=== PATIENT | female | born 1960 | race Caucasian/White ===

== ENCOUNTER 2020-07-28 16:42 | Emergency (ER) | payer MEDICARE, MEDICAID, SELFPAY ==
[2020-07-28 16:46] VITALS: BP 100/65; PULSE 90; RESP 18; TEMP 36.7; O2SAT 97; BMI 50.6
[2020-07-28 18:12] VITALS: BP 108/66; PULSE 82; RESP 18; TEMP 36.9
[2020-07-28] MEDS: ondansetron HCL 4 MG/2 ML VIAL IVPUSH ×2 (18:31→22:08)
[2020-07-28 18:38] LABS: MANUAL DIFF FLAG NO
[2020-07-28 18:42] LABS: Basophils Percent Auto 0.3 % (0-2); Eosinophils Percent Auto 0.4 % (0-4); Hematocrit 46.5 % (37-47); Hemoglobin 15.7 g/dl (12.0-16.0); Imm Gran Abs Auto 0.05 X10*3/uL (0.00-0.03); Imm Gran Pct Auto 0.6 % (0.0-0.4); Lymphocytes Absolute Auto 2.6 X10*3/uL (1.2-4.9); Lymphocytes Percent Auto 32.8 % (20-40); Mean Corpuscular HGB Conc 33.8 g/dl (31.0-35.0); Mean Corpuscular Hemoglobin 29.7 pg (27.0-33.0); Mean Corpuscular Volume 87.9 fL (80-98); Mean Platelet Volume 9.9 fL (9.4-12.3); Monocytes Absolute Auto 0.4 X10*3/uL (0.1-1.2); Monocytes Percent Auto 4.9 % (2-11); Neutrophils Absolute Auto 4.8 X10*3/uL (2.0-8.3); Platelet Count 309 X10*3/uL (160-400); Red Blood Count 5.29 X10*6/uL (4.20-5.50); Red Cell Distribution Width 11.9 % (11.0-16.0); White Blood Count 7.8 X10*3/uL (4.8-10.8)
[2020-07-28 18:48] LABS: Prothrombin Time 11.5 SEC (10.8-13.0)
[2020-07-28 18:51] LABS: Partial Thromboplastin Time 28.2 SEC (24.1-38.0)
[2020-07-28 19:11] LABS: Alanine Aminotransferase 38 U/L (0-31); Alkaline Phosphatase 67 U/L (39-117); Anion Gap 19 (12-20); Aspartate Amino Transferase 24 U/L (5-31); Bilirubin Total 0.6 mg/dL (0.0-1.0); Blood Urea Nitrogen 29 mg/dL (9-16); Calcium 9.4 mg/dL (8.4-10.2); Carbon Dioxide 25 mmol/L (22-29); Chloride 91 mmol/L (96-108); Creatinine Clr Calc Pharmacy 82.5; Estimated Glomerular Filt Rate 56; Glucose Random 429 mg/dL (60-115); Sodium 130 mmol/L (135-145); Total Protein 6.4 g/dL (6.5-8.0)
--- NOTE | 2020-07-28 19:14 | CT_ITS ---
EXAMINATION: CT ABDOMEN AND PELVIS WITHOUT CONTRAST CLINICAL INFORMATION: Abdominal pain. COMPARISON: None TECHNIQUE: Multidetector volumetric imaging was performed from the superior aspect of the liver through the pubic symphysis. Sagittal and coronal reformatted images were obtained on the technologist's workstation. This CT examination was performed using dose optimization techniques as appropriate, variously including the following: *Automated exposure control. *Adjustment of mA and/or kV according to patient size (this includes techniques or standardized protocols for targeted exams where dose is matched to indication/reason for exam; i.e. extremities or head). *Use of iterative reconstruction technique. DLP: 396 mGy-cm FINDINGS: LUNG BASES: Mild bibasilar atelectasis. LIVER, GALLBLADDER, AND BILIARY TREE: No focal lesions. No biliary duct dilatation. Gallbladder is surgically absent. PANCREAS: Homogeneous attenuation. No acute inflammatory changes. SPLEEN: No lesions. ADRENAL GLANDS: Unremarkable. KIDNEYS AND URETERS: No renal or ureteral calculi are seen. No hydronephrosis. No suspicious lesions identified. BLADDER: Unremarkable. GASTROINTESTINAL TRACT: There are contents within the lumen of the stomach. No dilated small bowel loops. There is a moderate volume stool in the large colon. No colonic wall thickening or pericolonic inflammatory changes. Suspected prior appendectomy. No free fluid or free air. ABDOMINAL WALL: No significant hernia is appreciated. LYMPH NODES: No lymphadenopathy is identified in the abdomen or pelvis. VASCULAR: Moderate atherosclerotic vascular calcification. IVC filter present. PELVIC VISCERA: Within normal limits for CT. Suspected tubal ligation clips. No free fluid in the pelvis. OSSEOUS STRUCTURES: Status post L5-S1 instrumented posterior spinal fusion, with intervertebral disc spaces. Multilevel degenerative changes of the spine. There is a spinal stimulator, with leads extending to the thoracic region. CT/CT abdomen pelvis wo con IMPRESSION: 1. No acute findings identified in the abdomen or pelvis. 2. Status post cholecystectomy. 3. Mild bibasilar atelectasis. 4. Moderate volume stool in the large colon. 5. Additional findings and details as above.
[2020-07-28] MEDS: 0.9 % Sodium Chloride 1,000 ML 999 ML IV (19:28)
--- NOTE | 2020-07-28 21:08 | ED_ITS ---
HPI - Abdominal Pain General Chief Complaint: Abdominal Pain Stated Complaint: abdominal pain Time Seen by Provider: 07/28/20 17:57 Source: patient Mode of arrival: ambulatory Limitations: no limitations History of Present Illness HPI narrative: 60-year-old female with past medical history that is significant for COPD, Asthma, Depression, DM, Hypothyroidism, GERD, Hypotension, Hypercoagulability disorder who presents today with complaint of 4 months of ongoing abdominal pain with associated nausea and vomiting. States she has had this issue in the past however due to the COVID-19 she has not followed up with GI and the nausea and vomiting is getting worse over past several days that prompted her come to emergency room today. Denies any fever chills. No URI symptoms. No chest pain or shortness of breath. No recent travel or sick contacts. MD elicited complaint: abdominal pain Onset (ago): month(s) Pain Consistency: constant Location: diffuse Severity: moderate Quality: aching Radiation: none Migration to: no migration Exacerbating factors: nothing Relieving factors: nothing Related Data Allergies Allergy/AdvReac Type Severity Reaction Status Date / Time ciprofloxacin [From CIPRO] Allergy Unknown UNKNOWN Verified 07/28/20 16:51 Review of Systems Review of Systems Constitutional: No Weight loss, No Fever, No Chills, No Night Sweats, No Fatigue, No Malaise ENT/Mouth: No Hearing loss, No Ear Pain, No Nasal Congestion, No Sinus Pain, No Hoarseness, No sore throat, No Rhinorrhea, No Swallowing Difficulty Eyes: No Eye Pain, No Swelling, No Redness, No Foreign Body, No Discharge, No Vision Changes Cardiovascular: No Chest Pain, No SOB, No Dyspnea on Exertion, No Orthopnea, No Edema, No Palpitations Respiratory: No Cough, No Sputum, No Wheezing, No Smoke Exposure, No Dyspnea Gastrointestinal: As noted in HPI, No Hematochezia, No Melena Genitourinary: no irregular bleeding, No Dysuria, No Urinary Frequency, No Hematuria, No Urinary Incontinence, No Urgency, No Flank Pain, No Urinary Flow Changes, No Hesitancy Musculoskeletal: No joint pain, No Myalgias, No Joint Swelling Skin: No Skin Lesions, No rash Neuro: No Weakness, No Numbness, No Paresthesias, No Loss of Consciousness, No Dizziness, No Headache Psych: No Anxiety/Panic, No Depression, No SI/HI/AH/VH, No Social Issues Heme/Lymph: No Bruising, No Bleeding,No Lymphadenopathy Endocrine: No Polyuria, No Polydipsia, No Temperature Intolerance Yes all other systems are reviewed and are negative Physical Exam Vital Signs: Vital Signs: Last Vital Signs Temp 98.4 F 07/28/20 18:12 Pulse 82 07/28/20 18:12 Resp 18 07/28/20 18:12 BP 108/66 07/28/20 18:12 Pulse Ox 97 07/28/20 16:46 Body Mass Index 50.6 Reviewed Const: General: cooperative; No acute distress or intoxicated appearing Nutritional Appearance: cachectic and malnourished Orientation/consciousness: patient oriented x3 HENMT: Head: Yes normal to inspection Ears: hearing grossly normal bilaterally Eyes: General: appearance normal, both eyes and all related structures Visu al Dobbins: normal visual dobbins by confrontation Neck: Neck: Yes normal visual inspection and No tender Thyroid: Thyroid normal Chest: Chest palpation & inspection: normal inspection of the chest Resp: Effort & Inspection: normal respiratory effort Auscultation: clear to auscultation bilaterally Cardio: Jugular venous distension: no JVD Rate: regular rate Rhythm: regular rhythm GI: Inspection: Yes normal to inspection Percussion: Yes normal to percussion Auscultation: normal bowel sounds : General: Yes no CVA tenderness Back/Spine/Pelvis: Back: no CVA tenderness Skin: General skin exam: no rashes or lesions noted Neuro: General: patient oriented x3 Extrem: General: Yes normal to inspection Course Course Course Narrative: lab shows hyperglycemia without evidence of diabetic ketoacidosis otherwise labs stable. CT of the abdomen pelvis pending. Hyperglycemia treated with IV fluids p.o. C repeat pending at this time. At this time sign-out to Renee GUTIERREZ pending CT results and re-evaluation. MDM - Abdominal Pain Differential Diagnosis Differential diagnosis: Likely abdominal pain, gastroenteritis and gastritis; Un likely aortic dissection, acute appendicitis, bowel perforation, calculus of kidney, constipation, diverticulitis, endometriosis, mesenteric ischemia, pancreatitis, peptic ulcer disease, renal colic and small bowel obstruction Medical Records Attestation: I reviewed the patient's medical records. Lab Data Attestation: I reviewed the patient's lab results. Result diagrams: 07/28/20 18:19 07/28/20 18:19 Labs: Lab Results 07/28/20 07/28/20 07/28/20 Range/Units 18:19 18:19 18:19 WBC 7.8 (4.8-10.8) X10*3/uL RBC 5.29 (4.20-5.50) X10*6/uL Hgb 15.7 (12.0-16.0) g/dl Hct 46.5 (37-47) % MCV 87.9 (80-98) fL MCH 29.7 (27.0-33.0) pg MCHC 33.8 (31.0-35.0) g/dl RDW 11.9 (11.0-16.0) % Plt Count 309 (160-400) X10*3/uL MPV 9.9 (9.4-12.3) fL Immature Gran % (Auto) 0.6 H (0.0-0.4) % Neut % (Auto) 61.0 (45-73) % Lymph % (Auto) 32.8 (20-40) % [place] % (Auto) 4.9 (2-11) % Eos % (Auto) 0.4 (0-4) % Baso % (Auto) 0.3 (0-2) % Lymph # (Auto) 2.6 (1.2-4.9) X10*3/uL [place] # (Auto) 0.4 (0.1-1.2) X10*3/uL Eos # (Auto) 0.0 (0.0-0.4) X10*3/uL Baso # (Auto) 0.0 (0.0-0.2) X10*3/uL Abs Immat Gran (auto) 0.05 H (0.00-0.03) X10*3/uL Absolute Neuts (auto) 4.8 (2.0-8.3) X10*3/uL Absolute Nucleated RBC 0.000 (0.0-0.012) X10*3/uL Nucleated RBC % (auto) 0.0 (0.0-0.2) /100WBC PT 11.5 (10.8-13.0) SEC INR 1.0 (0.9-1.1) APTT 28.2 (24.1-38.0) SEC Sodium 130 L (135-145) mmol/L Potassium 5.0 (3.3-5.1) mmol/l Chloride 91 L (96-108) mmol/L Carbon Dioxide 25 (22-29) mmol/L Anion Gap 19 (12-20) BUN 29 H (9-16) mg/dL Creatinine 1.01 (0.5-1.4) mg/dL Estim Creat Clear Calc 82.5 Estimated GFR 56 Random Glucose 429 H* (60-115) mg/dL Calcium 9.4 (8.4-10.2) mg/dL Total Bilirubin 0.6 (0.0-1.0) mg/dL AST 24 (5-31) U/L ALT 38 H (0-31) U/L Alkaline Phosphatase 67 (39-117) U/L Total Protein 6.4 L (6.5-8.0) g/dL Albumin 4.0 (3.5-5.0) g/dL [facility] Past Medical History Medical History Pancreatitis, chronic Social History Social History Alcohol intake: unknown Smoking Status: Unknown if ever smoked Use of substances other than those prescribed or required for medical reasons: Unknown Advance Directives: No Advance Directives Information Provided: Yes
[2020-07-28 22:01] LABS: Glucose, Whole Blood 324 mg/dL (60-115)
[2020-07-28] MEDS: Morphine Sulfate 4 MG/ML CARTRIDGE 2 MG IVPUSH (22:04)
[2020-07-28] MEDS: Insulin Regular, Human 100 UNIT/ML 3 ML VIAL IVPUSH (22:04)
[2020-07-28 22:12] VITALS: BP 116/68; PULSE 84; RESP 16; O2SAT 96
[2020-07-28 22:19] LABS: Lipase 15 U/L (8-78)
[2020-07-28 23:03] LABS: Glucose, Whole Blood 232 mg/dL (60-115)
== END 2020-07-29 00:18 | disposition home or self-care (01) ==
PROVIDERS: Nurse Practitioner Primary Care; Physician Assistant Medical; Emergency Provider Student in an Organized Health Care Education/Training Program; PCP Internal Medicine Medical Oncology
DX: R10.9 Unspecified abdominal pain (principal); R11.2 Nausea with vomiting, unspecified; D68.69 Other thrombophilia; I10 Essential (primary) hypertension; Z79.899 Other long term (current) drug therapy
CPT/HCPCS: 36415; 74176; 80053; 82947; 83690; 85025; 85610; 85730; 96361; 96374; 96375; 96376; 99284; J2270; J2405

== ENCOUNTER 2020-09-01 21:13 | Emergency (ER) | payer MEDICARE, MEDICAID, SELFPAY ==
[2020-09-01 21:17] VITALS: BP 133/66; PULSE 95; RESP 20; TEMP 36.6; O2SAT 98; BMI 19.9
--- NOTE | 2020-09-01 21:36 | ED.GENADULT ---
HPI - General Adult General Chief complaint: General Medical Stated complaint: AMS Time Seen by Provider: 09/01/20 21:36 Source: patient Mode of arrival: EMS Limitations: no limitations History of Present Illness HPI narrative: Patient diabetic with history of TBI with the frequent forgetfulness use the timer of her cell phone to remind her about the insulin but lately she is not able to remember that and has not take her insulin may be like for 2 days. Today she was very shaking checked her blood sugar was reading very high and came to the hospital patient does not remember her blood sugar for last 2-3 days as she has forgetfulness secondary to TBI. Patient denies any vomiting no loss of consciousness no significant injury during a shaking episode patient remembers everything no loss of consciousness no incontinence patient also complaining of vaginal candidiasis discharge blood glucose in the ER was 503 patient very anxious Related Data Previous Rx's Medication Instructions Recorded ibuprofen 800 mg PO Q8H PRN #14 tab 07/28/20 oxycodone-acetaminophen [Percocet] 1 tab PO Q6H PRN #10 tab 07/28/20 peg 3350-electrolytes [Golytely] 240 ml PO Q10M #1 ea 07/28/20 Allergies Allergy/AdvReac Type Severity Reaction Status Date / Time ciprofloxacin [From CIPRO] Allergy Unknown UNKNOWN Verified 07/28/20 16:51 Review of Systems Review of Systems: Constitutional : No Weight loss, No Fever, No Chills ENT/Mouth : No sore throat, No Rhinorrhea Eyes: No Eye Pain, No Swelling Cardiovascular : No Chest Pain, no palpitations Respiratory : No Cough, No Sputum, no shortness of breath Gastrointestinal : no Nausea, No Vomiting, No Diarrhea, No abdominal Pain, no black stools Genitourinary : No Dysuria, No Urinary Frequency Musculoskeletal : No joint pain, No Myalgias, No Joint Swelling Skin : No Skin Lesions, No rash Neuro : No Weakness, No Numbness, No Dizziness, No Headache Psych : + Anxiety/Panic, No Depression Heme/Lymph: No Bruising, No Lymphadenopathy Endocrine : No Polyuria, No Polydipsia All other systems reviewed and are negative [facility] Past Medical History Medical History Pancreatitis, chronic Social History Social History Alcohol intake: unknown Smoking Status: Unknown if ever smoked Advance Directives: No Advance Directives Information Provided: Yes Physical Exam Vital Signs: Vital Signs: Last Vital Signs Temp 97.6 F 09/01/20 22:33 Pulse 87 09/01/20 22:33 Resp 16 09/01/20 22:33 BP 120/64 09/01/20 22:33 Pulse Ox 99 09/01/20 22:33 Body Mass Index 19.9 Appearance: Alert. Oriented X3. No acute distress. Anxious+ Eyes: Pupils equal, round and reactive to light. ENT: Pharynx normal. Neck: Normal inspection. Neck supple. CVS: Normal heart rate and rhythm. Pulses normal. Respiratory: No respiratory distress. Breath sounds normal. Abdomen: Soft and nontender. Bowel sounds are present, no mass palpable, no CVA tenderness Skin: Skin warm and dry. Normal skin color. Normal skin turgor. Extremities: No lower extremity edema. Neuro: Oriented X 3. No motor deficit. No sensory deficit. Course Course Course Narrative: Patient with type 2 diabetes with hyperglycemia without ketoacidosis blood sugar improved plan to keep her in the ER consult Case Management in the morning for VNA arrangement for diabetic management at home, Patient signed out to Dr. singh for disposition Medical Decision Making MDM Narrative Medical decision making narrative: Patient type 2 diabetic with hyperglycemia secondary to nonuse taking insulin because of memory issues. Feeling weak and tired blood sugar 727 without any ketoacidosis . After IV hydration and insulin patient's blood sugar improved to 459 feeling much better will give her her evening Lantus dose plan to keep her till morning to get the employment evaluator/case manager involved for VNA for insulin management at home Lab Data Lab results reviewed: Yes I reviewed the patient's lab results. Result diagrams: 09/01/20 21:52 09/01/20 21:52 Labs: Lab Results 09/01/20 09/01/20 09/01/20 Range/Units 21:52 21:52 21:52 WBC 6.8 (4.8-10.8) X10*3/uL RBC 4.50 (4.20-5.50) X10*6/uL Hgb 13.1 (12.0-16.0) g/dl Hct 40.3 (37-47) % MCV 89.6 (80-98) fL MCH 29.1 (27.0-33.0) pg MCHC 32.5 (31.0-35.0) g/dl RDW 12.2 (11.0-16.0) % Plt Count 222 D (160-400) X10*3/uL MPV 10.7 (9.4-12.3) fL Immature Gran % (Auto) 0.3 (0.0-0.4) % Neut % (Auto) 64.5 (45-73) % Lymph % (Auto) 29.7 (20-40) % [place] % (Auto) 4.6 (2-11) % Eos % (Auto) 0.6 (0-4) % Baso % (Auto) 0.3 (0-2) % Lymph # (Auto) 2.0 (1.2-4.9) X10*3/uL [place] # (Auto) 0.3 (0.1-1.2) X10*3/uL Eos # (Auto) 0.0 (0.0-0.4) X10*3/uL Baso # (Auto) 0.0 (0.0-0.2) X10*3/uL Abs Immat Gran (auto) 0.02 (0.00-0.03) X10*3/uL Absolute Neuts (auto) 4.4 (2.0-8.3) X10*3/uL Absolute Nucleated RBC 0.000 (0.0-0.012) X10*3/uL Nucleated RBC % (auto) 0.0 (0.0-0.2) /100WBC Sodium 134 L (135-145) mmol/L Potassium 4.7 (3.3-5.1) mmol/l Chloride 103 (96-108) mmol/L Carbon Dioxide 21 L (22-29) mmol/L Anion Gap 15 (12-20) BUN 15 (9-16) mg/dL Creatinine 1.04 (0.5-1.4) mg/dL Estim Creat Clear Calc 54.9 Estimated GFR 54 POC Glucose (60-115) mg/dL Random Glucose 727 H* (60-115) mg/dL Calcium 7.9 L D (8.4-10.2) mg/dL Total Bilirubin < 0.2 (0.0-1.0) mg/dL Direct Bilirubin < 0.2 (0.0-0.5) mg/dL AST 36 H D (5-31) U/L ALT 52 H (0-31) U/L Alkaline Phosphatase 62 (39-117) U/L Total Protein 5.9 L (6.5-8.0) g/dL Albumin 3.7 (3.5-5.0) g/dL Lipase 35 (8-78) U/L Urine Color STRAW Urine Appearance CLEAR Urine pH 6.0 (5.0-8.0) Ur Specific [place] <= 1.005 (1.005-1.025) Urine Protein NEG (NEG-TRACE) MG/DL Urine Glucose (UA) >=1000 H (NEG) MG/DL Urine Ketones NEG (NEG) MG/DL Urine Blood TRACE (NEG) Urine Nitrite NEG (NEG) Ur Leukocyte Esterase NEG (NEG) Urine RBC 0 (0) /HPF Urine WBC 0 (0-4) /HPF Ur Squamous Epith Cells 1+ /LPF Urine Bacteria 1+ /LPF Urine Yeast 1+ /HPF 09/01/20 09/02/20 Range/Units 23:33 01:36 WBC (4.8-10.8) X10*3/uL RBC (4.20-5.50) X10*6/uL Hgb (12.0-16.0) g/dl Hct (37-47) % MCV (80-98) fL MCH (27.0-33.0) pg MCHC (31.0-35.0) g/dl RDW (11.0-16.0) % Plt Count (160-400) X10*3/uL MPV (9.4-12.3) fL Immature Gran % (Auto) (0.0-0.4) % Neut % (Auto) (45-73) % Lymph % (Auto) (20-40) % [place] % (Auto) (2-11) % Eos % (Auto) (0-4) % Baso % (Auto) (0-2) % Lymph # (Auto) (1.2-4.9) X10*3/uL [place] # (Auto) (0.1-1.2) X10*3/uL Eos # (Auto) (0.0-0.4) X10*3/uL Baso # (Auto) (0.0-0.2) X10*3/uL Abs Immat Gran (auto) (0.00-0.03) X10*3/uL Absolute Neuts (auto) (2.0-8.3) X10*3/uL Absolute Nucleated RBC (0.0-0.012) X10*3/uL Nucleated RBC % (auto) (0.0-0.2) /100WBC Sodium (135-145) mmol/L Potassium (3.3-5.1) mmol/l Chloride (96-108) mmol/L Carbon Dioxide (22-29) mmol/L Anion Gap (12-20) BUN (9-16) mg/dL Creatinine (0.5-1.4) mg/dL Estim Creat Clear Calc Estimated GFR POC Glucose 459 H* 192 H (60-115) mg/dL Random Glucose (60-115) mg/dL Calcium (8.4-10.2) mg/dL Total Bilirubin (0.0-1.0) mg/dL Direct Bilirubin (0.0-0.5) mg/dL AST (5-31) U/L ALT (0-31) U/L Alkaline Phosphatase (39-117) U/L Total Protein (6.5-8.0) g/dL Albumin (3.5-5.0) g/dL Lipase (8-78) U/L Urine Color Urine Appearance Urine pH (5.0-8.0) Ur Specific [place] (1.005-1.025) Urine Protein (NEG-TRACE) MG/DL Urine Glucose (UA) (NEG) MG/DL Urine Ketones (NEG) MG/DL Urine Blood (NEG) Urine Nitrite (NEG) Ur Leukocyte Esterase (NEG) Urine RBC (0) /HPF Urine WBC (0-4) /HPF Ur Squamous Epith Cells /LPF Urine Bacteria /LPF Urine Yeast /HPF Discharge Plan Discharge Clinical Impression: Hyperglycemia due to type 2 diabetes mellitus Qualifiers: Diabetes mellitus technician terminal and repeater insulin use: with technician terminal and repeater use Qualified Code(s): E11.65 - Type 2 diabetes mellitus with hyperglycemia Prescriptions: No [facility] Golytely 227.1-21.5-6.36 gram powder in packet 240 ml PO Q10M Qty: 1 RF: 0 ibuprofen 800 mg tablet 800 mg PO Q8H PRN (Reason: pain) Qty: 14 RF: 0 oxycodone-acetaminophen [Percocet] 5-325 mg tablet 1 tab PO Q6H PRN (Reason: pain) Qty: 10 RF: 0
--- NOTE | 2020-09-01 21:38 | ECG_ITS ---
Test Reason : GENERAL MEDICAL Blood Pressure : / mmHG Vent. Rate : 085 BPM Atrial Rate : 085 BPM P-R Int : 144 ms QRS Dur : 080 ms QT Int : 384 ms P-R-T Axes : 064 023 024 degrees QTc Int : 456 ms Normal sinus rhythm Nonspecific T wave abnormality Abnormal ECG When compared with ECG of 16-JAN-2020 18:57, No significant change was found Referred By: Bran Wan Electronically Signed By:Amador Yates
--- NOTE | 2020-09-01 21:54 | PC.NURSE ---
AWARE OF 2 HI BGL
[2020-09-01 22:18] LABS: Basophils Percent Auto 0.3 % (0-2); Eosinophils Percent Auto 0.6 % (0-4); Hematocrit 40.3 % (37-47); Hemoglobin 13.1 g/dl (12.0-16.0); Imm Gran Abs Auto 0.02 X10*3/uL (0.00-0.03); Imm Gran Pct Auto 0.3 % (0.0-0.4); Lymphocytes Percent Auto 29.7 % (20-40); Mean Corpuscular HGB Conc 32.5 g/dl (31.0-35.0); Mean Corpuscular Hemoglobin 29.1 pg (27.0-33.0); Mean Corpuscular Volume 89.6 fL (80-98); Mean Platelet Volume 10.7 fL (9.4-12.3); Monocytes Absolute Auto 0.3 X10*3/uL (0.1-1.2); Monocytes Percent Auto 4.6 % (2-11); Neutrophils Absolute Auto 4.4 X10*3/uL (2.0-8.3); Neutrophils Percent Auto 64.5 % (45-73); Platelet Count 222 X10*3/uL (160-400); Red Cell Distribution Width 12.2 % (11.0-16.0); White Blood Count 6.8 X10*3/uL (4.8-10.8)
[2020-09-01 22:19] LABS: MANUAL DIFF FLAG NO
[2020-09-01 22:20] LABS: Appearance Urine CLEAR; Color Urine STRAW; Glucose Urine UA >=1000 MG/DL (NEG); Leukocyte Esterase Urine NEG (NEG); Nitrite Urine NEG (NEG); Specific Gravity - Urine <= 1.005 (1.005-1.025); Urine Blood TRACE (NEG); Urine Ketones NEG (NEG); Urine Protein NEG (NEG-TRACE)
[2020-09-01 22:23] VITALS: BP 120/64; PULSE 86; RESP 16; O2SAT 98
[2020-09-01] MEDS: 0.9 % Sodium Chloride 1,000 ML 999 ML IVCONT (22:23)
[2020-09-01] MEDS: Insulin Lispro 100 UNIT/ML 3 ML VIAL 14 UNIT SUBCUT (22:24)
[2020-09-01 22:26] LABS: RBC Urine 0 /HPF (0); Squamous Epithelial Cell Urine 1+ /LPF; WBC Urine 0 /HPF (0-4)
[2020-09-01 22:27] LABS: Bacteria Urine 1+ /LPF
[2020-09-01 22:33] VITALS: BP 120/64; PULSE 87; RESP 16; TEMP 36.4; O2SAT 99
[2020-09-01 23:02] LABS: Anion Gap 15 (12-20); Aspartate Amino Transferase 36 U/L (5-31); Bilirubin Direct < 0.2 mg/dL (0.0-0.5); Bilirubin Total < 0.2 mg/dL (0.0-1.0); Calcium 7.9 mg/dL (8.4-10.2); Carbon Dioxide 21 mmol/L (22-29); Chloride 103 mmol/L (96-108); Potassium 4.7 mmol/l (3.3-5.1); Sodium 134 mmol/L (135-145); Total Protein 5.9 g/dL (6.5-8.0)
[2020-09-01 23:09] LABS: Alanine Aminotransferase 52 U/L (0-31); Albumin Level 3.7 g/dL (3.5-5.0); Alkaline Phosphatase 62 U/L (39-117); Blood Urea Nitrogen 15 mg/dL (9-16); Creatinine Clr Calc Pharmacy 54.9; Estimated Glomerular Filt Rate 54; Lipase 35 U/L (8-78)
[2020-09-01 23:30] LABS: Glucose Random 727 mg/dL (60-115)
[2020-09-01 23:37] LABS: Glucose, Whole Blood 459 mg/dL (60-115)
--- NOTE | 2020-09-02 00:27 | XR_ITS ---
EXAMINATION: XR CHEST CLINICAL INFORMATION: Hyperglycemia COMPARISON: 01/16/2020 TECHNIQUE: Frontal view of the chest was obtained. FINDINGS: Cardiac leads overlie the chest. Spinal wiring noted. The lungs are well expanded. There is no focal consolidation, edema, or effusion. No pneumothorax. The cardiomediastinal silhouette is within normal limits. No acute osseous abnormality. XR/XR chest 1V IMPRESSION: Clear lungs.
[2020-09-02] MEDS: Insulin Lispro 100 UNIT/ML 3 ML VIAL 12 UNIT SUBCUT (00:29)
[2020-09-02] MEDS: Insulin Glargine,Hum.rec.anlog 100 UNIT/ML 10 ML VIAL 40 UNIT SUBCUT (00:30)
[2020-09-02] MEDS: 0.9 % Sodium Chloride 1,000 ML 999 ML IVCONT (00:40)
[2020-09-02 01:40] LABS: Glucose, Whole Blood 192 mg/dL (60-115)
[2020-09-02 02:08] LABS: Acetone, serum QL Negative (Negative)
[2020-09-02 02:30] LABS: COVID-19 Test Negative (Negative)
[2020-09-02 05:54] VITALS: PULSE 76; RESP 18; O2SAT 100
[2020-09-02 06:32] LABS: Glucose, Whole Blood 207 mg/dL (60-115)
[2020-09-02] MEDS: Ibuprofen 600 MG TABLET PO (08:13)
[2020-09-02 08:26] LABS: Glucose, Whole Blood 276 mg/dL (60-115)
[2020-09-02 08:38] LABS: Glucose, Whole Blood > 600 mg/dL (60-115)
[2020-09-02 09:50] VITALS: BP 130/64; PULSE 70; RESP 18; O2SAT 98
[2020-09-02 09:56] LABS: Glucose, Whole Blood 314 mg/dL (60-115)
--- NOTE | 2020-09-02 10:26 | MHC.CM.ED ---
Met with pt. She was very angry and upset that she has been in the ED overnight and she feels she hasn't received great care. CM listened and allowed pt to vent her concerns. Reviewed plan of care and completed CM assessment. Pt has TBI and is very forgetful. Her memory issues make it hard for her to successfully take her insulin. Pt also tells CM that she falls alot. She lives with a room mate, who is not very helpful to her. She states she has no family here that can help her. Pt cannot remember who her primary care doctor is and tells me they are in [place]. Does not have HCP , but is willing to complete one with her ex-, Jose Guadalupe Engel, as her HCP. Pt states she has been in rehab before, and that it was [facility] Has had OT/PT but cannot remember what agency. Will need PT evaluation with hx of falls. Juice GUTIERREZ aware and order placed. Will follow for d/c needs
[2020-09-02] MEDS: Insulin Regular, Human 100 UNIT/ML 3 ML VIAL 8 UNIT SUBCUT (10:58)
[2020-09-02 11:08] VITALS: BP 130/64; PULSE 70; O2SAT 98
--- NOTE | 2020-09-02 12:04 | MHC.CM.ED ---
PT recommend STR as pt is at very high risk for falls, has ataxic gait and decreased strength. Pt is worried about Covid, but willing to go to rehab. Enc to follow safety protocols, mask, distance, handwashing. Pt has no suggestions for placement and is agreeable to referrals locally. PCP is Seema Navarrete.
[2020-09-02] MEDS: Ibuprofen 800 MG TABLET PO (12:27)
--- NOTE | 2020-09-02 12:48 | MHC.CM.ED ---
HCP completed, reviewed, and signed. Pt very cooperative. Awaiting STR. Referrals placed. Will follow for d/c needs
--- NOTE | 2020-09-02 13:31 | PC.NURSE ---
pt was initially upset. Spoke with pt to discuss what was making her angry, she states she has been having health problems for about a year. Pt states she has had abdominal pain, daily nausea and significant weight loss. Discussed diabetes with pt, She states she has not been taking her meds as directed because she has problems with memory from TBI and states she gets meds mixed up. Pt states she is uncomfortable, needing to use bedpan, also hungry. Pt used bed kelly, has been given a meal and is resting quietly and states she is less angry and feels reassured. She states she is willing to discuss admission or placement and says she does no think she can go home based on how she has been feeling. Will continue to monitor
[2020-09-02 15:04] LABS: Glucose, Whole Blood 254 mg/dL (60-115)
[2020-09-02 15:12] VITALS: BP 146/74; PULSE 67; RESP 16; TEMP 36.7; O2SAT 99
--- NOTE | 2020-09-02 15:22 | MHC.CM.ED ---
Pt accepted placement at [facility]. [facility] arranged with [facility] for 4pm. Pt aware
--- NOTE | 2020-09-02 15:32 | PC.NURSE ---
Pt o go [facility]. Multiple attempts to call report, calls unanswered.
== END 2020-09-02 16:30 | disposition home or self-care (01) ==
PROVIDERS: Emergency Provider Internal Medicine
DX: R41.82 Altered mental status, unspecified (principal); E11.65 Type 2 diabetes mellitus with hyperglycemia; B37.3 Candidiasis of vulva and vagina; Z20.828 Contact with and (suspected) exposure to other viral communicable diseases; Z79.899 Other long term (current) drug therapy
CPT/HCPCS: 36415; 71045; 80048; 80076; 81001; 82009; 82947; 83690; 85025; 87635; 93005; 96360; 96361; 97162; 99284

== ENCOUNTER → 2020-10-27 14:12 | Outpatient (BNVA) | payer MEDICARE, MEDICAID, SELFPAY | PROVIDERS: PCP Internal Medicine; Visit Provider Physician Assistant | DX: K59.01 Slow transit constipation (principal) | CPT/HCPCS: Q3014 ==

== ENCOUNTER 2020-10-29 09:12 | Outpatient (REF) | payer MEDICARE, MEDICAID, SELFPAY ==
[2020-10-29 12:05] LABS: Anion Gap 12 (12-20); Blood Urea Nitrogen 18 mg/dL (9-16); Carbon Dioxide 30 mmol/L (22-29); Chloride 100 mmol/L (96-108); Estimated Glomerular Filt Rate > 60; Potassium 4.5 mmol/L (3.3-5.1); Sodium 137 mmol/L (135-145)
[2020-10-29 12:16] LABS: TSH reflex Free T4 0.72 uIU/mL (0.32-4.0)
[2020-10-29 12:24] LABS: Thyroid Stimulating Hormone 0.73 uIU/mL (0.32-4.0)
== END 2020-10-29 09:13 | disposition home or self-care (01) ==
LOC: HO.HMGCLDS 09:12
PROVIDERS: Physician Assistant; PCP Internal Medicine; Visit Provider Internal Medicine
DX: Z00.01 Encounter for general adult medical examination with abnormal findings (principal); E87.1 Hypo-osmolality and hyponatremia; E03.9 Hypothyroidism, unspecified; K59.09 Other constipation
CPT/HCPCS: 36415; 80051; 82565; 84443; 84520

== ENCOUNTER 2020-11-14 21:09 | Emergency (ER) | payer MEDICARE, MEDICAID, SELFPAY ==
--- NOTE | ~2020-11-14 | CT_ITS ---
EXAMINATION: CT HEAD WITHOUT CONTRAST CT CERVICAL SPINE WITHOUT CONTRAST CLINICAL INFORMATION: Fall COMPARISON: 02/14/2019 TECHNIQUE: Multidetector CT imaging of the head and cervical spine was performed without the use of intravenous contrast. Multiplanar reformats are reviewed. This CT examination was performed using dose optimization techniques as appropriate, variously including the following: *Automated exposure control *Adjustment of mA and/or kV according to patient size (this includes techniques or standardized protocols for targeted exams where dose is matched to indication/reason for exam; i.e. extremities or head) *Use of iterative reconstruction technique DLP: 1128 mGy-cm. FINDINGS: There is no evidence of acute intracranial hemorrhage or territorial infarction. No abnormal mass effect or midline shift is seen. Vee to white matter differentiation is well preserved. No extra-axial fluid collections are identified. The ventricles are normal in size. Patchy and confluent subcortical and periventricular white matter low-attenuation changes statistically related to chronic microangiopathic gliosis. Cavernous carotid calcifications. The osseous structures and soft tissues are normal. The mastoid air cells and visualized portions of the paranasal sinuses are well-aerated. Atlantooccipital alignment is maintained. The vertebral bodies and posterior elements align normally. No acute fracture or subluxation. Vertebral body heights are maintained. Endplate osteophytes present throughout the cervical spine. Prominent disc osteophyte complex present at C5-C6. Diffuse disc bulge present at C4-C5, with associated calcification posteriorly. No significant central canal stenosis or foraminal narrowing. The paraspinal soft tissues are unremarkable. The imaged lung apices are clear CT/CT cervical spine wo con IMPRESSION: No acute intracranial pathology. Moderate chronic white matter small vessel ischemic changes. No cervical spine fracture or malalignment.
--- NOTE | ~2020-11-14 | XR_ITS ---
EXAMINATION: XR ANKLE, RIGHT CLINICAL INFORMATION: Lateral malleolus pain. COMPARISON: None TECHNIQUE: AP, lateral, and mortise views of the right ankle. FINDINGS: Mildly displaced, oblique fracture through the distal fibular diametaphysis with cortical step off measuring approximately 0.2 cm. Minimal lateral subluxation of the talar dome in relation to the tibial plafond. No joint space narrowing or marginal osteophytes. No osseous erosion. Atherosclerotic calcifications. Plantar calcaneal spur. XR/XR ankle RT min 3V IMPRESSION: Mildly displaced, oblique fracture through the distal fibular diametaphysis with minimal lateral subluxation of the talar dome.
--- NOTE | ~2020-11-14 | XR_ITS ---
EXAMINATION: XR HIP, RIGHT CLINICAL INFORMATION: Fall. Lateral right hip pain. COMPARISON: CT abdomen/pelvis dated 07/28/2020. TECHNIQUE: AP view of the pelvis as well as AP and frog-leg lateral views of the right hip. FINDINGS: No acute fracture or dislocation. Mild joint space narrowing with small marginal osteophytes. Small lateral acetabular subchondral cystic change. Accessory ossicles adjacent to the acetabulum, unchanged. Atherosclerotic calcifications. XR/XR hip RT min 2V IMPRESSION: No acute fracture or dislocation.
--- NOTE | ~2020-11-14 | XR_ITS ---
EXAMINATION: XR RIBS, RIGHT CLINICAL INFORMATION: Right lateral rib pain. COMPARISON: Most recent chest radiograph dated 09/02/2020. TECHNIQUE: PA view of the chest and 3 views of the right ribs. FINDINGS: Lungs are clear. No consolidation, pneumothorax, or pleural effusion. The cardiomediastinal silhouette and pulmonary vasculature are normal. Osseous structures are unremarkable. Ribs are intact. No fractures are identified. XR/XR ribs RT min 3V w CXR1V IMPRESSION: No displaced fracture.
--- NOTE | 2020-11-14 21:27 | ECG_ITS ---
Test Reason : SYNCOPE Blood Pressure : / mmHG Vent. Rate : 101 BPM Atrial Rate : 101 BPM P-R Int : 134 ms QRS Dur : 068 ms QT Int : 328 ms P-R-T Axes : 068 012 062 degrees QTc Int : 425 ms Sinus tachycardia Cannot rule out Anterior infarct , age undetermined Abnormal ECG When compared with ECG of 01-SEP-2020 22:24, Nonspecific T wave abnormality no longer evident in Inferior leads Nonspecific T wave abnormality no longer evident in Lateral leads Referred By: Michaelle Boateng Electronically Signed By:FINESSE CHILDERS
--- NOTE | 2020-11-14 21:34 | ED_ITS ---
HPI - General Adult General Chief complaint: Syncope Stated complaint: fall Time Seen by Provider: 11/14/20 21:13 Source: patient Mode of arrival: EMS Limitations: no limitations History of Present Illness HPI narrative: Patient comes to the emergency room by EMS. Patient coming from home, states she lives with her boyfriend. Patient has history of multiple falls over the last few months. Approximately 2 months ago she was discharged from the [facility], initially patient did well at home, then she started declining again, falling multiple times. Patient reports that in the last week she has fallen over 10 times. Yesterday she fell, hit her head, did not lose consciousness. This evening, patient walk towards the bathroom, did not reach it, her boyfriend found her on the floor. Patient states that she does not remember passing out. Patient complaining of right-sided rib pain, right hip pain and right ankle pain. Patient states the ankle is what bothers her the most. Patient denies chest pain, no shortness of breath. Patient is requesting to be seen by case management in the morning, and hopes to be able to return to the [facility] for rehab Related Data Home Medications Medication Instructions Recorded Confirmed blood-glucose meter [OneTouch 11/14/20 11/14/20 Verio Flex meter] lactulose PO 11/14/20 lancets [OneTouch UltraSoft 11/14/20 11/14/20 Lancets] lubiprostone [Amitiza] 1 cap PO BID 11/14/20 11/14/20 metformin 1 tab PO DAILY 11/14/20 11/14/20 metoclopramide HCl 1 tab PO BID 11/14/20 11/14/20 omeprazole 1 cap PO DAILY 11/14/20 11/14/20 ondansetron HCl 1 tab PO Q8H PRN 11/14/20 11/14/20 rivaroxaban [Xarelto] 1 tab PO DAILY 11/14/20 11/14/20 ropinirole 1 tab PO BEDTIME 11/14/20 11/14/20 rosuvastatin 1 tab PO BEDTIME 11/14/20 11/14/20 sitagliptin [Januvia] 1 tab PO DAILY 11/14/20 11/14/20 tiotropium bromide [Spiriva with 1 cap INHALATION DAILY 11/14/20 11/14/20 HandiHaler] venlafaxine 1 cap PO DAILY 11/14/20 11/14/20 Previous Rx's Medication Instructions Recorded midodrine 5 mg tablet 5 mg PO TID 90 Days #270 tab 10/29/20 sennosides 8.6 mg-docusate sodium 1 tab PO BEDTIME #28 tab 11/04/20 50 mg tablet Allergies Allergy/AdvReac Type Severity Reaction Status Date / Time ciprofloxacin [From CIPRO] Allergy Unknown UNKNOWN Verified 10/27/20 14:12 clarithromycin [From Biaxin] Allergy Unknown unknown Verified 10/27/20 14:12 doxycycline Allergy Unknown Unknown Verified 10/27/20 14:12 Review of Systems Review of Systems: Constitutional : No Weight loss, No Fever, No Chills, No Night Sweats, chronic fatigue ENT/Mouth : No Hearing loss, No Ear Pain, No Nasal Congestion, No Sinus Pain, No Hoarseness, No sore throat, No Rhinorrhea, No Swallowing Difficulty Eyes: No Eye Pain, No Swelling, No Redness, No Foreign Body, No Discharge, No Vision Changes Cardiovascular : No Chest Pain, No SOB, No Dyspnea on Exertion, No Orthopnea, No Edema, No Palpitations Respiratory : No Cough, No Sputum, No Wheezing, No Smoke Exposure, No Dyspnea Gastrointestinal : No Nausea, No Vomiting, No Diarrhea, No Constipation, No abdominal Pain, No Hematochezia, No Melena Genitourinary : no irregular bleeding, No Dysuria, No Urinary Frequency, No Hematuria, No Urinary Incontinence, No Urgency, No Flank Pain, No Urinary Flow Changes, No Hesitancy, states that she sometimes urinate in her depends because she cannot reach the bathroom on time Musculoskeletal : No joint pain, No Myalgias, No Joint Swelling Skin : No Skin Lesions, No rash Neuro : Denies focal Weakness, No Numbness, No Paresthesias, complaining of an episode of loss of consciousness today, no headache Psych : No Anxiety/Panic, No Depression, No SI/HI/AH/VH, No Social Issues, Heme/Lymph: No Bruising, No Bleeding,No Lymphadenopathy Endocrine : No Polyuria, No Polydipsia, No Temperature Intolerance PMFSH Past Medical History Medical History Diabetes Gastroparesis Pancreatitis Pancreatitis, chronic TBI (traumatic brain injury) Surgical History H/O thyroidectomy Family History Family History Mother Diabetes Stroke Heart attack Dementia Father Stroke Heart attack Social History Social History Household Members: Significant Other Alcohol intake: never Smoking Status: Never smoker Use of substances other than those prescribed or required for medical reasons: No Advance Directives: No Current occupational status: unemployed Physical Exam Vital Signs: Vital Signs: Last Vital Signs Temp 98.4 F 11/15/20 02:00 Pulse 92 11/15/20 06:00 Resp 15 11/15/20 06:00 BP 125/64 11/15/20 06:00 Pulse Ox 99 11/15/20 06:00 Body Mass Index 58.6 Appearance: Alert. Oriented X3. No acute distress. Eyes: Pupils equal, round and reactive to light. ENT: Pharynx normal. Neck: Normal inspection. Neck supple. No lymph nodes noted. No crepitus, cervical collar in place, no C-spine tenderness or palpable step-offs CVS: Normal heart rate and rhythm. Pulses normal. Normal S1 and S2, right-sided rib pain Respiratory: No respiratory distress. Breath sounds normal. No Wheezing. No rales Abdomen: Soft and nontender. No rigidity. No distention. good BS x4 Skin: Skin warm and dry. Normal skin color. Normal skin turgor. Extremities: No lower extremity edema. Complaining of right-sided hip pain. Complaining of right lateral malleolus pain, no ecchymosis, mild to moderate swelling Neuro: Oriented X 3. Cranial nerves 2-12 grossly intact Course Course Course Narrative: Physician observation was entered at 07:30, however it started before midnight. Patient is waiting to be seen by cage management and physical therapy. Sign-out given to Dr. Carson Patient will need follow-up with Orthopedics Medical Decision Making Lab Data Result diagrams: 11/14/20 22:12 11/14/20 22:12 Labs: Lab Results 11/14/20 11/14/20 11/14/20 Range/Units 22:12 22:12 22:12 WBC 9.8 (4.8-10.8) X10*3/uL RBC 4.96 (4.20-5.50) X10*6/uL Hgb 14.1 (12.0-16.0) g/dl Hct 42.4 (37-47) % MCV 85.5 (80-98) fL MCH 28.4 (27.0-33.0) pg MCHC 33.3 (31.0-35.0) g/dl RDW 11.6 (11.0-16.0) % Plt Count 227 (160-400) X10*3/uL MPV 9.9 (9.4-12.3) fL Immature Gran % (Auto) 0.2 (0.0-0.4) % Neut % (Auto) 83.9 H (45-73) % Lymph % (Auto) 7.9 L (20-40) % [place] % (Auto) 7.8 (2-11) % Eos % (Auto) 0.1 (0-4) % Baso % (Auto) 0.1 (0-2) % Lymph # (Auto) 0.8 L (1.2-4.9) X10*3/uL [place] # (Auto) 0.8 (0.1-1.2) X10*3/uL Eos # (Auto) 0.0 (0.0-0.4) X10*3/uL Baso # (Auto) 0.0 (0.0-0.2) X10*3/uL Abs Immat Gran (auto) 0.02 (0.00-0.03) X10*3/uL Absolute Neuts (auto) 8.2 (2.0-8.3) X10*3/uL Absolute Nucleated RBC 0.000 (0.0-0.012) X10*3/uL Nucleated RBC % (auto) 0.0 (0.0-0.2) /100WBC Sodium 135 (135-145) mmol/L Potassium 4.4 (3.3-5.1) mmol/L Chloride 97 (96-108) mmol/L Carbon Dioxide 23 (22-29) mmol/L Anion Gap 19 (12-20) BUN 22 H (9-16) mg/dL Creatinine 0.68 (0.5-1.4) mg/dL Estim Creat Clear Calc 134.6 Estimated GFR > 60 Random Glucose 305 H D (60-115) mg/dL Calcium 9.1 D (8.4-10.2) mg/dL Total Bilirubin 0.2 (0.0-1.0) mg/dL Direct Bilirubin < 0.2 (0.0-0.5) mg/dL AST 13 D (5-31) U/L ALT 18 (0-31) U/L Alkaline Phosphatase 82 D (39-117) U/L Troponin I High Sens 4.2 (<3.5-17.0) ng/L Total Protein 6.7 (6.5-8.0) g/dL Albumin 3.7 (3.5-5.0) g/dL Urine Color Urine Appearance Urine pH (5.0-8.0) Ur Specific [place] (1.005-1.025) Urine Protein (NEG-TRACE) MG/DL Urine Glucose (UA) (NEG) MG/DL Urine Ketones (NEG) MG/DL Urine Blood (NEG) Urine Nitrite (NEG) Ur Leukocyte Esterase (NEG) Urine RBC (0) /HPF Urine WBC (0-4) /HPF Ur Squamous Epith Cells /LPF Urine Bacteria /LPF Urine Opiates Screen (Not Detect) Ur Barbiturates Screen (Not Detect) Ur Phencyclidine Scrn (Not Detect) Ur Amphetamines Screen (Not Detect) U Benzodiazepines Scrn (Not Detect) Urine Cocaine Screen (Not Detect) U Marijuana (THC) Screen (Not Detect) COVID-19 (MC) (Negative) COVID-19 Clin Com 11/14/20 11/14/20 11/14/20 Range/Units 22:12 22:12 22:12 WBC (4.8-10.8) X10*3/uL RBC (4.20-5.50) X10*6/uL Hgb (12.0-16.0) g/dl Hct (37-47) % MCV (80-98) fL MCH (27.0-33.0) pg MCHC (31.0-35.0) g/dl RDW (11.0-16.0) % Plt Count (160-400) X10*3/uL MPV (9.4-12.3) fL Immature Gran % (Auto) (0.0-0.4) % Neut % (Auto) (45-73) % Lymph % (Auto) (20-40) % [place] % (Auto) (2-11) % Eos % (Auto) (0-4) % Baso % (Auto) (0-2) % Lymph # (Auto) (1.2-4.9) X10*3/uL [place] # (Auto) (0.1-1.2) X10*3/uL Eos # (Auto) (0.0-0.4) X10*3/uL Baso # (Auto) (0.0-0.2) X10*3/uL Abs Immat Gran (auto) (0.00-0.03) X10*3/uL Absolute Neuts (auto) (2.0-8.3) X10*3/uL Absolute Nucleated RBC (0.0-0.012) X10*3/uL Nucleated RBC % (auto) (0.0-0.2) /100WBC Sodium (135-145) mmol/L Potassium (3.3-5.1) mmol/L Chloride (96-108) mmol/L Carbon Dioxide (22-29) mmol/L Anion Gap (12-20) BUN (9-16) mg/dL Creatinine (0.5-1.4) mg/dL Estim Creat Clear Calc Estimated GFR Random Glucose (60-115) mg/dL Calcium (8.4-10.2) mg/dL Total Bilirubin (0.0-1.0) mg/dL Direct Bilirubin (0.0-0.5) mg/dL AST (5-31) U/L ALT (0-31) U/L Alkaline Phosphatase (39-117) U/L Troponin I High Sens (<3.5-17.0) ng/L Total Protein (6.5-8.0) g/dL Albumin (3.5-5.0) g/dL Urine Color YELLOW Urine Appearance CLOUDY Urine pH 6.0 (5.0-8.0) Ur Specific [place] 1.025 (1.005-1.025) Urine Protein 1+ H (NEG-TRACE) MG/DL Urine Glucose (UA) >=1000 H (NEG) MG/DL Urine Ketones 40 (NEG) MG/DL Urine Blood 2+ H (NEG) Urine Nitrite NEG (NEG) Ur Leukocyte Esterase NEG (NEG) Urine RBC 5-9 H (0) /HPF Urine WBC 76-150 H (0-4) /HPF Ur Squamous Epith Cells 2+ /LPF Urine Bacteria 2+ /LPF Urine Opiates Screen Not Detected (Not Detect) Ur Barbiturates Screen Not Detected (Not Detect) Ur Phencyclidine Scrn Not Detected (Not Detect) Ur Amphetamines Screen Not Detected (Not Detect) U Benzodiazepines Scrn Not Detected (Not Detect) Urine Cocaine Screen Not Detected (Not Detect) U Marijuana (THC) Screen Not Detected (Not Detect) COVID-19 (MC) Negative (Negative) COVID-19 Clin Com See Note Imaging Data Right ankle x-ray: Radiologist's impression: Mildly displaced, oblique fracture through the distal fibular diametaphysis with cortical step off measuring approximately 0.2 cm. Minimal lateral subluxation of the talar dome in relation to the tibial plafond. No joint space narrowing or marginal osteophytes. No osseous erosion. Atherosclerotic calcifications. Plantar calcaneal spur. XR/XR ankle RT min 3V IMPRESSION: Mildly displaced, oblique fracture through the distal fibular diametaphysis with minimal lateral subluxation of the talar dome. Head and neck CT: Radiologist's impression: FINDINGS: There is no evidence of acute intracranial hemorrhage or territorial infarction. No abnormal mass effect or midline shift is seen. Vee to white matter differentiation is well preserved. No extra-axial fluid collections are identified. The ventricles are normal in size. Patchy and confluent subcortical and periventricular white matter low-attenuation changes statistically related to chronic microangiopathic gliosis. Cavernous carotid calcifications. The osseous structures and soft tissues are normal. The mastoid air cells and visualized portions of the paranasal sinuses are well-aerated. Atlantooccipital alignment is maintained. The vertebral bodies and posterior elements align normally. No acute fracture or subluxation. Vertebral body heights are maintained. Endplate osteophytes present throughout the cervical spine. Prominent disc osteophyte complex present at C5-C6. Diffuse disc bulge present at C4-C5, with associated calcification posteriorly. No significant central canal stenosis or foraminal narrowing. The paraspinal soft tissues are unremarkable. The imaged lung apices are clear CT/CT cervical spine wo con IMPRESSION: No acute intracranial pathology. Moderate chronic white matter small vessel ischemic changes. No cervical spine fracture or malalignment. Rib x-ray: Radiologist's impression: Lungs are clear. No consolidation, pneumothorax, or pleural effusion. The cardiomediastinal silhouette and pulmonary vasculature are normal. Osseous structures are unremarkable. Ribs are intact. No fractures are identified. XR/XR ribs RT min 3V w CXR1V IMPRESSION: No displaced fracture. Hip x-ray: Radiologist's impression: No acute fracture or dislocation. Mild joint space narrowing with small marginal osteophytes. Small lateral acetabular subchondral cystic change. Accessory ossicles adjacent to the acetabulum, unchanged. Atherosclerotic calcifications. XR/XR hip RT min 2V IMPRESSION: No acute fracture or dislocation. ECG Data Attestation: I personally reviewed and interpreted this ECG as follows: (Heart rate 101, sinus tachycardia, no ST segment depression or elevation, no T-wave inversion, QTC 425) Discharge Plan Discharge Clinical Impression: Multiple falls, Hyperglycemia Closed fibular fracture Qualifiers: Encounter type: initial encounter Fibula location: lateral malleolus Fracture alignment: displaced Laterality: right Qualified Code(s): S82.61XA - Displaced fracture of lateral malleolus of right fibula, initial encounter for closed fracture UTI (urinary tract infection) Qualifiers: Urinary tract infection type: site unspecified Hematuria presence: without hematuria Qualified Code(s): N39.0 - Urinary tract infection, site not specified Prescriptions: No [facility] sennosides-docusate sodium [Senna Plus] 8.6-50 mg tablet 1 tab PO BEDTIME Qty: 28 RF: 3 metformin 500 mg tablet 1 tab PO DAILY RF: 0 (DME) blood-glucose meter [TelePacific CommunicationsTouch Verio Flex meter] Misc MISCELLANEOUS RF: 0 ondansetron HCl 4 mg tablet 1 tab PO Q8H PRN (Reason: Nausea) RF: 0 venlafaxine 150 mg capsule,extended release 24hr 1 cap PO DAILY RF: 0 (DME) lancets [OneTouch UltraSoft Lancets] Misc MISCELLANEOUS RF: 0 metoclopramide HCl 5 mg tablet 1 tab PO BID RF: 0 ropinirole 0.5 mg tablet 1 tab PO BEDTIME RF: 0 omeprazole 20 mg capsule,delayed release(DR/EC) 1 cap PO DAILY RF: 0 rosuvastatin 10 mg tablet 1 tab PO BEDTIME RF: 0 Spiriva with HandiHaler 18 mcg capsule, w/inhalation device 1 cap inhalation DAILY RF: 0 lactulose 10 gram/15 mL solution PO RF: 0 Januvia 50 mg tablet 1 tab PO DAILY RF: 0 lubiprostone [Amitiza] 8 mcg capsule 1 cap PO BID RF: 0 Xarelto 20 mg tablet 1 tab PO DAILY RF: 0 midodrine 5 mg tablet 5 mg PO TID 90 Days Qty: 270 RF: 0
[2020-11-14 21:36] VITALS: BP 150/78; PULSE 96; RESP 15; TEMP 37.2; O2SAT 97; BMI 58.6
[2020-11-14 21:45] VITALS: O2SAT 97
[2020-11-14 22:20] LABS: Basophils Percent Auto 0.1 % (0-2); Eosinophils Percent Auto 0.1 % (0-4); Hematocrit 42.4 % (37-47); Hemoglobin 14.1 g/dl (12.0-16.0); Imm Gran Abs Auto 0.02 X10*3/uL (0.00-0.03); Imm Gran Pct Auto 0.2 % (0.0-0.4); Lymphocytes Absolute Auto 0.8 X10*3/uL (1.2-4.9); Lymphocytes Percent Auto 7.9 % (20-40); MANUAL DIFF FLAG NO; Mean Corpuscular HGB Conc 33.3 g/dl (31.0-35.0); Mean Corpuscular Hemoglobin 28.4 pg (27.0-33.0); Mean Corpuscular Volume 85.5 fL (80-98); Mean Platelet Volume 9.9 fL (9.4-12.3); Monocytes Absolute Auto 0.8 X10*3/uL (0.1-1.2); Monocytes Percent Auto 7.8 % (2-11); Neutrophils Absolute Auto 8.2 X10*3/uL (2.0-8.3); Neutrophils Percent Auto 83.9 % (45-73); Platelet Count 227 X10*3/uL (160-400); Red Blood Count 4.96 X10*6/uL (4.20-5.50); Red Cell Distribution Width 11.6 % (11.0-16.0); White Blood Count 9.8 X10*3/uL (4.8-10.8)
[2020-11-14 22:23] LABS: Glucose Urine UA >=1000 MG/DL (NEG); Leukocyte Esterase Urine NEG (NEG); Nitrite Urine NEG (NEG); Specific Gravity - Urine 1.025 (1.005-1.025); Urine Blood 2+ (NEG); Urine Ketones 40 MG/DL (NEG); Urine Protein 1+ MG/DL (NEG-TRACE)
[2020-11-14 22:24] LABS: Appearance Urine CLOUDY; Color Urine YELLOW
[2020-11-14 22:34] LABS: COVID-19 Test Negative (Negative); IDNOW Serial# 9DD0AD1C; UACC CULT YES
[2020-11-14 22:35] LABS: Bacteria Urine 2+ /LPF; Squamous Epithelial Cell Urine 2+ /LPF
[2020-11-14 22:38] VITALS: BP 141/81; PULSE 99; RESP 18; TEMP 36.9; O2SAT 95
[2020-11-14 22:42] LABS: Amphetamine Screen Urine Not Detected (Not Detect); Barbiturates, Urine Not Detected (Not Detect); Benzodiazepines Screen Urine Not Detected (Not Detect); Cannabinoid Screen Urine Not Detected (Not Detect); Cocaine Screen Urine Not Detected (Not Detect); Opiate Screen Urine Not Detected (Not Detect); Phencyclidine Screen Urine Not Detected (Not Detect)
[2020-11-14 22:49] LABS: Troponin-I High Sensitivity 4.2 ng/L (<3.5-17.0)
[2020-11-14 22:50] LABS: Alanine Aminotransferase 18 U/L (0-31); Albumin Level 3.7 g/dL (3.5-5.0); Alkaline Phosphatase 82 U/L (39-117); Anion Gap 19 (12-20); Aspartate Amino Transferase 13 U/L (5-31); Bilirubin Direct < 0.2 mg/dL (0.0-0.5); Bilirubin Total 0.2 mg/dL (0.0-1.0); Blood Urea Nitrogen 22 mg/dL (9-16); Calcium 9.1 mg/dL (8.4-10.2); Carbon Dioxide 23 mmol/L (22-29); Chloride 97 mmol/L (96-108); Creatinine Clr Calc Pharmacy 134.6; Estimated Glomerular Filt Rate > 60; Glucose Random 305 mg/dL (60-115); Potassium 4.4 mmol/L (3.3-5.1); Sodium 135 mmol/L (135-145); Total Protein 6.7 g/dL (6.5-8.0)
[2020-11-14] MEDS: cefTRIAXone sodium 1 GM in 0.9 % Sodium Chloride 50 ML IV (23:00)
[2020-11-14] MEDS: Insulin Regular, Human 100 UNIT/ML 3 ML VIAL IVPUSH (23:00)
[2020-11-15] VITALS (15 sets, daily range): BP systolic 86–138; BP diastolic 53–78; PULSE 83–100; RESP 15–18; TEMP 36.6–37.2; O2SAT 94–99
--- NOTE | 2020-11-15 00:24 | PC.NURSE ---
POSTERIOR LEG SPLINT ON RIGHT LEG DONE ON PT
[2020-11-15] MEDS: oxyCODONE HCl Immed Release 5 MG TABLET 10 MG PO (06:22)
--- NOTE | 2020-11-15 08:33 | PC.NURSE ---
Splint to right lower extremity intact, +cms to distal extremity. Physical therapy to bedside for evaluation at this time. Linens changed, pt changed to hospital attire. Speech clear, breathing even/unlabored. Reports after leaving SNF a few weeks ago more frequent falls at home. Med rec reviewed by provider
[2020-11-15] MEDS: Metoclopramide HCl 5 MG TABLET PO ×2 (09:00→20:02)
[2020-11-15] MEDS: Atorvastatin Calcium 40 MG TABLET PO (09:00)
[2020-11-15] MEDS: Rivaroxaban 20 MG TABLET PO (09:00)
[2020-11-15] MEDS: SITagliptin Phosphate 50 MG TABLET PO (09:00)
[2020-11-15] MEDS: Venlafaxine HCl ER 150 MG CAP.ER.24H PO (09:00)
[2020-11-15] MEDS: metFORMIN HCl 500 MG TABLET PO (09:00)
[2020-11-15] MEDS: Midodrine HCl 5 MG TABLET PO ×3 (09:01→20:01)
[2020-11-15] MEDS: Omeprazole 20 MG CAPSULE.DR PO (09:01)
[2020-11-15] MEDS: Levothyroxine Sodium 112 MCG TABLET 224 MCG PO (09:34)
--- NOTE | 2020-11-15 09:35 | PC.NURSE ---
Pt alert/oriented, accepted AM meds without difficulty. Levothyroxine added to med rec and administered.
--- NOTE | 2020-11-15 12:48 | PC.NURSE ---
patient a&ox3, eating lunch at this time, vss, rt leg splinted/+csm, c/o pain, will continue to monitor.
[2020-11-15] MEDS: Acetaminophen 325 MG TABLET 650 MG PO ×2 (13:38→20:01)
[2020-11-15] MEDS: oxyCODONE HCl Immed Release 5 MG TABLET PO ×2 (13:38→20:02)
--- NOTE | 2020-11-15 13:40 | PC.NURSE ---
patient medicated per order
--- NOTE | 2020-11-15 14:59 | MHC.CM.ED ---
PT eval is recomending [facility], pt requesting [facility] home, [place]. a ref. has been made to snf, pt has been accepted. at this time we are still waiting for ins. auth. . and rn in e.d. are aware of this dc plan. cm to cont. to follow.
--- NOTE | 2020-11-15 16:55 | PC.NURSE ---
pt a&ox3, pt states her pain got better after the medication down to 5/10, pt continues to have + csm of rt foot, vitals remain stable, will continue to monitor.
[2020-11-15] MEDS: rOPINIRole HCL 0.5 MG TABLET PO (20:01)
[2020-11-15] MEDS: 0.9 % Sodium Chloride 1,000 ML 999 ML IV (20:02)
[2020-11-15] MEDS: Sennosides/Docusate Sodium TABLET 1 TAB PO (20:02)
--- NOTE | 2020-11-15 20:04 | PC.NURSE ---
ivf started per order, pt medicated for rt foot pain as well as medicated with nightly meds
--- NOTE | 2020-11-15 22:27 | MHC.CM.ED ---
Addendum entered by Rosemary Krishnamurthy 11/15/20 22:32: S.O. Tres Horvath ([phone]), who lives with pt. HCP is on file. HCP-Jose Guadalupe Engel ([phone]). Original Note: CM met with pt. No insurance authorization tonight. Per SNF, will touch base in the am. PT recommends STR and [facility] ([place], [place]) has a bed. Pt aware she will remain in ED overnight and will be transported to SNF after authorization. Pt lives with S.O. She uses a walker and has SOFTWARE TESTER and Pt/OT services through [facility] ). Unable to verify due to lateness of hour. States her PCP is Dr. Eulalia Mancia. CM to follow for d/c needs.
--- NOTE | 2020-11-15 23:15 | PC.NURSE ---
Report received. PT is using the phone in bed. Pleasant and calm. PT waiting to be transferred to a rehab facility.
[2020-11-16 02:00] VITALS: RESP 18
[2020-11-16] MEDS: oxyCODONE HCl Immed Release 5 MG TABLET PO (02:25)
[2020-11-16] MEDS: Acetaminophen 325 MG TABLET 650 MG PO (02:25)
--- NOTE | 2020-11-16 02:59 | PC.NURSE ---
Late entry: PT requesting PRN pain medication. Pain rated at 7 out of 10.
[2020-11-16 06:00] VITALS: BP 104/54; PULSE 80; RESP 16; TEMP 36.9; O2SAT 95
--- NOTE | 2020-11-16 07:36 | PC.NURSE ---
PT SITTING UP ON STRETCHER EATING BREAKFAST, WILL AMB TO BATHROOM TO GET CLEANED UP WHEN SHE IS FINISHED
--- NOTE | 2020-11-16 07:40 | PC.NURSE ---
PT UNABLE TO AMB TO BR WITH WALKER, VERY UNSTEADY. GIVEN BED RAMOS, LINENS CHANGED
[2020-11-16] MEDS: Levothyroxine Sodium 112 MCG TABLET 224 MCG PO (08:23)
[2020-11-16] MEDS: Omeprazole 20 MG CAPSULE.DR PO (08:23)
[2020-11-16 08:24] VITALS: BP 126/68; PULSE 77
[2020-11-16] MEDS: Atorvastatin Calcium 40 MG TABLET PO (08:24)
[2020-11-16] MEDS: metFORMIN HCl 500 MG TABLET PO (08:24)
[2020-11-16] MEDS: Midodrine HCl 5 MG TABLET PO (08:24)
--- NOTE | 2020-11-16 08:38 | MHC.CM.ED ---
Patient remains in ER. Waiting for insurance auth for [facility]. Continue to monitor for d/c needs.
--- NOTE | 2020-11-16 10:12 | PC.NURSE ---
report called to victor m
--- NOTE | 2020-11-16 10:21 | MHC.CM.ED ---
LATE ENTRY FROM 11/16/20 AT 915AM: Insurance auth has been obtained by [facility]. Patient can leave here at 10am. [facility] booked. Med nec with chart. Patient aware and requesting t/W ask Tres to come to the ER prior to patient being discharged. T/W spoke with Tres via telephone at [phone]. Tres will not be able to make it in time. Siri GUTIERREZ and Amy RN aware of discharge plan and time. Continue to monitor for d/c needs.
== END 2020-11-16 10:17 | disposition skilled nursing facility (03) ==
PROVIDERS: Emergency Provider Emergency Medicine; PCP Internal Medicine
DX: S82.61XA Displaced fracture of lateral malleolus of right fibula, initial encounter for closed fracture (principal); W01.0XXA Fall on same level from slipping, tripping and stumbling without subsequent striking against object, initial encounter; E11.65 Type 2 diabetes mellitus with hyperglycemia; N39.0 Urinary tract infection, site not specified; M25.551 Pain in right hip; R07.81 Pleurodynia; Z20.822 Contact with and (suspected) exposure to COVID-19; Z91.81 History of falling; Z87.820 Personal history of traumatic brain injury; Y93.89 Activity, other specified; Y92.019 Unspecified place in single-family (private) house as the place of occurrence of the external cause; Y99.9 Unspecified external cause status; Z79.899 Other long term (current) drug therapy; Z79.01 Long term (current) use of anticoagulants
CPT/HCPCS: 29515; 36415; 70450; 71101; 72125; 73502; 73610; 80048; 80076; 80307; 81001; 84484; 85025; 87086; 87088; 87186; 87635; 93005; 96361; 96365; 96374; 97162; 99285; J0696

== ENCOUNTER → 2020-11-19 14:15 | Outpatient (BNVA) | payer MEDICARE, MEDICAID, SELFPAY | PROVIDERS: Visit Provider Physician Assistant | DX: S82.831A Other fracture of upper and lower end of right fibula, initial encounter for closed fracture (principal) | CPT/HCPCS: 99202 ==

== ENCOUNTER 2020-12-17 07:49 | Outpatient (REF) | payer MEDICARE, MEDICAID, SELFPAY ==
--- NOTE | ~2020-12-17 | XR_ITS ---
EXAMINATION: XR ANKLE, RIGHT CLINICAL INFORMATION: Fracture follow-up COMPARISON: 11/14/2020 TECHNIQUE: AP, lateral, and mortise views of the right ankle. FINDINGS: Stable alignment of the distal fibular fracture with some callus formation although no definite osseous bridging. No new abnormality. XR/XR ankle RT min 3V IMPRESSION: Stable alignment of the distal fibular fracture with some callus formation although no definite osseous bridging. No new abnormality.
== END 2020-12-17 07:50 | disposition home or self-care (01) ==
LOC: HO.HOSX 07:49
PROVIDERS: Visit Provider Physician Assistant
DX: S82.831D Other fracture of upper and lower end of right fibula, subsequent encounter for closed fracture with routine healing (principal)
CPT/HCPCS: 73610; 99212

== ENCOUNTER 2021-01-28 13:51 | Outpatient (REF) | payer MEDICARE, MEDICAID, SELFPAY ==
--- NOTE | ~2021-01-28 | XR_ITS ---
EXAMINATION: XR ANKLE, RIGHT CLINICAL INFORMATION: Distal fibular fracture. Follow-up. COMPARISON: Radiographs right ankle 12/17/2020, 11/14/2020 TECHNIQUE: AP, lateral, and mortise views of the right ankle. FINDINGS: Oblique fracture distal fibular is unchanged in alignment. Fracture line still visible. Callus formation is slightly increased from prior exam. The ankle mortise is symmetric. There is mild osteopenia. No acute fracture or dislocation or destructive process. Plantar calcaneal spur is seen. There are calcifications in the vasculature again noted. XR/XR ankle RT min 3V IMPRESSION: Distal fibular fracture unchanged in alignment. There is some increased callus formation since prior exam. Fracture line still visible.
== END 2021-01-28 13:52 | disposition home or self-care (01) ==
LOC: HO.XRAY 13:51
PROVIDERS: PCP Internal Medicine; Visit Provider Physician Assistant
DX: S82.409D Unspecified fracture of shaft of unspecified fibula, subsequent encounter for closed fracture with routine healing (principal); M25.571 Pain in right ankle and joints of right foot; M79.672 Pain in left foot
CPT/HCPCS: 73610; 99212

== ENCOUNTER 2021-01-28 14:46 | Outpatient (REF) | payer MEDICARE, MEDICAID, SELFPAY | END 2021-01-28 14:47 | disposition home or self-care (01) | LOC: HO.HOSX 14:46 | PROVIDERS: Visit Provider Physician Assistant | DX: Z13.89 Encounter for screening for other disorder (principal) ==

== ENCOUNTER 2021-02-01 16:20 | Outpatient (REF) | payer MEDICARE, MEDICAID, SELFPAY ==
--- NOTE | ~2021-02-01 | XR_ITS ---
EXAMINATION: XR FOOT, LEFT CLINICAL INFORMATION: Pain left foot. COMPARISON: None TECHNIQUE: AP, lateral, and oblique views of the left foot. FINDINGS: An obliquely fracture distal left fifth metatarsal with mild displacement. No additional fractures seen. There is no dislocation seen. The soft tissues are normal. XR/XR foot LT min 3V IMPRESSION: Oblique fracture distal fifth metatarsal.
== END 2021-02-01 16:21 | disposition home or self-care (01) ==
LOC: HO.XRAY 16:20
PROVIDERS: PCP Internal Medicine; Visit Provider Physician Assistant
DX: M79.672 Pain in left foot (principal)
CPT/HCPCS: 73630

== ENCOUNTER 2021-02-23 09:26 | Outpatient (REF) | payer MEDICARE, MEDICAID, SELFPAY ==
[2021-02-24 08:22] LABS: BV Int Neg Control Negative (Negative); BV Int Pos Control Positive (Positive)
[2021-02-26 09:06] LABS: HPV mRNA E6/E7 rflx Not Detected (Not Detected)
== END 2021-02-23 09:27 | disposition home or self-care (01) ==
LOC: HO.LAB 09:26
PROVIDERS: PCP Internal Medicine; Visit Provider Advanced Practice Midwife
DX: Z01.411 Encounter for gynecological examination (general) (routine) with abnormal findings (principal); Z11.51 Encounter for screening for human papillomavirus (HPV); N89.8 Other specified noninflammatory disorders of vagina
CPT/HCPCS: 87480; 87510; 87624; 87660; 88142

== ENCOUNTER 2021-03-03 12:24 | Outpatient (REF) | payer MEDICARE, MEDICAID, SELFPAY ==
--- NOTE | ~2021-03-03 | MM_ITS ---
EXAMINATION: MM SCREENING DIGITAL BREAST TOMOSYNTHESIS, BILATERAL CLINICAL INFORMATION: Screening. Asymptomatic. The lifetime risk of breast cancer based on the Tyrer-Cuzick Model is 5.9%. COMPARISON: Mammography: January 01, 2012 and studies dating back to September 26, 2005 TECHNIQUE: Digital breast tomosynthesis is performed in both the craniocaudal and mediolateral oblique views along with computer-aided detection (CAD). Synthesized 2D images are generated from the tomosynthesis. FINDINGS: There are scattered areas of fibroglandular density (ACR BI-RADS breast composition Category b). There are no significant masses, abnormal calcifications, or other abnormalities. MM/MM tomosynthesis screening BI IMPRESSION: There are no significant changes from prior study. ASSESSMENT: BI-RADS 1: Negative RECOMMENDATION: Routine annual mammography screening. This patient's information was entered into a reminder system with a target due date for their next mammogram.
== END 2021-03-03 12:25 | disposition home or self-care (01) ==
LOC: HO.MAMMO 12:24
PROVIDERS: Visit Provider Internal Medicine
DX: Z12.31 Encounter for screening mammogram for malignant neoplasm of breast (principal)
CPT/HCPCS: 77063; 77067

== ENCOUNTER 2021-03-15 07:56 | Outpatient (REF) | payer MEDICARE, MEDICAID, SELFPAY ==
[2021-03-15 10:29] LABS: Hematocrit 41.6 % (37-47); Hemoglobin 13.4 g/dl (12.0-16.0)
[2021-03-15 10:33] LABS: Estimated Average Glucose 194 mg/dL; Hemoglobin A1c % 8.4 %
[2021-03-15 10:49] LABS: Alanine Aminotransferase 18 U/L (0-31); Albumin Level 3.8 g/dL (3.5-5.0); Alkaline Phosphatase 68 U/L (39-117); Anion Gap 12 (12-20); Aspartate Amino Transferase 11 U/L (5-31); Bilirubin Direct < 0.2 mg/dL (0.0-0.5); Bilirubin Total 0.3 mg/dL (0.0-1.0); Blood Urea Nitrogen 16 mg/dL (9-16); Calcium 9.7 mg/dL (8.4-10.2); Carbon Dioxide 28 mmol/L (22-29); Chloride 107 mmol/L (96-108); Cholesterol 170 mg/dL; Estimated Glomerular Filt Rate > 60; Glucose Fasting 160 mg/dL (60-99); HDL Cholesterol 63 mg/dL; LDL Cholesterol Calculated 94 mg/dl; Potassium 4.3 mmol/L (3.3-5.1); Sodium 143 mmol/L (135-145); Total Protein 6.3 g/dL (6.5-8.0); Triglycerides 66 mg/dL
[2021-03-15 11:05] LABS: Creatinine Urine 52.25 mg/dL; Microalbum/Creatinine Ratio Ur 40.1 ug/mg cr
[2021-03-15 11:08] LABS: TSH reflex Free T4 0.18 uIU/mL (0.32-4.0)
[2021-03-15 12:00] LABS: Free T4 (Free Thyroxine) 1.44 ng/dL (0.71-1.85)
[2021-03-16 11:09] LABS: LDL Cholesterol Direct 92 mg/dL (<100)
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
== END 2021-03-15 07:57 | disposition home or self-care (01) ==
LOC: HO.10HDL 07:56
PROVIDERS: PCP Internal Medicine; Visit Provider Nurse Practitioner Gerontology
DX: Z76.89 Persons encountering health services in other specified circumstances (principal); E11.42 Type 2 diabetes mellitus with diabetic polyneuropathy; R42 Dizziness and giddiness; R41.3 Other amnesia; R32 Unspecified urinary incontinence; R26.9 Unspecified abnormalities of gait and mobility; R11.10 Vomiting, unspecified; K59.01 Slow transit constipation; K31.84 Gastroparesis; K21.9 Gastro-esophageal reflux disease without esophagitis; G47.9 Sleep disorder, unspecified; G25.81 Restless legs syndrome; F41.1 Generalized anxiety disorder; E78.9 Disorder of lipoprotein metabolism, unspecified; E11.65 Type 2 diabetes mellitus with hyperglycemia; E11.40 Type 2 diabetes mellitus with diabetic neuropathy, unspecified; S06.9X9A Unspecified intracranial injury with loss of consciousness of unspecified duration, initial encounter; E03.9 Hypothyroidism, unspecified; E78.5 Hyperlipidemia, unspecified; Z86.718 Personal history of other venous thrombosis and embolism
CPT/HCPCS: 36415; 80053; 80061; 80076; 82043; 82248; 82947; 83036; 83721; 84439; 84443; 85014; 85018; 99212

== ENCOUNTER → 2021-03-31 12:13 | Outpatient (BNVA) | payer MEDICARE, MEDICAID, SELFPAY | PROVIDERS: PCP Internal Medicine; Visit Provider Nurse Practitioner Gerontology | CPT/HCPCS: Q3014 ==

== ENCOUNTER → 2021-04-06 13:23 | Outpatient (BNVA) | payer MEDICARE, MEDICAID, SELFPAY | PROVIDERS: PCP Internal Medicine; Visit Provider Physician Assistant | DX: E11.65 Type 2 diabetes mellitus with hyperglycemia (principal); R11.2 Nausea with vomiting, unspecified; G89.21 Chronic pain due to trauma; K31.84 Gastroparesis; K59.01 Slow transit constipation; F32.9 Major depressive disorder, single episode, unspecified | CPT/HCPCS: 99212 ==

== ENCOUNTER 2021-05-17 16:49 | Outpatient (REF) | payer MEDICARE, MEDICAID, SELFPAY ==
--- NOTE | ~2021-05-17 | XR_ITS ---
EXAMINATION: LUMBAR SPINE, RIGHT KNEE, RIGHT ANKLE, RIGHT FOOT, LEFT FOOT CLINICAL INFORMATION: Fall with pain COMPARISON: Left foot 02/01/2021, right ankle 01/28/2021, CT abdomen pelvis 05/17/2019 TECHNIQUE: 5 views lumbosacral spine, 4 views right knee, 2 views right ankle, 3 views right foot, 3 views left foot FINDINGS: Lumbar spine: There has been prior posterior fixation at L5-S1 with pedicular screws and screws and disc spacer. Alignment is good. No acute fracture or hardware failure is seen. Incidental note is made of an non retrievable IVC filter at its tip at L1-L2 interspace. An implanted neural transmitter is present in the right buttock with leads extending upwards. Surgical clips present in the left pelvis. No fractures seen. Right knee: There is a proximal fibular fracture present which is healing. Some degenerative changes are present in the knee joint mostly involving the medial compartment. No joint effusion is seen. Vascular calcifications are present. Right ankle: Again seen is a spiral fracture of the distal fibula with evidence of significant healing when compared to the 01/28/2021 study. No new fractures are seen. The ankle mortise appears stable. Right foot: No foot fracture is seen. No significant degenerative changes are present. Left foot: There is a spiral fracture of the fifth metatarsal with interval healing when compared to the 02/01/2021 study. No new fractures are seen. Vascular calcifications are present. XR/XR foot LT min 3V IMPRESSION: 1. Stable postop fixation L5-S1 lumbar spine. 2. Healing proximal and distal fibular fracture on the right 3. Healing left foot spiral fracture fifth metatarsal
--- NOTE | ~2021-05-17 | XR_ITS ---
EXAMINATION: LUMBAR SPINE, RIGHT KNEE, RIGHT ANKLE, RIGHT FOOT, LEFT FOOT CLINICAL INFORMATION: Fall with pain COMPARISON: Left foot 02/01/2021, right ankle 01/28/2021, CT abdomen pelvis 05/17/2019 TECHNIQUE: 5 views lumbosacral spine, 4 views right knee, 2 views right ankle, 3 views right foot, 3 views left foot FINDINGS: Lumbar spine: There has been prior posterior fixation at L5-S1 with pedicular screws and screws and disc spacer. Alignment is good. No acute fracture or hardware failure is seen. Incidental note is made of an non retrievable IVC filter at its tip at L1-L2 interspace. An implanted neural transmitter is present in the right buttock with leads extending upwards. Surgical clips present in the left pelvis. No fractures seen. Right knee: There is a proximal fibular fracture present which is healing. Some degenerative changes are present in the knee joint mostly involving the medial compartment. No joint effusion is seen. Vascular calcifications are present. Right ankle: Again seen is a spiral fracture of the distal fibula with evidence of significant healing when compared to the 01/28/2021 study. No new fractures are seen. The ankle mortise appears stable. Right foot: No foot fracture is seen. No significant degenerative changes are present. Left foot: There is a spiral fracture of the fifth metatarsal with interval healing when compared to the 02/01/2021 study. No new fractures are seen. Vascular calcifications are present. XR/XR ankle RT min 3V IMPRESSION: 1. Stable postop fixation L5-S1 lumbar spine. 2. Healing proximal and distal fibular fracture on the right 3. Healing left foot spiral fracture fifth metatarsal
--- NOTE | ~2021-05-17 | XR_ITS ---
EXAMINATION: LUMBAR SPINE, RIGHT KNEE, RIGHT ANKLE, RIGHT FOOT, LEFT FOOT CLINICAL INFORMATION: Fall with pain COMPARISON: Left foot 02/01/2021, right ankle 01/28/2021, CT abdomen pelvis 05/17/2019 TECHNIQUE: 5 views lumbosacral spine, 4 views right knee, 2 views right ankle, 3 views right foot, 3 views left foot FINDINGS: Lumbar spine: There has been prior posterior fixation at L5-S1 with pedicular screws and screws and disc spacer. Alignment is good. No acute fracture or hardware failure is seen. Incidental note is made of an non retrievable IVC filter at its tip at L1-L2 interspace. An implanted neural transmitter is present in the right buttock with leads extending upwards. Surgical clips present in the left pelvis. No fractures seen. Right knee: There is a proximal fibular fracture present which is healing. Some degenerative changes are present in the knee joint mostly involving the medial compartment. No joint effusion is seen. Vascular calcifications are present. Right ankle: Again seen is a spiral fracture of the distal fibula with evidence of significant healing when compared to the 01/28/2021 study. No new fractures are seen. The ankle mortise appears stable. Right foot: No foot fracture is seen. No significant degenerative changes are present. Left foot: There is a spiral fracture of the fifth metatarsal with interval healing when compared to the 02/01/2021 study. No new fractures are seen. Vascular calcifications are present. XR/XR lumbar spine 4V min IMPRESSION: 1. Stable postop fixation L5-S1 lumbar spine. 2. Healing proximal and distal fibular fracture on the right 3. Healing left foot spiral fracture fifth metatarsal
--- NOTE | ~2021-05-17 | XR_ITS ---
EXAMINATION: LUMBAR SPINE, RIGHT KNEE, RIGHT ANKLE, RIGHT FOOT, LEFT FOOT CLINICAL INFORMATION: Fall with pain COMPARISON: Left foot 02/01/2021, right ankle 01/28/2021, CT abdomen pelvis 05/17/2019 TECHNIQUE: 5 views lumbosacral spine, 4 views right knee, 2 views right ankle, 3 views right foot, 3 views left foot FINDINGS: Lumbar spine: There has been prior posterior fixation at L5-S1 with pedicular screws and screws and disc spacer. Alignment is good. No acute fracture or hardware failure is seen. Incidental note is made of an non retrievable IVC filter at its tip at L1-L2 interspace. An implanted neural transmitter is present in the right buttock with leads extending upwards. Surgical clips present in the left pelvis. No fractures seen. Right knee: There is a proximal fibular fracture present which is healing. Some degenerative changes are present in the knee joint mostly involving the medial compartment. No joint effusion is seen. Vascular calcifications are present. Right ankle: Again seen is a spiral fracture of the distal fibula with evidence of significant healing when compared to the 01/28/2021 study. No new fractures are seen. The ankle mortise appears stable. Right foot: No foot fracture is seen. No significant degenerative changes are present. Left foot: There is a spiral fracture of the fifth metatarsal with interval healing when compared to the 02/01/2021 study. No new fractures are seen. Vascular calcifications are present. XR/XR knee RT 4V IMPRESSION: 1. Stable postop fixation L5-S1 lumbar spine. 2. Healing proximal and distal fibular fracture on the right 3. Healing left foot spiral fracture fifth metatarsal
== END 2021-05-17 16:50 | disposition home or self-care (01) ==
LOC: HO.XRAY 16:49
PROVIDERS: PCP Internal Medicine; Visit Provider Nurse Practitioner
DX: M79.671 Pain in right foot (principal); M79.672 Pain in left foot; M25.561 Pain in right knee; M25.571 Pain in right ankle and joints of right foot; M54.5 Low back pain
CPT/HCPCS: 72110; 73564; 73610; 73630

== ENCOUNTER 2021-06-17 11:51 | Emergency (ER) | payer MEDICARE, MEDICAID, SELFPAY ==
--- NOTE | ~2021-06-17 | XR_ITS ---
EXAMINATION: XR LUMBOSACRAL SPINE CLINICAL INFORMATION: Pain with bending over COMPARISON: May 17, 2021 TECHNIQUE: Three views of the lumbosacral spine. FINDINGS: There are 5 nonrib bearing lumbar vertebra. Pedicle screw and charo fixation with disc spaces are seen in place at the L5-S1 level. No acute fracture identified. No spondylolisthesis appreciated. Vena cava filter apex is seen at the level of the superior endplate of T2. Neural stimulator is seen in place. Pedicles appear intact. There is calcification of a nonaneurysmal abdominal aorta. XR/XR lumbar spine 2-3V IMPRESSION: No significant change from previous study of May 17, 2021 with no acute fracture appreciated.
[2021-06-17 12:50] VITALS: BP 118/80; PULSE 90; RESP 16; TEMP 35.9; O2SAT 98; BMI 25.2
--- NOTE | 2021-06-17 14:09 | ED_ITS ---
HPI - Back Pain/Injury General Chief Complaint: Back Pain/Injury Stated Complaint: back injury Time Seen by Provider: 06/17/21 14:09 Source: patient Mode of arrival: ambulatory Limitations: no limitations History of Present Illness HPI Narrative: 2 days ago patient bent over and she felt a pop in her back. Prior surgery, patient describes urinary incontinence but no fecal incontinence. MD elicited complaint: back pain Pertinent past history: prior back pain and back surgery Onset (ago): day(s) Timing: constant Severity: mild Location: lumbar spine Associated symptoms: denies other symptoms Related Data Home Medications Medication Instructions Recorded Confirmed blood-glucose meter (OneTouch 11/14/20 04/22/21 Verio Flex meter) lactulose 10 gram/15 mL oral PO 11/14/20 04/22/21 solution lancets (eyesFinderTouch UltraSoft 11/14/20 04/22/21 Lancets) omeprazole 20 mg capsule,delayed 1 cap PO DAILY 11/14/20 04/22/21 release rivaroxaban 20 mg tablet (Xarelto) 1 tab PO DAILY 11/14/20 04/22/21 rosuvastatin 10 mg tablet 1 tab PO BEDTIME 11/14/20 04/22/21 tiotropium bromide 18 mcg capsule 1 cap INHALATION DAILY 11/14/20 04/22/21 with inhalation device (Spiriva with HandiHaler) venlafaxine 150 mg 1 cap PO DAILY 11/14/20 04/22/21 capsule,extended release 24 hr ondansetron HCl 4 mg tablet mg PO 04/06/21 04/22/21 promethazine 12.5 mg tablet mg PO 04/22/21 04/22/21 pen needle, diabetic 32 gauge x 06/01/21 (BD Ultra-Fine Destiny Pen Needle) Previous Rx's Medication Instructions Recorded oxycodone 5 mg tablet 5 mg PO Q6H PRN #10 tab 11/16/20 docusate sodium 100 mg capsule 200 mg PO BID #112 cap 02/03/21 lubiprostone 8 mcg capsule 8 mcg PO BID #60 cap 02/03/21 (Amitiza) Pull-ups #100 ea 02/04/21 clotrimazole-betamethasone 1 1 appl TOPICAL BID PRN 7 Days #45 g 02/23/21 %-0.05 % topical cream fluconazole 150 mg tablet 150 mg PO ONCE PRN 1 Days #2 tab 02/23/21 (Diflucan) ondansetron HCl 8 mg tablet 4 mg PO BID PRN 30 Days #60 tab 03/25/21 insulin degludec 200 unit/mL (3 40 unit SUBCUT BEDTIME 90 Days #18 03/31/21 mL) subcutaneous pen (Tresiba ml FlexTouch U-200 insulin) Synthroid 200 mcg tablet 200 mcg PO DAILY 90 Days #90 tab NS 04/20/21 (levothyroxine) promethazine 12.5 mg tablet 12.5 mg PO BID PRN 7 Days #14 tab 04/22/21 levetiracetam 1,000 mg tablet 1,000 mg PO BID 30 Days #60 tab 04/27/21 midodrine 5 mg tablet 5 mg PO TID 90 Days #270 tab 04/27/21 ropinirole 2 mg tablet See Rx Instructions PO BID 90 Days 05/26/21 #45 tab insulin lispro 100 unit/mL 2 - 14 unit SUBCUT TID #15 ml 06/02/21 subcutaneous pen (Humalog KwikPen (U-100) Insulin) sennosides 8.6 mg-docusate sodium 1 tab-cap PO BEDTIME 90 Days #90 06/07/21 50 mg tablet (Senokot-S) tab cyclobenzaprine 10 mg tablet 10 mg PO TID #10 tab 06/17/21 Allergies Allergy/AdvReac Type Severity Reaction Status Date / Time buprenorphine [From Butrans] Allergy Unknown muscle Verified 04/22/21 08:05 spasm & Vomiting ciprofloxacin [From CIPRO] Allergy Unknown UNKNOWN Verified 04/22/21 08:05 clarithromycin [From Biaxin] Allergy Unknown unknown Verified 04/22/21 08:05 doxycycline Allergy Unknown Unknown Verified 04/22/21 08:05 metformin AdvReac Severe Verified 04/22/21 08:39 abdominal cramping vomiting diarrhea Review of Systems Constitutional: Constitutional: Reports no additional constitutional complaints Eyes: Eyes: Reports no additional eye complaints ENT: Denies dizziness Cardiovascular: Cardiovascular: Reports no additional cardiovascular complaints Respiratory: Respiratory: Reports as per HPI Gastrointestinal: Gastrointestinal: Reports no additional gastrointestinal complaints Genitourinary: Genitourinary: Reports no additional female genitourinary complaints Musculoskeletal: Musculoskeletal: Reports no additional musculoskeletal complaints Integumentary/Breasts: Skin/Breast: Denies rash Neurologic: Reports system reviewed and no additional complaints, except as documented, Denies dizziness and Denies Sensory deficit (Neuro) Psychiatric: Psychiatric: Denies anxiety PMFSH Past Medical History Medical History Depression Diabetes Gastroparesis Hyperlipidemia Nausea & vomiting Pancreatitis Pancreatitis, chronic TBI (traumatic brain injury) Type 2 diabetes mellitus with diabetic polyneuropathy Surgical History H/O breast surgery H/O thyroidectomy History of appendectomy Hx of section Hx of cholecystectomy Hx of tubal ligation Family History Family History Mother Diabetes Stroke Heart attack Dementia Father Stroke Heart attack Brother Diabetes Sister Diabetes Other Mental health disorder Substance use disorder Social History Social History Household Members: Significant Other Housing: Condominium Alcohol intake: former Patient Tobacco Use Status: Current everyday Tobacco user Tobacco use type: Cigarette Cigarettes Per Day: 6 Years Smoked: 30 Advance Directives: No Advance Directives Information Provided: Yes Current occupational status: unemployed Physical Exam Vital Signs: Vital Signs: Last Vital Signs Temp 96.7 F L 06/17/21 12:50 Pulse 90 06/17/21 12:50 Resp 16 06/17/21 12:50 BP 118/80 06/17/21 12:50 Pulse Ox 98 06/17/21 12:50 Body Mass Index 25.2 Neuro: Sensory Exam: No Sensory deficit (Neuro) Course Reevaluation(s) Reevaluation #1: no xray abnormalities, hardware in place, screws in place, will dc on flexeril Time: 16:35 MDM - Back Pain/Injury Lab Data Labs: Lab Results 06/17/21 Range/Units 16:07 Urine Color YELLOW Urine Appearance HAZY Urine pH 6.0 (5.0-8.0) Ur Specific Upper Tract <= 1.005 (1.005-1.025) Urine Protein TRACE (NEG-TRACE) MG/DL Urine Glucose (UA) >=1000 H (NEG) MG/DL Urine Ketones >=80 (NEG) MG/DL Urine Blood 1+ H (NEG) Urine Nitrite NEG (NEG) Ur Leukocyte Esterase NEG (NEG) Urine RBC 0-2 (0) /HPF Urine WBC 10-14 H (0-4) /HPF Urine WBC Clumps NOTED Ur Squamous Epith Cells 2+ /LPF Urine Bacteria TRACE /LPF Urine Yeast TRACE /HPF Imaging Data lumbar spine: Radiologist's impression: There are 5 nonrib bearing lumbar vertebra. Pedicle screw and charo fixation with disc spaces are seen in place at the L5-S1 level. No acute fracture identified. No spondylolisthesis appreciated. Vena cava filter apex is seen at the level of the superior endplate of T2. Neural stimulator is seen in place. Pedicles appear intact. There is calcification of a nonaneurysmal abdominal aorta. XR/XR lumbar spine 2-3V IMPRESSION: No significant change from previous study of May 17, 2021 with no acute fracture appreciated. Discharge Plan Discharge Clinical Impression: Lumbar radiculopathy Patient Disposition: Home, Self-Care Instructions: Lumbar Radiculopathy (ED) Prescriptions: New cyclobenzaprine 10 mg tablet 10 mg PO TID Qty: 10 RF: 0 No Action lubiprostone [Amitiza] 8 mcg capsule 8 mcg PO BID Qty: 60 RF: 5 docusate sodium 100 mg capsule 200 mg PO BID Qty: 112 RF: 5 ondansetron HCl 8 mg tablet 4 mg PO BID PRN (Reason: for nausea/vomiting) 30 Days Qty: 60 RF: 0 levothyroxine [Synthroid] 200 mcg tablet 200 mcg PO DAILY 90 Days Qty: 90 RF: 0 midodrine 5 mg tablet 5 mg PO TID 90 Days Qty: 270 RF: 0 levetiracetam 1,000 mg tablet 1,000 mg PO BID 30 Days Qty: 60 RF: 2 ropinirole 2 mg tablet See Rx Instructions PO BID 90 Days Qty: 45 RF: 3 (DME) pen needle, diabetic [BD Ultra-Fine Destiny Pen Needle] 32 gauge x 5/32 needle See Rx Instructions .ROUTE RF: 0 insulin lispro [Humalog KwikPen Insulin] 100 unit/mL insulin pen 2 - 14 unit subcut TID Qty: 15 RF: 0 sennosides-docusate sodium [Senokot-S] 8.6-50 mg tablet 1 tab-cap PO BEDTIME 90 Days Qty: 90 RF: 1 (DME) blood-glucose meter [OneTouch Verio Flex meter] [facility] MISCELLANEOUS RF: 0 venlafaxine 150 mg capsule,extended release 24hr 1 cap PO DAILY RF: 0 (DME) lancets [OneTouch UltraSoft Lancets] [facility] MISCELLANEOUS RF: 0 omeprazole 20 mg capsule,delayed release(DR/EC) 1 cap PO DAILY RF: 0 rosuvastatin 10 mg tablet 1 tab PO BEDTIME RF: 0 Spiriva with HandiHaler 18 mcg capsule, w/inhalation device 1 cap inhalation DAILY RF: 0 lactulose 10 gram/15 mL solution PO RF: 0 Xarelto 20 mg tablet 1 tab PO DAILY RF: 0 oxycodone 5 mg tablet 5 mg PO Q6H PRN (Reason: pain) Qty: 10 RF: 0 (DME) Pull-ups Small to medium See Rx Instructions .Route .MEDSUPPLY Qty: 100 RF: 0 promethazine 12.5 mg tablet PO RF: 0 promethazine 12.5 mg tablet 12.5 mg PO BID PRN (Reason: nausea and vomiting) 7 Days Qty: 14 RF: 0 clotrimazole-betamethasone 1-0.05 % cream 1 appl topical BID PRN (Reason: itching) 7 Days Qty: 45 RF: 1 fluconazole [Diflucan] 150 mg tablet 150 mg PO ONCE PRN (Reason: personal) 1 Days Qty: 2 RF: 1 Tresiba FlexTouch U-200 200 unit/mL (3 mL) insulin pen 40 unit subcut BEDTIME 90 Days Qty: 18 RF: 1 ondansetron HCl 4 mg tablet PO RF: 0 Referrals: Eulalia Mancia MD [Primary Care Provider] - 5 days
[2021-06-17] MEDS: Ketorolac Tromethamine 60 MG/2 ML VIAL IM (14:41)
[2021-06-17 16:15] LABS: Appearance Urine HAZY; Color Urine YELLOW; Glucose Urine UA >=1000 MG/DL (NEG); Leukocyte Esterase Urine NEG (NEG); Nitrite Urine NEG (NEG); Specific Gravity - Urine <= 1.005 (1.005-1.025); UACC Culture Trigger NO; Urine Blood 1+ (NEG); Urine Ketones >=80 MG/DL (NEG); Urine Protein TRACE MG/DL (NEG-TRACE)
[2021-06-17 16:30] LABS: Bacteria Urine TRACE /LPF; RBC Urine 0-2 /HPF (0); Squamous Epithelial Cell Urine 2+ /LPF; UACC CULT YES; WBC Clumps Urine NOTED
--- NOTE | 2021-06-17 17:23 | MHC.CM.ED ---
CM met with patient at request of Eduardo DURHAM. Pt has a walker and lives with S.O., although she states he is evicting her. States he doesn't want to care for her because she is too sick. Pt Admits to falls, but said she has seizures. Pt asked directly if she is safe to go home. Pt states she is safe, she is just worried about where she will live and that she needs to pack her belongings. CM asked the patient several times if she was safe at home. Pt continues to state she is. Pt aware that she can return to the ED if she feels unsafe at home. Pt states her S.O. is picking her up at 6pm. HERMINIO Clark notified of above conversation.
--- NOTE | 2021-06-17 17:50 | PC.NURSE ---
pt requesting to be moved by wheelchair to just outside er entrance to await ride. pt sts she feels safe doing so.
== END 2021-06-17 17:54 | disposition home or self-care (01) ==
PROVIDERS: Emergency Provider Emergency Medicine; PCP Internal Medicine
DX: M54.16 Radiculopathy, lumbar region (principal); F17.210 Nicotine dependence, cigarettes, uncomplicated; Z71.6 Tobacco abuse counseling; Z79.899 Other long term (current) drug therapy
CPT/HCPCS: 72100; 81001; 87086; 96372; 99284; J1885

== ENCOUNTER → 2021-10-31 11:32 | Outpatient (BNVA) | payer MEDICARE, MEDICAID, SELFPAY | PROVIDERS: PCP Internal Medicine; Referring Provider Internal Medicine; Visit Provider Internal Medicine Gastroenterology | DX: R13.10 Dysphagia, unspecified (principal); R19.7 Diarrhea, unspecified; Z86.718 Personal history of other venous thrombosis and embolism | CPT/HCPCS: 99212 ==

== ENCOUNTER 2022-07-20 17:57 | Inpatient (IN) | payer MEDICARE, MEDICAID, SELFPAY ==
--- NOTE | ~2022-07-20 | CT_ITS ---
EXAMINATION: CT HEAD WITHOUT CONTRAST (STROKE PROTOCOL) CLINICAL INFORMATION: Stroke protocol. Weakness. Altered mental status. COMPARISON: 11/14/2020 TECHNIQUE: Multidetector volumetric imaging of the head was performed without intravenous contrast material. This CT examination was performed using dose optimization techniques as appropriate, variously including the following: *Automated exposure control *Adjustment of mA and/or kV according to patient size (this includes techniques or standardized protocols for targeted exams where dose is matched to indication/reason for exam; i.e. extremities or head) *Use of iterative reconstruction technique Dose: 777 mGy-cm FINDINGS: There is no evidence of acute intracranial hemorrhage or territorial infarction. No abnormal mass-effect or midline shift is seen. Vee to white matter differentiation is well preserved. No extra axial fluid collections. The ventricles are normal in size and configuration. Multiple areas of hypoattenuation in the subcortical and periventricular white matter are most consistent with chronic microangiopathic changes. Calcific atherosclerosis is present within the cavernous segments of the internal carotid arteries. The soft tissues and osseous structures are normal. The sinuses and mastoid air cells are clear. CT/CT head for stroke IMPRESSION: 1. No acute intracranial pathology. 2. Moderate chronic white matter microangiopathy. This critical result was discussed with Neno Echevarria at 6:25 PM on 07/20/2022. It was ascertained that the content and urgency of the report was understood at the time of direct communication.
--- NOTE | ~2022-07-20 | CT_ITS ---
EXAMINATION: CT CHEST WITH CONTRAST CT ABDOMEN AND PELVIS WITH CONTRAST CLINICAL INFORMATION: Altered mental status, vomiting, fever . COMPARISON: 07/28/2020. TECHNIQUE: Multidetector volumetric imaging was performed from the thoracic inlet through the pubic symphysis following administration of intravenous contrast material. A total of 85 mL Omnipaque 350 was administered intravenously. Sagittal and coronal images were reformatted. This CT examination was performed using dose optimization techniques as appropriate, variously including the following: *Automated exposure control *Adjustment of mA and/or kV according to patient size (this includes techniques or standardized protocols for targeted exams where dose is matched to indication/reason for exam; i.e. extremities or head) *Use of iterative reconstruction technique DOSE: 3001 mGy-cm FINDINGS: -CHEST- LUNG: Mild posterior dependent atelectasis in both lungs. No consolidation. Central airways are clear. No pulmonary nodules. MEDIASTINUM: Calcific atherosclerosis in the coronary arteries. Central vascular structures are unremarkable. No mediastinal or hilar adenopathy. There is circumferential wall thickening in the distal esophagus. PERICARDIUM/PLEURA: No significant effusion. No pleural mass or thickening. CHEST WALL/AXILLA: Unremarkable. -ABDOMEN/PELVIS- LIVER, GALLBLADDER, BILIARY TREE: The liver is normal in size, shape, and attenuation. No focal hepatic lesion or biliary ductal dilatation is present. Gallbladder surgically absent. PANCREAS: Normal; no mass or surrounding fluid. SPLEEN: Normal size. No focal lesion. ADRENAL GLANDS: Normal; no mass. KIDNEYS AND URETERS: There is hyperenhancement of the right urothelium at the right renal pelvis and ureter with surrounding fat stranding. Bladder wall is thickened with urothelial hyperemia mild right hydroureteronephrosis. Kidneys normal in size and contour. Perinephric stranding is more pronounced on the right than the left. No focal lesions. No calculi. BLADDER: Bladder wall is thickened with mural stratification due to urothelial hyperemia, concerning for cystitis. GASTROINTESTINAL TRACT: Moderate bilateral stool in the colon. Stomach, small bowel, and colon are normal in caliber. No bowel wall thickening or surrounding inflammatory changes. Appendix is likely surgically absent.. No intraperitoneal free fluid or free air. ABDOMINAL WALL: No significant hernia is appreciated. VASCULATURE: Atherosclerotic calcifications are present in the abdominal aorta and iliac arteries. No aneurysmal dilatation. IVC filter is in place in infrarenal position. LYMPH NODES: No lymphadenopathy. . PELVIC VISCERA: The uterus and adnexa are unremarkable. OSSEUS STRUCTURES: Bones are osteopenic. Chronic superior endplate compression deformity at T11 is unchanged. No new fractures. Solid osseous fusion at L5-S1 with pedicle screws and interbody cage. Mild multilevel degenerative disc disease and prominent facet arthropathy at L4-L5. Mild osteoarthritis in the hips and SI joints. CT/CT abdomen pelvis w IV con IMPRESSION: * Bladder wall thickening and hyperenhancement with associated urothelial hyperenhancement in the right ureter and renal pelvis, most concerning for cystitis with an ascending right urinary tract infection. Recommend correlation with urinalysis. * Circumferential wall thickening in the distal esophagus, potentially due to esophagitis. * Consider follow-up endoscopy for further assessment on a nonemergent basis. * No acute pulmonary findings. * Moderate stool burden in the colon.
--- NOTE | ~2022-07-20 | CT_ITS ---
EXAMINATION: CT ANGIOGRAM NECK WITH CONTRAST CT ANGIOGRAM BRAIN WITH CONTRAST CLINICAL INFORMATION: Weakness. COMPARISON: Head CT 07/20/2022.. TECHNIQUE: Test bolus sequences followed by intravenous administration 100 mL of Omnipaque 350. Helical imaging was performed in the axial plane from the thoracic inlet to the skull vertex. Delayed postcontrast images were also obtained. The data was processed at the optometric technologist workstation for generation of MIP sequences. Angled MIPs and volume rendered reformatted images were also generated at an offline 3D workstation. Stenoses are assessed in accordance with NASCET criteria unless otherwise indicated. This CT examination was performed using dose optimization techniques as appropriate, variously including the following: *Automated exposure control *Adjustment of mA and/or kV according to patient size (this includes techniques or standardized protocols for targeted exams where dose is matched to indication/reason for exam; i.e. extremities or head) *Use of iterative reconstruction technique DLP: 3001 mGy-cm FINDINGS: CT head: There is motion artifact limiting evaluation. There is no intracranial hemorrhage, extra-axial collection, mass effect, or territorial infarction. Patchy hypoattenuation is seen within the cerebral white matter, typical of chronic microangiopathy. The ventricles and sulci are normal in size and configuration without hydrocephalus. The extracranial structures are within normal limits. Neck CTA: The aortic arch and great vessel origins are patent. Atheromatous changes are seen at both carotid bifurcations without significant stenosis of either proximal internal carotid artery. The bilateral vertebral arteries are patent. Head CTA: The intradural vertebral arteries and basilar artery are patent. Both speech/language therapist are patent. Intracranial ICAs are patent. The ACAs and MCAs are patent with symmetric collaterals. The dural venous sinuses are patent. Non-vascular findings: The cervical soft tissues are within normal limits. No consolidation is seen within the lung. Multilevel degenerative changes are seen in the spine. Mild chronic appearing compression fractures are seen including at C7, T1, T3, and T4. CT/CT angio head neck stroke IMPRESSION: CT HEAD: No intracranial hemorrhage or large acute infarction. Background changes of chronic microangiopathy. CTA NECK: No hemodynamically significant stenosis in the major arteries of the neck. CTA HEAD: No large vessel occlusion or significant stenosis within the intracranial circulation. This critical result was discussed with MATT Jin on 07/20/2022 6:53 PM, and it was ascertained that the content and urgency of the report was understood at the time of direct communication.
[2022-07-20] MEDS: ondansetron HCL 4 MG/2 ML VIAL IVPUSH (18:06)
[2022-07-20 18:10] LABS: Glucose, Whole Blood 257 mg/dL (60-115)
--- NOTE | 2022-07-20 18:15 | PC.NURSE ---
pt is currently in ct scan, pt was vomiting prior to going to ct and given zofran pt is currently slow to respond questions, very warm to the touch, visible right sided facial droop and the right sided arm appears to have weakness-pt unable to to pickle processor her right hand at this time, moving the left sided without any difficulties, speech clear,
[2022-07-20 18:18] VITALS: BP 143/51; BP 242/110; PULSE 134; PULSE 170; RESP 24; TEMP 40.2; BMI 31.4
--- NOTE | 2022-07-20 18:19 | ED_ITS ---
HPI - General Adult General Chief complaint: Altered Mental Status Stated complaint: AMS Source: patient and EMS Mode of arrival: EMS Limitations: altered mental status and other (Poor historian) History of Present Illness HPI narrative: 62-year-old female history of hypothyroidism, anxiety, hypotension, memory def icit, TBI, diabetic neuropathy, urinary incontinence, diabetes presenting to the emergency department from [facility] with altered mental status, fever. According to EMS [facility] reported that patient was started on antibiotics for urinary frequency yesterday however unsure if she had a UTI. Patient unable to answer any of my questions however according to EMS she reported that she was having dizziness, vision changes. When patient arrives into the department patient is noted to be vomiting dark brown vomitus, she has some horizontal nystagmus noted. Unable to obtain history or review of systems from patient. Unable to assess NIH stroke scale as patient is unable to follow commands. However at this time sepsis protocol and stroke protocol initiated. LKWT yesterday Related Data Home Medications Medication Instructions Recorded Confirmed blood-glucose meter (OneTouch 11/14/20 04/22/21 Verio Flex Meter) lactulose 10 gram/15 mL oral PO 11/14/20 04/22/21 solution lancets (OneTouch UltraSoft 11/14/20 04/22/21 Lancets) omeprazole 20 mg capsule,delayed 1 cap PO DAILY 11/14/20 04/22/21 release rivaroxaban 20 mg tablet (Xarelto) 1 tab PO DAILY 11/14/20 04/22/21 rosuvastatin 10 mg tablet 1 tab PO BEDTIME 11/14/20 04/22/21 tiotropium bromide 18 mcg capsule 1 cap inhalation DAILY 11/14/20 04/22/21 with inhalation device (Spiriva with HandiHaler) venlafaxine 150 mg 1 cap PO DAILY 11/14/20 04/22/21 capsule,extended release 24 hr ondansetron HCl 4 mg tablet mg PO 04/06/21 04/22/21 promethazine 12.5 mg tablet mg PO 04/22/21 04/22/21 pen needle, diabetic 32 gauge x 06/01/21 (BD Ultra-Fine Destiny Pen Needle) gabapentin 100 mg capsule 100 mg PO TID 10/31/21 levothyroxine 112 mcg tablet 112 mcg PO DAILY 03/07/22 metformin 500 mg tablet 500 mg PO DAILY 10/31/21 metoclopramide HCl 10 mg tablet 10 mg PO BEDTIME 10/31/21 metoclopramide HCl 10 mg tablet 10 mg PO QIDACHS 10/31/21 tramadol 50 mg tablet 50 mg PO Q6H PRN 10/31/21 venlafaxine 150 mg tablet,extended 150 mg PO DAILY 10/31/21 release 24 hr Previous Rx's Medication Instructions Recorded oxycodone 5 mg tablet 5 mg PO Q6H PRN pain #10 tabs 11/16/20 docusate sodium 100 mg capsule 200 mg PO BID #112 caps 02/03/21 lubiprostone 8 mcg capsule 8 mcg PO BID #60 caps 02/03/21 (Amitiza) Pull-ups #100 ea 02/04/21 clotrimazole-betamethasone 1 1 appl topical BID PRN itching 7 02/23/21 %-0.05 % topical cream days #45 grams fluconazole 150 mg tablet 150 mg PO ONCE PRN personal 1 day 02/23/21 (Diflucan) #2 tabs ondansetron HCl 8 mg tablet 4 mg PO BID PRN for 03/25/21 nausea/vomiting 30 days #60 tabs insulin degludec 200 unit/mL (3 40 unit (0.2 mL) subcut BEDTIME 90 03/31/21 mL) subcutaneous pen (Tresiba days #18 mL FlexTouch U-200 insulin) Synthroid 200 mcg tablet 200 mcg PO DAILY 90 days #90 tabs 04/20/21 (levothyroxine) promethazine 12.5 mg tablet 12.5 mg PO BID PRN nausea and 04/22/21 vomiting 7 days #14 tabs levetiracetam 1,000 mg tablet 1,000 mg PO BID 30 days #60 tabs 04/27/21 midodrine 5 mg tablet 5 mg PO TID 90 days #270 tabs 04/27/21 ropinirole 2 mg tablet See Rx Instructions PO BID 90 days 05/26/21 #45 tabs insulin lispro 100 unit/mL 2 - 14 unit (0.02 - 0.14 mL) 06/02/21 subcutaneous pen (Humalog KwikPen subcut TID #15 mL (U-100) Insulin) sennosides 8.6 mg-docusate sodium 1 tab-cap PO BEDTIME 90 days #90 06/07/21 50 mg tablet (Senokot-S) tabs cyclobenzaprine 10 mg tablet 10 mg PO TID #10 tabs 06/17/21 Allergies Allergy/AdvReac Type Severity Reaction Status Date / Time buprenorphine [From Butrans] Allergy Unknown muscle Verified 10/31/21 11:41 spasm & Vomiting ciprofloxacin [From CIPRO] Allergy Unknown UNKNOWN Verified 10/31/21 11:41 clarithromycin [From Biaxin] Allergy Unknown unknown Verified 10/31/21 11:41 doxycycline Allergy Unknown Unknown Verified 10/31/21 11:41 metformin AdvReac Severe Verified 10/31/21 11:41 abdominal cramping vomiting diarrhea Review of Systems Review of Systems: Yes Unobtainable due to mental status PMFSH Past Medical History Attestation statement: The following information was validated with the patient. Source: old records reviewed and nursing notes reviewed Medical History Depression Diabetes Gastroparesis Hyperlipidemia Nausea & vomiting Pancreatitis Pancreatitis, chronic TBI (traumatic brain injury) Type 2 diabetes mellitus with diabetic polyneuropathy Surgical History H/O breast surgery H/O thyroidectomy History of appendectomy History of esophagogastroduodenoscopy (EGD) Hx of section Hx of cholecystectomy Hx of colonoscopy Hx of tubal ligation Family History Family History Mother Diabetes Stroke Heart attack Dementia Father Stroke Heart attack Brother Diabetes Sister Diabetes Other Mental health disorder Substance use disorder Social History Social History Household Members: Significant Other Housing: Condominium Alcohol intake: never Patient Tobacco Use Status: Current everyday Tobacco user Tobacco use type: Cigarette Cigarettes Per Day: 6 Years Smoked: 30 Smoked in Last 30 Days: Yes Use of substances other than those prescribed or required for medical reasons: No Advance Directives: No Advance Directives Information Provided: No Current occupational status: unemployed Physical Exam ED Vital Signs: Vital Signs - 24 hr 07/20/22 18:18 07/20/22 19:11 07/20/22 19:29 Temperature 104.4 F H 102.7 F H Pulse Rate 134 H 117 H 113 H Respiratory Rate 24 H 22 H 22 H Blood Pressure 143/51 H 131/66 121/60 Pulse Oximetry 89 L 93 Oxygen Delivery Method Room Air Nasal Cannula Oxygen Flow Rate 2 BMI result Body Mass Index 31.4 Patient noted to be tachycardic, febrile. Appearance: Awake. Toxic appearing. Head: Normocephalic, atraumatic, no step-offs or deformities + right-sided facial droop Eyes: Pupils equal, round and reactive to light.? Neck: Normal inspection.? Neck supple.? CVS: Normal heart rate and rhythm.? Pulses normal.? Respiratory: No respiratory distress.? Breath sounds normal.? Abdomen: Soft and nontender.? Skin: Skin warm and dry.? Normal skin color.? Normal skin turgor.? Extremities: No lower extremity edema.? No calf ttp. Global weakness Neuro: Patient awake, not following commands, unable to participate neurological examination. Moving all extremities however global weakness Course Reevaluation(s) Reevaluation #1: Received a call from [place]. Head CT negative for stroke. Pending CTA. Time: 18:25 Reevaluation #2: CTA with no acute findings. CBC with slightly elevated white blood cells. Chemistry with no acute electrolyte abnormalities requiring intervention. Lactic acid 2.2, patient receiving normal saline. Patient is noted to have a troponin of 7, EKG nonischemic unlikely ACS. BNP within normal limits. COVID negative. Urine grossly infected, CT of the abdomen and pelvis concerning pyelo. Patient was given ceftriaxone. Time: 20:12 Reevaluation #3: Patient will be admitted to the hospitalist team. Medications Administered Discontinued Medications Generic Name Dose Route Start Last Admin Trade Name Freq PRN Reason Stop Dose Admin Acetaminophen 650 mg 07/20/22 18:08 07/20/22 18:49 Acetaminophen Supp 650 Mg Supp.Rect MO 07/20/22 18:09 650 mg ONCE ONE Administration Ceftriaxone Sodium 1 gm/ 50 mls @ 100 mls/hr 07/20/22 18:26 07/20/22 19:47 Sodium Chloride IV 07/20/22 18:55 Infused ONCE ONE Infusion Sodium Chloride 2,730 mls @ 2,730 mls/hr 07/20/22 18:27 07/20/22 18:57 Ns 30 ml/kg infuse over 1 hr (2730 ml) 07/20/22 19:26 2,730 mls/hr IV Administration .Q1H STA Iohexol 100 ml 07/20/22 18:33 07/20/22 18:33 Iohexol 350 Mg/Ml 100 Ml Infus..Btl IV 07/20/22 18:34 85 ml ONCE ONE Administration Ondansetron HCl 4 mg 07/20/22 18:04 07/20/22 18:06 Ondansetron Hcl 4 Mg/2 Ml Vial IVPUSH 07/20/22 18:05 4 mg ONCE ONE Administration Medical Decision Making MDM Narrative Medical decision making narrative: 1800 62-year-old female presents from [facility] with altered mental status, fever, vomiting on arrival noted to have a right-sided facial droop. According to EMS patient was recently started on antibiotics yesterday for urinary frequency however unclear if she had a UTI. Patient unable to provide history or answer review of systems. Physical examination with global weakness right-sided facial droop, patient actively vomiting. Appears toxic. Tachycardic and febrile. Concerns for possible UTI. Also concerns for stroke, posterior stroke. D ifficult to assess cerebellar function on this patient as she is not following commands. Due to the holiday MRI is not here in the hospital. At this time will initiate stroke protocol and sepsis protocol. Sepsis focused exam was done upon arrived Medical Records Medical records reviewed: Yes I reviewed the patient's medical records. Lab Data Lab results reviewed: Yes I reviewed the patient's lab results. Result diagrams: 07/20/22 18:39 07/20/22 18:39 Labs: Lab Results 07/20/22 07/20/22 07/20/22 Range/Units 18:06 18:39 18:39 WBC 12.4 H (4.8-10.8) X10*3/uL RBC 4.40 (4.20-5.50) X10*6/uL Hgb 12.2 (12.0-16.0) g/dl Hct 37.2 (37.0-47.0) % MCV 84.5 (80.0-98.0) fL MCH 27.7 (27.0-33.0) pg MCHC 32.8 (31.0-35.0) g/dl RDW 13.2 (11.0-16.0) % Plt Count 212 (160-400) X10*3/uL MPV 9.9 (9.4-12.3) fL Immature Gran % (Auto) 0.4 (0.0-0.4) % Neut % (Auto) 91.7 H (45-73) % Lymph % (Auto) 3.6 L (20-40) % [place] % (Auto) 4.0 (2-11) % Eos % (Auto) 0.1 (0-4) % Baso % (Auto) 0.2 (0-2) % Lymph # (Auto) 0.4 L (1.2-4.9) X10*3/uL [place] # (Auto) 0.5 (0.1-1.2) X10*3/uL Eos # (Auto) 0.0 (0.0-0.4) X10*3/uL Baso # (Auto) 0.0 (0.0-0.2) X10*3/uL Abs Immat Gran (auto) 0.05 H (0.00-0.03) X10*3/uL Absolute Neuts (auto) 11.4 H (2.0-8.3) x10*3/uL Absolute Nucleated RBC 0.000 (0.0-0.012) X10*3/uL Nucleated RBC % (auto) 0.0 (0.0-0.2) /100WBC Smear Tech's Comments VERIFIED Whole Blood PT (11.1-13.5) sec Whole Blood INR (0.9-1.1) Sodium 134 L (135-145) mmol/L Potassium 4.0 (3.3-5.1) mmol/L Chloride 102 (96-108) mmol/L Carbon Dioxide 20 L (22-29) mmol/L Anion Gap 16 (12-20) BUN 24 H (9-16) mg/dL Creatinine 1.05 (0.5-1.4) mg/dL Estim Creat Clear Calc 63.5 Estimated GFR 53 POC Glucose 257 H (60-115) mg/dL Random Glucose 211 H (60-115) mg/dL Lactic Acid (0.5-2.0) mmol/L Calcium 8.6 D (8.4-10.2) mg/dL Magnesium 1.6 (1.6-2.6) mg/dL Total Bilirubin 0.6 (0.0-1.0) mg/dL AST 18 (5-31) U/L ALT 28 (0-31) U/L Alkaline Phosphatase 86 (39-117) U/L Troponin I High Sens (<3.5-17.0) ng/L B-Natriuretic Peptide (<100) pg/mL Total Protein 5.7 L (6.5-8.0) g/dL Albumin 3.3 L (3.5-5.0) g/dL Urine Color Urine Appearance Urine pH (5.0-9.0) Ur Specific [place] (1.005-1.025) Urine Protein (Neg-Trace) mg/dL Urine Glucose (UA) (Negative) mg/dL Urine Ketones (Negative) mg/dL Urine Blood (Negative) Urine Nitrite (Negative) Ur Leukocyte Esterase (Negative) Urine RBC (0-2) /HPF Urine WBC (0-5) /HPF Ur Squamous Epith Cells (0-2) /HPF Urine Bacteria (None Seen) Hyaline Casts (0-2) /LPF Urine Opiates Screen (Not Detect) Urine Fentanyl Screen (Not Detect) Ur Barbiturates Screen (Not Detect) Ur Phencyclidine Scrn (Not Detect) Ur Amphetamines Screen (Not Detect) U Benzodiazepines Scrn (Not Detect) Urine Cocaine Screen (Not Detect) U Marijuana (THC) Screen (Not Detect) COVID-19 ([facility]) (Negative) COVID-19 Clin Com 07/20/22 07/20/22 07/20/22 Range/Units 18:39 18:39 18:39 WBC (4.8-10.8) X10*3/uL RBC (4.20-5.50) X10*6/uL Hgb (12.0-16.0) g/dl Hct (37.0-47.0) % MCV (80.0-98.0) fL MCH (27.0-33.0) pg MCHC (31.0-35.0) g/dl RDW (11.0-16.0) % Plt Count (160-400) X10*3/uL MPV (9.4-12.3) fL Immature Gran % (Auto) (0.0-0.4) % Neut % (Auto) (45-73) % Lymph % (Auto) (20-40) % [place] % (Auto) (2-11) % Eos % (Auto) (0-4) % Baso % (Auto) (0-2) % Lymph # (Auto) (1.2-4.9) X10*3/uL [place] # (Auto) (0.1-1.2) X10*3/uL Eos # (Auto) (0.0-0.4) X10*3/uL Baso # (Auto) (0.0-0.2) X10*3/uL Abs Immat Gran (auto) (0.00-0.03) X10*3/uL Absolute Neuts (auto) (2.0-8.3) x10*3/uL Absolute Nucleated RBC (0.0-0.012) X10*3/uL Nucleated RBC % (auto) (0.0-0.2) /100WBC Smear Tech's Comments Whole Blood PT (11.1-13.5) sec Whole Blood INR (0.9-1.1) Sodium (135-145) mmol/L Potassium (3.3-5.1) mmol/L Chloride (96-108) mmol/L Carbon Dioxide (22-29) mmol/L Anion Gap (12-20) BUN (9-16) mg/dL Creatinine (0.5-1.4) mg/dL Estim Creat Clear Calc Estimated GFR POC Glucose (60-115) mg/dL Random Glucose (60-115) mg/dL Lactic Acid 2.2 H* (0.5-2.0) mmol/L Calcium (8.4-10.2) mg/dL Magnesium (1.6-2.6) mg/dL Total Bilirubin (0.0-1.0) mg/dL AST (5-31) U/L ALT (0-31) U/L Alkaline Phosphatase (39-117) U/L Troponin I High Sens 7.0 (<3.5-17.0) ng/L B-Natriuretic Peptide 37 (<100) pg/mL Total Protein (6.5-8.0) g/dL Albumin (3.5-5.0) g/dL Urine Color Urine Appearance Urine pH (5.0-9.0) Ur Specific [place] (1.005-1.025) Urine Protein (Neg-Trace) mg/dL Urine Glucose (UA) (Negative) mg/dL Urine Ketones (Negative) mg/dL Urine Blood (Negative) Urine Nitrite (Negative) Ur Leukocyte Esterase (Negative) Urine RBC (0-2) /HPF Urine WBC (0-5) /HPF Ur Squamous Epith Cells (0-2) /HPF Urine Bacteria (None Seen) Hyaline Casts (0-2) /LPF Urine Opiates Screen (Not Detect) Urine Fentanyl Screen (Not Detect) Ur Barbiturates Screen (Not Detect) Ur Phencyclidine Scrn (Not Detect) Ur Amphetamines Screen (Not Detect) U Benzodiazepines Scrn (Not Detect) Urine Cocaine Screen (Not Detect) U Marijuana (THC) Screen (Not Detect) COVID-19 ([facility]) (Negative) COVID-19 Clin Com 07/20/22 07/20/22 07/20/22 Range/Units 18:49 19:08 19:08 WBC (4.8-10.8) X10*3/uL RBC (4.20-5.50) X10*6/uL Hgb (12.0-16.0) g/dl Hct (37.0-47.0) % MCV (80.0-98.0) fL MCH (27.0-33.0) pg MCHC (31.0-35.0) g/dl RDW (11.0-16.0) % Plt Count (160-400) X10*3/uL MPV (9.4-12.3) fL Immature Gran % (Auto) (0.0-0.4) % Neut % (Auto) (45-73) % Lymph % (Auto) (20-40) % [place] % (Auto) (2-11) % Eos % (Auto) (0-4) % Baso % (Auto) (0-2) % Lymph # (Auto) (1.2-4.9) X10*3/uL [place] # (Auto) (0.1-1.2) X10*3/uL Eos # (Auto) (0.0-0.4) X10*3/uL Baso # (Auto) (0.0-0.2) X10*3/uL Abs Immat Gran (auto) (0.00-0.03) X10*3/uL Absolute Neuts (auto) (2.0-8.3) x10*3/uL Absolute Nucleated RBC (0.0-0.012) X10*3/uL Nucleated RBC % (auto) (0.0-0.2) /100WBC Smear Tech's Comments Whole Blood PT 14.3 H (11.1-13.5) sec Whole Blood INR 1.2 H (0.9-1.1) Sodium (135-145) mmol/L Potassium (3.3-5.1) mmol/L Chloride (96-108) mmol/L Carbon Dioxide (22-29) mmol/L Anion Gap (12-20) BUN (9-16) mg/dL Creatinine (0.5-1.4) mg/dL Estim Creat Clear Calc Estimated GFR POC Glucose (60-115) mg/dL Random Glucose (60-115) mg/dL Lactic Acid (0.5-2.0) mmol/L Calcium (8.4-10.2) mg/dL Magnesium (1.6-2.6) mg/dL Total Bilirubin (0.0-1.0) mg/dL AST (5-31) U/L ALT (0-31) U/L Alkaline Phosphatase (39-117) U/L Troponin I High Sens (<3.5-17.0) ng/L B-Natriuretic Peptide (<100) pg/mL Total Protein (6.5-8.0) g/dL Albumin (3.5-5.0) g/dL Urine Color Yellow Urine Appearance Cloudy Urine pH 6.0 (5.0-9.0) Ur Specific [place] 1.010 (1.005-1.025) Urine Protein 100 (2+) H (Neg-Trace) mg/dL Urine Glucose (UA) 500 H (Negative) mg/dL Urine Ketones Trace (Negative) mg/dL Urine Blood Large (3+) H (Negative) Urine Nitrite Positive H (Negative) Ur Leukocyte Esterase Moderate (2+) H (Negative) Urine RBC 6-10 H (0-2) /HPF Urine WBC >50 (0-5) /HPF Ur Squamous Epith Cells 0-2 (0-2) /HPF Urine Bacteria 2+ (None Seen) Hyaline Casts 0-2 (0-2) /LPF Urine Opiates Screen (Not Detect) Urine Fentanyl Screen (Not Detect) Ur Barbiturates Screen (Not Detect) Ur Phencyclidine Scrn (Not Detect) Ur Amphetamines Screen (Not Detect) U Benzodiazepines Scrn (Not Detect) Urine Cocaine Screen (Not Detect) U Marijuana (THC) Screen (Not Detect) COVID-19 ([facility]) Negative (Negative) COVID-19 Clin Com See Note 07/20/22 Range/Units 19:08 WBC (4.8-10.8) X10*3/uL RBC (4.20-5.50) X10*6/uL Hgb (12.0-16.0) g/dl Hct (37.0-47.0) % MCV (80.0-98.0) fL MCH (27.0-33.0) pg MCHC (31.0-35.0) g/dl RDW (11.0-16.0) % Plt Count (160-400) X10*3/uL MPV (9.4-12.3) fL Immature Gran % (Auto) (0.0-0.4) % Neut % (Auto) (45-73) % Lymph % (Auto) (20-40) % [place] % (Auto) (2-11) % Eos % (Auto) (0-4) % Baso % (Auto) (0-2) % Lymph # (Auto) (1.2-4.9) X10*3/uL [place] # (Auto) (0.1-1.2) X10*3/uL Eos # (Auto) (0.0-0.4) X10*3/uL Baso # (Auto) (0.0-0.2) X10*3/uL Abs Immat Gran (auto) (0.00-0.03) X10*3/uL Absolute Neuts (auto) (2.0-8.3) x10*3/uL Absolute Nucleated RBC (0.0-0.012) X10*3/uL Nucleated RBC % (auto) (0.0-0.2) /100WBC Smear Tech's Comments Whole Blood PT (11.1-13.5) sec Whole Blood INR (0.9-1.1) Sodium (135-145) mmol/L Potassium (3.3-5.1) mmol/L Chloride (96-108) mmol/L Carbon Dioxide (22-29) mmol/L Anion Gap (12-20) BUN (9-16) mg/dL Creatinine (0.5-1.4) mg/dL Estim Creat Clear Calc Estimated GFR POC Glucose (60-115) mg/dL Random Glucose (60-115) mg/dL Lactic Acid (0.5-2.0) mmol/L Calcium (8.4-10.2) mg/dL Magnesium (1.6-2.6) mg/dL Total Bilirubin (0.0-1.0) mg/dL AST (5-31) U/L ALT (0-31) U/L Alkaline Phosphatase (39-117) U/L Troponin I High Sens (<3.5-17.0) ng/L B-Natriuretic Peptide (<100) pg/mL Total Protein (6.5-8.0) g/dL Albumin (3.5-5.0) g/dL Urine Color Urine Appearance Urine pH (5.0-9.0) Ur Specific [place] (1.005-1.025) Urine Protein (Neg-Trace) mg/dL Urine Glucose (UA) (Negative) mg/dL Urine Ketones (Negative) mg/dL Urine Blood (Negative) Urine Nitrite (Negative) Ur Leukocyte Esterase (Negative) Urine RBC (0-2) /HPF Urine WBC (0-5) /HPF Ur Squamous Epith Cells (0-2) /HPF Urine Bacteria (None Seen) Hyaline Casts (0-2) /LPF Urine Opiates Screen Not Detected (Not Detect) Urine Fentanyl Screen Not Detected (Not Detect) Ur Barbiturates Screen Not Detected (Not Detect) Ur Phencyclidine Scrn Not Detected (Not Detect) Ur Amphetamines Screen Not Detected (Not Detect) U Benzodiazepines Scrn Not Detected (Not Detect) Urine Cocaine Screen Not Detected (Not Detect) U Marijuana (THC) Screen Not Detected (Not Detect) COVID-19 ([facility]) (Negative) COVID-19 Clin Com Critical Care Time Critical Care Time Critical Care Time: Yes Total Critical Care Time: 35 Attestation: I attest to this time spent taking care of the patient, obtaining history, physical, reviewing labs, imaging, speaking to my attending, speaking to specialist. Discharge Plan Discharge Clinical Impression: Altered mental status, Fever, Nausea & vomiting, Pyelonephritis Patient Disposition: Admitted As Inpatient
[2022-07-20] MEDS: iohexoL 350 MG/ML 100 ML INFUS..BTL IV (18:33)
[2022-07-20 18:48] LABS: Basophils Percent Auto 0.2 % (0-2); Eosinophils Percent Auto 0.1 % (0-4); Hematocrit 37.2 % (37.0-47.0); Hemoglobin 12.2 g/dl (12.0-16.0); Imm Gran Abs Auto 0.05 X10*3/uL (0.00-0.03); Imm Gran Pct Auto 0.4 % (0.0-0.4); Lymphocytes Absolute Auto 0.4 X10*3/uL (1.2-4.9); Lymphocytes Percent Auto 3.6 % (20-40); MANUAL DIFF FLAG SCAN; Mean Corpuscular HGB Conc 32.8 g/dl (31.0-35.0); Mean Corpuscular Hemoglobin 27.7 pg (27.0-33.0); Mean Corpuscular Volume 84.5 fL (80.0-98.0); Mean Platelet Volume 9.9 fL (9.4-12.3); Monocytes Absolute Auto 0.5 X10*3/uL (0.1-1.2); Neutrophils Absolute Auto 11.4 x10*3/uL (2.0-8.3); Neutrophils Percent Auto 91.7 % (45-73); Platelet Count 212 X10*3/uL (160-400); Red Cell Distribution Width 13.2 % (11.0-16.0); SCAN SMEAR FLAG 1; White Blood Count 12.4 X10*3/uL (4.8-10.8)
[2022-07-20] MEDS: Acetaminophen Supp 650 MG SUPP.RECT PR (18:49)
[2022-07-20 18:55] LABS: Prothrombin Time Whole Bld POC 14.3 sec (11.1-13.5); ~PT, ~INR - Anti Coag Clinic 1.2 (0.9-1.1)
[2022-07-20] MEDS: SODIUM CHLORIDE 2730 ML IV (18:57)
--- NOTE | 2022-07-20 19:00 | ECG_ITS ---
Test Reason : CP Blood Pressure : / mmHG Vent. Rate : 120 BPM Atrial Rate : 120 BPM P-R Int : 144 ms QRS Dur : 070 ms QT Int : 294 ms P-R-T Axes : 038 -07 049 degrees QTc Int : 415 ms Sinus tachycardia with occasional Premature ventricular complexes Low voltage QRS Cannot rule out Anterior infarct (cited on or before 14-NOV-2020) Abnormal ECG When compared with ECG of 14-NOV-2020 21:46, Premature ventricular complexes are now Present Referred By: Neno Echevarria Electronically Signed By:REYNOLD GALLEGOS MD
--- NOTE | 2022-07-20 19:00 | PC.NURSE ---
pt is more alert at this time answering questions appropriately, pt is able to move her right arm at this time, hand grasp appears to be slightly weaker on the right side from the left side, pt is reporting of dizziness while being moved around in bed, no vomiting at this time, pt is reporting rib pain, sating at 89% on room air so pt put on 2l via nasal canual and sating at 93%, sinus tach on the monitor.
[2022-07-20 19:06] LABS: Alanine Aminotransferase 28 U/L (0-31); Albumin Level 3.3 g/dL (3.5-5.0); Alkaline Phosphatase 86 U/L (39-117); Anion Gap 16 (12-20); Aspartate Amino Transferase 18 U/L (5-31); Bilirubin Total 0.6 mg/dL (0.0-1.0); Blood Urea Nitrogen 24 mg/dL (9-16); Calcium 8.6 mg/dL (8.4-10.2); Carbon Dioxide 20 mmol/L (22-29); Chloride 102 mmol/L (96-108); Creatinine Clr Calc Pharmacy 63.5; Estimated Glomerular Filt Rate 53; Glucose Random 211 mg/dL (60-115); Magnesium 1.6 mg/dL (1.6-2.6); Sodium 134 mmol/L (135-145); Total Protein 5.7 g/dL (6.5-8.0)
[2022-07-20] MEDS: cefTRIAXone sodium 1 GM in 0.9 % Sodium Chloride 50 ML IV (19:09)
[2022-07-20 19:10] LABS: B Type Natriuretic Peptide 37 pg/mL (<100)
[2022-07-20 19:11] VITALS: BP 131/66; PULSE 117; RESP 22; O2SAT 89
[2022-07-20 19:12] LABS: SLIDE REVIEW VERIFIED
[2022-07-20 19:16] LABS: Lactic Acid 2.2 mmol/L (0.5-2.0)
[2022-07-20 19:28] LABS: COVID-19 Test Negative (Negative); IDNOW Serial# 16C4AD1C
[2022-07-20 19:29] VITALS: BP 121/60; PULSE 113; RESP 22; TEMP 39.3; O2SAT 93
[2022-07-20 19:35] LABS: Appearance Urine Cloudy; Color Urine Yellow; Glucose Urine UA 500 mg/dL (Negative); Leukocyte Esterase Urine Moderate (2+) (Negative); Nitrite Urine Positive (Negative); UMIC TRIGGER UACC YES; Urine Blood Large (3+) (Negative); Urine Ketones Trace mg/dL (Negative); Urine Protein 100 (2+) mg/dL (Neg-Trace)
[2022-07-20 19:39] LABS: Amphetamine Screen Urine Not Detected (Not Detect); Barbiturates, Urine Not Detected (Not Detect); Benzodiazepines Screen Urine Not Detected (Not Detect); Cannabinoid Screen Urine Not Detected (Not Detect); Cocaine Screen Urine Not Detected (Not Detect); Fentanyl, urine Not Detected (Not Detect); Opiate Screen Urine Not Detected (Not Detect); Phencyclidine Screen Urine Not Detected (Not Detect); UACC Culture Trigger YES; WBC Urine >50 /HPF (0-5)
[2022-07-20 19:40] LABS: Bacteria Urine 2+ (None Seen); Hyaline Casts Urine 0-2 /LPF (0-2); Squamous Epithelial Cell Urine 0-2 /HPF (0-2)
[2022-07-20 20:25] LABS: D Dimer High Sensitivity 294 NG/ML
--- NOTE | 2022-07-20 20:27 | P.HPHOSP_ITS ---
History of Present Illness Date of Service: 07/20/22 Chief Complaint: AMS, fever This is a 62-year-old female with past medical history of hypothyroidism, TBI, hypotension, anxiety, diabetes with diabetic neuropathy, presents the emergency department from [facility] facility with reports of altered mental status, fever. Patient currently alert, oriented to self and place. Patient tells me that she came into the hospital due to urinary urgency and frequency as well as suprapubic and flank pain bilaterally. All her symptoms started about 1 day prior. She reports chills, but unsure if she had any fever long-term. Denies any chest pain, no shortness of breath. Patient does report having a file 2 days prior with no loss of consciousness. Patient reports on falling she hurt the right side of her ribcage, and therefore now she has difficulty with taking deep breaths. She is complaining of a cough, increased sputum production. She denies any orthopnea and no PND. Denies any diarrhea or constipation, no lower extremity edema. Per long-term report patient was started on cefuroxime the day prior at the long-term. On initial arrival to the ED patient found to have a fever of 104.4, heart rate of 134, respiratory rate of 24, blood pressure 143/51 Patient also noted to drop her oxygen to 89% on room air Labs are significant for WBC count of 12.4, lactic acid of 2.2, UA positive for leukocyte Estrace, urine nitrites, WBC Chest chest, abdomen, pelvis CT shows bladder wall thickening and hyperenhancement with associated urothelial hyperenhancement in the right ureter and renal pelvis most concerning for cystitis with an ascending right urinary tract infection. No acute pulmonary findings. Esophagitis was also seen on chest CT. Review of Systems Review of Systems: Yes all other systems are reviewed and are negative [facility] Medical History (Updated 07/21/22 @ 05:38 by Nehemiah Snowden MD) Anxiety, generalized Chronic pain after traumatic injury Depression Diabetes Diabetic neuropathy Gait disturbance Gastroparesis Gastroparesis History of DVT (deep vein thrombosis) Hyperlipidemia Hypothyroidism Memory deficit Nausea & vomiting Pancreatitis Pancreatitis, chronic Postural hypotension Restless leg syndrome Seizure disorder TBI (traumatic brain injury) Traumatic brain injury Type 2 diabetes mellitus with diabetic polyneuropathy Family History Mother Diabetes Stroke Heart attack Dementia Father Stroke Heart attack Brother Diabetes Sister Diabetes Other Mental health disorder Substance use disorder Surgical History H/O breast surgery H/O thyroidectomy History of appendectomy History of esophagogastroduodenoscopy (EGD) Hx of section Hx of cholecystectomy Hx of colonoscopy Hx of tubal ligation Social History Household Members: Significant Other Housing: Condominium Alcohol intake: never Patient Tobacco Use Status: Current everyday Tobacco user Tobacco use type: Cigarette Cigarettes Per Day: 6 Years Smoked: 30 Smoked in Last 30 Days: Yes Use of substances other than those prescribed or required for medical reasons: No Advance Directives: No Advance Directives Information Provided: No Current occupational status: unemployed Meds Allergies Allergy/AdvReac Type Severity Reaction Status Date / Time buprenorphine [From Butrans] Allergy Unknown muscle Verified 10/31/21 11:41 spasm & Vomiting ciprofloxacin [From CIPRO] Allergy Unknown UNKNOWN Verified 10/31/21 11:41 clarithromycin [From Biaxin] Allergy Unknown unknown Verified 10/31/21 11:41 doxycycline Allergy Unknown Unknown Verified 10/31/21 11:41 metformin AdvReac Severe Verified 10/31/21 11:41 abdominal cramping vomiting diarrhea Active Medications: Current Medications Pharmacy Consult (Consult Rx Perform Med Rec) 1 each MISCELLANE ONCE PRN PRN Reason: Consult order Home Medications Medication Instructions Recorded Confirmed Last Taken Type blood-glucose meter (OneTouch 11/14/20 07/20/22 Unknown History Verio Flex Meter) lancets (OneTouch UltraSoft 11/14/20 07/20/22 Unknown History Lancets) omeprazole 20 mg capsule,delayed 1 cap PO DAILY 11/14/20 07/20/22 Unknown History release rivaroxaban 20 mg tablet (Xarelto) 1 tab PO DAILY 11/14/20 07/20/22 Unknown History rosuvastatin 10 mg tablet 1 tab PO BEDTIME 11/14/20 07/20/22 Unknown History venlafaxine 150 mg 1 cap PO DAILY 11/14/20 07/20/22 Unknown History capsule,extended release 24 hr ondansetron HCl 4 mg tablet 4 mg PO NEEDED 04/06/21 04/22/21 Unknown History pen needle, diabetic 32 gauge x 06/01/21 07/20/22 Unknown History (BD Ultra-Fine Destiny Pen Needle) gabapentin 100 mg capsule 100 mg PO TID 10/31/21 07/20/22 Unknown History levothyroxine 112 mcg tablet 112 mcg PO DAILY 10/31/21 07/20/22 Unknown History metformin 500 mg tablet 500 mg PO DAILY 10/31/21 07/20/22 Unknown History metoclopramide HCl 10 mg tablet 10 mg PO BEDTIME 10/31/21 07/20/22 Unknown Histo ry metoclopramide HCl 10 mg tablet 10 mg PO QIDACHS 10/31/21 07/20/22 Unknown History tramadol 50 mg tablet 50 mg PO Q6H PRN Pain 10/31/21 07/20/22 Unknown History cefuroxime axetil 250 mg tablet 1 tab PO BID 07/20/22 07/20/22 Unknown History insulin glargine-yfgn 100 unit/mL 23 unit subcut BEDTIME 07/20/22 07/20/22 Unknown History (3 mL) subcutaneous pen ipratropium 20 mcg-albuterol 100 1 puff inhalation AC 07/20/22 07/20/22 Unknown History mcg/actuation mist for inhalation (Combivent Respimat) nystatin 100,000 unit/gram topical 1 appl topical DAILY 07/20/22 07/21/22 Unknown History powder (Nyamyc) sitagliptin 50 mg tablet (Januvia) 1 tab PO DAILY 07/20/22 07/20/22 Unknown History Physical Exam Vital Signs and Narrative: Vital Signs: Last Vital Signs Temp 102.7 F H 07/20/22 19:29 Pulse 113 H 07/20/22 19:29 Resp 22 H 07/20/22 19:29 BP 121/60 07/20/22 19:29 Pulse Ox 93 07/20/22 19:29 O2 Del Method 07/20/22 19:29 O2 Flow Rate 2 07/20/22 19:29 BMI result Body Mass Index 31.4 Const: General: cooperative and no acute distress Orientation/consciousnes s: patient oriented x3 Eyes: General: appearance normal, both eyes and all related structures Resp: Effort & Inspection: normal respiratory effort Auscultation: clear to auscultation bilaterally Cardio: Rate: regular rate Rhythm: regular rhythm GI: Palpation (GI): Soft to palpation Auscultation: normal bowel sounds : Other: Costovertebral angle tenderness bilaterally Skin: General skin exam: no rashes or lesions noted Neuro: General: patient oriented x3 Cognition (Neuro): normal cognition Extrem: General: Yes normal to inspection and Yes no pedal edema Results Labs CBC and Chem 7: 07/20/22 18:39 07/20/22 18:39 Labs: Laboratory Results - last 24 hr 07/20/22 07/20/22 07/20/22 18:06 18:39 18:39 MCV 84.5 MCH 27.7 MCHC 32.8 RDW 13.2 Plt Count 212 MPV 9.9 Immature Gran % (Auto) 0.4 Neut % (Auto) 91.7 H Lymph % (Auto) 3.6 L [place] % (Auto) 4.0 Eos % (Auto) 0.1 Baso % (Auto) 0.2 Lymph # (Auto) 0.4 L [place] # (Auto) 0.5 Eos # (Auto) 0.0 Baso # (Auto) 0.0 Abs Immat Gran (auto) 0.05 H Absolute Neuts (auto) 11.4 H Absolute Nucleated RBC 0.000 Nucleated RBC % (auto) 0.0 Smear Tech's Comments VERIFIED Whole Blood PT Whole Blood INR D-Dimer High Sensitivty Anion Gap 16 Estim Creat Clear Calc 63.5 Estimated GFR 53 POC Glucose 257 H Random Glucose 211 H Lactic Acid Calcium 8.6 D Magnesium 1.6 Total Bilirubin 0.6 AST 18 ALT 28 Alkaline Phosphatase 86 Troponin I High Sens B-Natriuretic Peptide Total Protein 5.7 L Albumin 3.3 L Urine Color Urine Appearance Urine pH Ur Specific [place] Urine Protein Urine Glucose (UA) Urine Ketones Urine Blood Urine Nitrite Ur Leukocyte Esterase Urine RBC Urine WBC Ur Squamous Epith Cells Urine Bacteria Hyaline Casts Urine Opiates Screen Urine Fentanyl Screen Ur Barbiturates Screen Ur Phencyclidine Scrn Ur Amphetamines Screen U Benzodiazepines Scrn Urine Cocaine Screen U Marijuana (THC) Screen COVID-19 (MC) COVID-19 Clin Com 07/20/22 07/20/22 07/20/22 18:39 18:39 18:39 MCV MCH MCHC RDW Plt Count MPV Immature Gran % (Auto) Neut % (Auto) Lymph % (Auto) [place] % (Auto) Eos % (Auto) Baso % (Auto) Lymph # (Auto) [place] # (Auto) Eos # (Auto) Baso # (Auto) Abs Immat Gran (auto) Absolute Neuts (auto) Absolute Nucleated RBC Nucleated RBC % (auto) Smear Tech's Comments Whole Blood PT Whole Blood INR D-Dimer High Sensitivty Anion Gap Estim Creat Clear Calc Estimated GFR POC Glucose Random Glucose Lactic Acid 2.2 H* Calcium Magnesium Total Bilirubin AST ALT Alkaline Phosphatase Troponin I High Sens 7.0 B-Natriuretic Peptide 37 Total Protein Albumin Urine Color Urine Appearance Urine pH Ur Specific [place] Urine Protein Urine Glucose (UA) Urine Ketones Urine Blood Urine Nitrite Ur Leukocyte Esterase Urine RBC Urine WBC Ur Squamous Epith Cells Urine Bacteria Hyaline Casts Urine Opiates Screen Urine Fentanyl Screen Ur Barbiturates Screen Ur Phencyclidine Scrn Ur Amphetamines Screen U Benzodiazepines Scrn Urine Cocaine Screen U Marijuana (THC) Screen COVID-19 ([facility]) COVID-19 [employer] Com 07/20/22 07/20/22 07/20/22 18:39 18:49 19:08 MCV MCH MCHC RDW Plt Count MPV Immature Gran % (Auto) Neut % (Auto) Lymph % (Auto) [place] % (Auto) Eos % (Auto) Baso % (Auto) Lymph # (Auto) [place] # (Auto) Eos # (Auto) Baso # (Auto) Abs Immat Gran (auto) Absolute Neuts (auto) Absolute Nucleated RBC Nucleated RBC % (auto) Smear Tech's Comments Whole Blood PT 14.3 H Whole Blood INR 1.2 H D-Dimer High Sensitivty 294 Anion Gap Estim Creat Clear Calc Estimated GFR POC Glucose Random Glucose Lactic Acid Calcium Magnesium Total Bilirubin AST ALT Alkaline Phosphatase Troponin I High Sens B-Natriuretic Peptide Total Protein Albumin Urine Color Urine Appearance Urine pH Ur Specific [place] Urine Protein Urine Glucose (UA) Urine Ketones Urine Blood Urine Nitrite Ur Leukocyte Esterase Urine RBC Urine WBC Ur Squamous Epith Cells Urine Bacteria Hyaline Casts Urine Opiates Screen Urine Fentanyl Screen Ur Barbiturates Screen Ur Phencyclidine Scrn Ur Amphetamines Screen U Benzodiazepines Scrn Urine Cocaine Screen U Marijuana (THC) Screen COVID-19 ([facility]) Negative COVID-19 [employer] Com See Note 07/20/22 07/20/22 19:08 19:08 MCV MCH MCHC RDW Plt Count MPV Immature Gran % (Auto) Neut % (Auto) Lymph % (Auto) [place] % (Auto) Eos % (Auto) Baso % (Auto) Lymph # (Auto) [place] # (Auto) Eos # (Auto) Baso # (Auto) Abs Immat Gran (auto) Absolute Neuts (auto) Absolute Nucleated RBC Nucleated RBC % (auto) Smear Tech's Comments Whole Blood PT Whole Blood INR D-Dimer High Sensitivty Anion Gap Estim Creat Clear Calc Estimated GFR POC Glucose Random Glucose Lactic Acid Calcium Magnesium Total Bilirubin AST ALT Alkaline Phosphatase Troponin I High Sens B-Natriuretic Peptide Total Protein Albumin Urine Color Yellow Urine Appearance Cloudy Urine pH 6.0 Ur Specific [place] 1.010 Urine Protein 100 (2+) H Urine Glucose (UA) 500 H Urine Ketones Trace Urine Blood Large (3+) H Urine Nitrite Positive H Ur Leukocyte Esterase Moderate (2+) H Urine RBC 6-10 H Urine WBC >50 Ur Squamous Epith Cells 0-2 Urine Bacteria 2+ Hyaline Casts 0-2 Urine Opiates Screen Not Detected Urine Fentanyl Screen Not Detected Ur Barbiturates Screen Not Detected Ur Phencyclidine Scrn Not Detected Ur Amphetamines Screen Not Detected U Benzodiazepines Scrn Not Detected Urine Cocaine Screen Not Detected U Marijuana (THC) Screen Not Detected COVID-19 (MC) COVID-19 Clin Com Imaging Radiologist's Impressions: Impressions Head CT 07/20/22 18:16 IMPRESSION: 1. No acute intracranial pathology. 2. Moderate chronic white matter microangiopathy. This critical result was discussed with Neno Echevarria at 6:25 PM on 07/20/2022. It was ascertained that the content and urgency of the report was understood at the time of direct communication. Head/Neck CTA 07/20/22 18:33 IMPRESSION: CT HEAD: No intracranial hemorrhage or large acute infarction. Background changes of chronic microangiopathy. CTA NECK: No hemodynamically significant stenosis in the major arteries of the neck. CTA HEAD: No large vessel occlusion or significant stenosis within the intracranial circulation. This critical result was discussed with MATT Jin on 07/20/2022 6:53 PM, and it was ascertained that the content and urgency of the report was understood at the time of direct communication. Abdomen/Pelvis CT 07/20/22 18:58 IMPRESSION: * Bladder wall thickening and hyperenhancement with associated urothelial hyperenhancement in the right ureter and renal pelvis, most concerning for cystitis with an ascending right urinary tract infection. Recommend correlation with urinalysis. * Circumferential wall thickening in the distal esophagus, potentially due to esophagitis. * Consider follow-up endoscopy for further assessment on a nonemergent basis. * No acute pulmonary findings. * Moderate stool burden in the colon. Chest CT 07/20/22 18:58 IMPRESSION: * Bladder wall thickening and hyperenhancement with associated urothelial hyperenhancement in the right ureter and renal pelvis, most concerning for cystitis with an ascending right urinary tract infection. Recommend correlation with urinalysis. * Circumferential wall thickening in the distal esophagus, potentially due to esophagitis. * Consider follow-up endoscopy for further assessment on a nonemergent basis. * No acute pulmonary findings. * Moderate stool burden in the colon. Assessment and Plan (1) Sepsis: Status: Acute (2) Pyelonephritis: Status: Acute (3) Acute cystitis: Status: Acute (4) Recurrent UTI: Status: Acute (5) COPD exacerbation: Status: Acute (6) Acute respiratory failure with hypoxia: Status: Acute Plan This is a 62-year-old female with past medical history of TBI presents from long-term with altered mental status or fever. On my interview patient is alert, oriented. # sepsis - present on arrival - likely secondary to urinary tract infection/acute cystitis/pyelonephritis - will treat with IV antibiotics - follow cultures # acute cystitis/pyelonephritis/recurrent UTI - positive UA, images suggestive of pyelonephritis, as well as has costovertebral angle tenderness - treat with IV antibiotics - follow cultures - of note patient was on cefuroxime op, with worsening symptoms # COPD exacerbation/acute hypoxic respiratory failure - patient with cough, increased sputum production, dyspnea, as well as hypoxic on room air likely secondary to COPD exacerbation - will treat with Solu-Medrol, DuoNeb p.r.n. as well as schedule - monitor respiratory status - no evidence of pneumonia on chest CT - titrate oxygen off as tolerated - incentive spirometry # diabetes - hold oral antihyperglycemics - low-dose sliding scale insulin - diabetic diet - POC qi.d. a.c. HS # restless leg syndrome - continue ropinirole # chronic pain - continue tramadol # depression anxiety - continue antidepressant # history of seizures - continue antiepileptic # history of DVT - continue Xarelto DVT prophylaxis: Xarelto Given sepsis, requiring IV antibiotics for pyelonephritis patient will require minimum 2 night inpatient hospital stay for further management and monitor Quality Stroke Does the patient have a stroke diagnosis?: No VTE Prior VTE?: No VTE Risk Level:: Medical - moderate - high VTE Device Contraindication: Treatment Not Indicated VTE Drug Contraindication: N/A - Med Ordered
[2022-07-20 20:46] LABS: Reflex Lactate? Lactic Acid Added
[2022-07-20 21:08] VITALS: BP 119/68; PULSE 110; RESP 20; TEMP 38.7; O2SAT 94
[2022-07-20 21:33] LABS: ~Lactic Acid-LAB USE ONLY 0.9 mmol/L (0.5-2.0)
[2022-07-20] MEDS: methylPREDNISolone Sod Succ 40 MG/ML VIAL IVPUSH (21:36)
[2022-07-21] VITALS (10 sets, daily range): BP systolic 121–141; BP diastolic 59–83; PULSE 81–100; RESP 12–18; TEMP 36.4–37.1; O2SAT 92–98
--- NOTE | 2022-07-21 00:16 | PC.NURSE ---
pt sleeping, RR even and unlabored, other vss. pt pending admission orders.
[2022-07-21 05:41] LABS: MANUAL DIFF FLAG NO
[2022-07-21 05:43] LABS: Basophils Percent Auto 0.2 % (0-2); Eosinophils Absolute Auto 0.2 X10*3/uL (0.0-0.4); Eosinophils Percent Auto 1.3 % (0-4); Hematocrit 37.2 % (37.0-47.0); Hemoglobin 12.1 g/dl (12.0-16.0); Imm Gran Abs Auto 0.15 X10*3/uL (0.00-0.03); Imm Gran Pct Auto 0.8 % (0.0-0.4); Lymphocytes Percent Auto 5.4 % (20-40); Mean Corpuscular HGB Conc 32.5 g/dl (31.0-35.0); Mean Corpuscular Hemoglobin 28.1 pg (27.0-33.0); Mean Corpuscular Volume 86.5 fL (80.0-98.0); Monocytes Absolute Auto 0.5 X10*3/uL (0.1-1.2); Monocytes Percent Auto 2.6 % (2-11); Neutrophils Absolute Auto 16.3 x10*3/uL (2.0-8.3); Neutrophils Percent Auto 89.7 % (45-73); Platelet Count 196 X10*3/uL (160-400); Red Cell Distribution Width 13.2 % (11.0-16.0); White Blood Count 18.2 X10*3/uL (4.8-10.8)
[2022-07-21 06:06] LABS: Anion Gap 19 (12-20); Blood Urea Nitrogen 20 mg/dL (9-16); Calcium 8.6 mg/dL (8.4-10.2); Carbon Dioxide 16 mmol/L (22-29); Chloride 108 mmol/L (96-108); Creatinine Clr Calc Pharmacy 90.1; Estimated Glomerular Filt Rate > 60; Glucose Random 265 mg/dL (60-115); Potassium 4.6 mmol/L (3.3-5.1); Sodium 138 mmol/L (135-145)
--- NOTE | 2022-07-21 06:37 | PC.NURSE ---
attempted to call in report, RN to call back.
--- NOTE | 2022-07-21 07:42 | PHA.MEDREC ---
Pharmacy Consult ? Medication Reconciliation Pharmacy has completed the medication reconciliation. Checked med rec done overnight
[2022-07-21] MEDS: Levothyroxine Sodium 112 MCG TABLET PO (07:59)
[2022-07-21] MEDS: 0.9 % Sodium Chloride Flush 3 ML SYRINGE IVFLUSH ×3 (07:59→21:00)
[2022-07-21] MEDS: Albuterol/Iprat 2.5/0.5MG 3 ML AMPUL.NEB INHALE ×3 (08:13→18:50)
[2022-07-21] MEDS: Atorvastatin Calcium 40 MG TABLET PO (10:01)
[2022-07-21] MEDS: levETIRAcetam 1,000 MG TABLET 1000 MG PO ×2 (10:01→20:59)
[2022-07-21] MEDS: Omeprazole 20 MG CAPSULE.DR PO (10:01)
[2022-07-21] MEDS: Rivaroxaban 20 MG TABLET PO (10:01)
[2022-07-21] MEDS: SITagliptin Phosphate 50 MG TABLET PO (10:01)
[2022-07-21] MEDS: rOPINIRole HCL 1 MG TABLET PO ×2 (10:01→15:08)
[2022-07-21] MEDS: Gabapentin 100 MG CAPSULE PO ×3 (10:02→20:59)
[2022-07-21] MEDS: methylPREDNISolone Sod Succ 40 MG/ML VIAL IVPUSH ×2 (10:02→20:58)
[2022-07-21] MEDS: Venlafaxine HCl ER 150 MG CAP.ER.24H PO (10:02)
[2022-07-21 11:26] LABS: Glucose, Whole Blood 354 mg/dL (60-115)
[2022-07-21] MEDS: Nystatin Powder 15 GM BOTTLE 1 APPL TOPICAL (11:35)
[2022-07-21] MEDS: Insulin Lispro 100 UNIT/ML 3 ML VIAL SUBCUT ×5 (12:04→20:59)
--- NOTE | 2022-07-21 12:58 | HO.PM.IMPN ---
Subjective Subjective Date of Service: 07/21/22 Interval History: seen and examined this morning follow up for pyelonephritis, respiratory failure denies sob, cough, abdominal pain Review of Systems Review of Systems: Yes all other systems are reviewed and are negative Constitutional Constitutional: Denies chills and Denies fever(s) Cardiovascular Cardiovascular: Denies chest pain, Denies palpitations and Denies dyspnea Respiratory Respiratory: Denies cough and Denies dyspnea Gastrointestinal Gastrointestinal: Denies abdominal pain, Denies nausea and Denies vomiting Endocrine Endocrine: Denies palpitations Physical Exam Vital Signs: Vital Signs: Last Vital Signs Temp 98 F 07/21/22 11:03 Pulse 92 07/21/22 11:46 Resp 18 07/21/22 11:46 BP 136/63 07/21/22 11:03 Pulse Ox 98 07/21/22 11:03 O2 Del Method 07/21/22 11:03 O2 Flow Rate 2 07/21/22 07:35 BMI result Body Mass Index 31.4 Const: General: cooperative, alert and awake Nutritional Appearance: average body habitus Orientation/consciousness: patient oriented x3 Resp: Effort & Inspection: normal respiratory effort and able to speak in complete sentences Auscultation: clear to auscultation bilaterally Cardio: Rhythm: regular rhythm Heart sounds: S1 normal heart sound present and S2 normal heart sound present GI: Inspection: No distended Palpation (GI): Soft to palpation Neuro: Other: grossly nonfocal General: patient oriented x3 Extrem: Other: able to move all extremities; upper extremity tremor - chronic per patient Objective Data Active Medications Acetaminophen (Acetaminophen 325 Mg Tablet) 650 mg PO Q6H PRN PRN Reason: Pain, Mild (Pain Scale 1-3) Albuterol/Ipratropium (Albuterol/Iprat 2.5/0.5mg 3 Ml Ampul.Neb) 3 ml INHALE RQ4H PRN PRN Reason: Shortness of Breath/Wheezing Albuterol/Ipratropium (Albuterol/Iprat 2.5/0.5mg 3 Ml Ampul.Neb) 3 ml INHALE RQ4H WHILE AWAKE [facility] Last Admin: 07/21/22 11:41 Dose: 3 ml Documented By: OMAR Atorvastatin Calcium (Atorvastatin Calcium 40 Mg Tablet) 40 mg PO DAILY [facility] Last Admin: 07/21/22 10:01 Dose: 40 mg Documented By: HIRAM Dextrose (Dextrose 50 % 25 Gm/50 Ml Syringe) 25 gm IVPUSH Q15M PRN; Protocol PRN Reason: per Hypoglycemia Standing Ord. Docusate Sodium (Docusate Sodium 100 Mg Capsule) 100 mg PO DAILY PRN PRN Reason: Constipation Gabapentin (Gabapentin 100 Mg Capsule) 100 mg PO TID [facility] Last Admin: 07/21/22 10:02 Dose: 100 mg Documented By: HIRAM Glucose (Glucose Gel 15 Gm Gel..Gram.) 15 gm PO Q15M PRN; Protocol PRN Reason: per Hypoglycemia Standing Ord. Ceftriaxone Sodium 1 gm/ (Sodium Chloride) 50 mls @ 100 mls/hr IV Q24H [facility] Insulin Glargine (Insulin Glargine,Hum.Rec.Anlog 100 Unit/Ml 10 Ml Vial) 23 unit SUBCUT BEDTIME [facility] Insulin Human Lispro (Insulin Lispro 100 Unit/Ml 3 Ml Vial) 0 unit SUBCUT QIDACHS [facility]; Protocol Last Admin: 07/21/22 12:04 Dose: 10 unit Documented By: HIRAM Levetiracetam (Levetiracetam 1,000 Mg Tablet) 1,000 mg PO BID [facility] Last Admin: 07/21/22 10:01 Dose: 1,000 mg Documented By: HIRAM Levothyroxine Sodium (Levothyroxine Sodium 112 Mcg Tablet) 112 mcg PO DAILY@0630 [facility] Last Admin: 07/21/22 07:59 Dose: 112 mcg Documented By: MAYKEL Methylprednisolone Sodium Succinate (Methylprednisolone Sod Succ 40 Mg/Ml Vial) 40 mg IVPUSH Q12H [facility] Last Admin: 07/21/22 10:02 Dose: 40 mg Documented By: HIRAM Metoclopramide HCl (Metoclopramide Hcl 10 Mg Tablet) 10 mg PO BEDTIME [facility] Nystatin (Nystatin Powder 15 Gm Bottle) 1 appl TOPICAL DAILY [facility]; Protocol Last Admin: 07/21/22 11:35 Dose: 1 appl Documented By: HIRAM Omeprazole (Omeprazole 20 Mg Capsule.) 20 mg PO DAILY [facility] Last Admin: 07/21/22 10:01 Dose: 20 mg Documented By: HIRAM Ondansetron HCl (Ondansetron Hcl 4 Mg/2 Ml Vial) 4 mg IVPUSH Q8H PRN PRN Reason: Nausea and Vomiting Pharmacy Consult (Consult Rx Perform Med Rec) 1 each MISCELLANE ONCE PRN PRN Reason: Consult order Polyethylene Glycol (Polyethylene Glycol 3350 17 Gm Powd.Pack) 17 gm PO DAILY PRN PRN Reason: Constipation Rivaroxaban (Rivaroxaban 20 Mg Tablet) 20 mg PO DAILY [facility] Last Admin: 07/21/22 10:01 Dose: 20 mg Documented By: HIRAM Ropinirole HCl (Ropinirole Hcl 1 Mg Tablet) 1 mg PO BID@0900,1500 [facility] Last Admin: 07/21/22 10:01 Dose: 1 mg Documented By: HIRAM Ropinirole HCl (Ropinirole Hcl 1 Mg Tablet) 2 mg PO BEDTIME [facility] Senna/Docusate Sodium (Sennosides/Docusate Sodium Tablet) 1 tab PO BEDTIME [facility] Sitagliptin Phosphate (Sitagliptin Phosphate 50 Mg Tablet) 50 mg PO DAILY [facility] Last Admin: 07/21/22 10:01 Dose: 50 mg Documented By: HIRAM Sodium Chloride (0.9 % Sodium Chloride Flush 3 Ml Syringe) 3 ml IVFLUSH QSHIFT [facility] Last Admin: 07/21/22 07:59 Dose: 3 ml Documented By: MAYKEL Tramadol HCl (Tramadol Hcl 50 Mg Tablet) 50 mg PO Q6H PRN PRN Reason: Pain, Severe (Pain Scale 7-10) Venlafaxine HCl (Venlafaxine Hcl Er 150 Mg Cap.Er.24h) 150 mg PO DAILY [facility] Last Admin: 07/21/22 10:02 Dose: 150 mg Documented By: HIRAM Labs CBC & Chem 7: 07/21/22 05:29 07/21/22 05:29 Labs: Laboratory Results - last 24 hr 07/20/22 07/20/22 07/20/22 18:06 18:39 18:39 MCV 84.5 MCH 27.7 MCHC 32.8 RDW 13.2 Plt Count 212 MPV 9.9 Immature Gran % (Auto) 0.4 Neut % (Auto) 91.7 H Lymph % (Auto) 3.6 L [place] % (Auto) 4.0 Eos % (Auto) 0.1 Baso % (Auto) 0.2 Lymph # (Auto) 0.4 L [place] # (Auto) 0.5 Eos # (Auto) 0.0 Baso # (Auto) 0.0 Abs Immat Gran (auto) 0.05 H Absolute Neuts (auto) 11.4 H Absolute Nucleated RBC 0.000 Nucleated RBC % (auto) 0.0 Smear Tech's Comments VERIFIED Whole Blood PT Whole Blood INR D-Dimer High Sensitivty Anion Gap 16 Estim Creat Clear Calc 63.5 Estimated GFR 53 POC Glucose 257 H Random Glucose 211 H Lactic Acid Lactic Acid F/U @ 2Hr Calcium 8.6 D Magnesium 1.6 Total Bilirubin 0.6 AST 18 ALT 28 Alkaline Phosphatase 86 Troponin I High Sens B-Natriuretic Peptide Total Protein 5.7 L Albumin 3.3 L Urine Color Urine Appearance Urine pH Ur Specific [place] Urine Protein Urine Glucose (UA) Urine Ketones Urine Blood Urine Nitrite Ur Leukocyte Esterase Urine RBC Urine WBC Ur Squamous Epith Cells Urine Bacteria Hyaline Casts Urine Opiates Screen Urine Fentanyl Screen Ur Barbiturates Screen Ur Phencyclidine Scrn Ur Amphetamines Screen U Benzodiazepines Scrn Urine Cocaine Screen U Marijuana (THC) Screen COVID-19 ([facility]) COVID-19 Clin Com 07/20/22 07/20/22 07/20/22 18:39 18:39 18:39 MCV MCH MCHC RDW Plt Count MPV Immature Gran % (Auto) Neut % (Auto) Lymph % (Auto) [place] % (Auto) Eos % (Auto) Baso % (Auto) Lymph # (Auto) [place] # (Auto) Eos # (Auto) Baso # (Auto) Abs Immat Gran (auto) Absolute Neuts (auto) Absolute Nucleated RBC Nucleated RBC % (auto) Smear Tech's Comments Whole Blood PT Whole Blood INR D-Dimer High Sensitivty Anion Gap Estim Creat Clear Calc Estimated GFR POC Glucose Random Glucose Lactic Acid 2.2 H* Lactic Acid F/U @ 2Hr Calcium Magnesium Total Bilirubin AST ALT Alkaline Phosphatase Troponin I High Sens 7.0 B-Natriuretic Peptide 37 Total Protein Albumin Urine Color Urine Appearance Urine pH Ur Specific [place] Urine Protein Urine Glucose (UA) Urine Ketones Urine Blood Urine Nitrite Ur Leukocyte Esterase Urine RBC Urine WBC Ur Squamous Epith Cells Urine Bacteria Hyaline Casts Urine Opiates Screen Urine Fentanyl Screen Ur Barbiturates Screen Ur Phencyclidine Scrn Ur Amphetamines Screen U Benzodiazepines Scrn Urine Cocaine Screen U Marijuana (THC) Screen COVID-19 ([facility]) COVID-19 Clin Com 07/20/22 07/20/22 07/20/22 18:39 18:49 19:08 MCV MCH MCHC RDW Plt Count MPV Immature Gran % (Auto) Neut % (Auto) Lymph % (Auto) [place] % (Auto) Eos % (Auto) Baso % (Auto) Lymph # (Auto) [place] # (Auto) Eos # (Auto) Baso # (Auto) Abs Immat Gran (auto) Absolute Neuts (auto) Absolute Nucleated RBC Nucleated RBC % (auto) Smear Tech's Comments Whole Blood PT 14.3 H Whole Blood INR 1.2 H D-Dimer High Sensitivty 294 Anion Gap Estim Creat Clear Calc Estimated GFR POC Glucose Random Glucose Lactic Acid Lactic Acid F/U @ 2Hr Calcium Magnesium Total Bilirubin AST ALT Alkaline Phosphatase Troponin I High Sens B-Natriuretic Peptide Total Protein Albumin Urine Color Urine Appearance Urine pH Ur Specific [place] Urine Protein Urine Glucose (UA) Urine Ketones Urine Blood Urine Nitrite Ur Leukocyte Esterase Urine RBC Urine WBC Ur Squamous Epith Cells Urine Bacteria Hyaline Casts Urine Opiates Screen Urine Fentanyl Screen Ur Barbiturates Screen Ur Phencyclidine Scrn Ur Amphetamines Screen U Benzodiazepines Scrn Urine Cocaine Screen U Marijuana (THC) Screen COVID-19 ([facility]) Negative COVID-19 Clin Com See Note 07/20/22 07/20/22 07/20/22 19:08 19:08 21:12 MCV MCH MCHC RDW Plt Count MPV Immature Gran % (Auto) Neut % (Auto) Lymph % (Auto) [place] % (Auto) Eos % (Auto) Baso % (Auto) Lymph # (Auto) [place] # (Auto) Eos # (Auto) Baso # (Auto) Abs Immat Gran (auto) Absolute Neuts (auto) Absolute Nucleated RBC Nucleated RBC % (auto) Smear Tech's Comments Whole Blood PT Whole Blood INR D-Dimer High Sensitivty Anion Gap Estim Creat Clear Calc Estimated GFR POC Glucose Random Glucose Lactic Acid Lactic Acid F/U @ 2Hr 0.9 Calcium Magnesium Total Bilirubin AST ALT Alkaline Phosphatase Troponin I High Sens B-Natriuretic Peptide Total Protein Albumin Urine Color Yellow Urine Appearance Cloudy Urine pH 6.0 Ur Specific [place] 1.010 Urine Protein 100 (2+) H Urine Glucose (UA) 500 H Urine Ketones Trace Urine Blood Large (3+) H Urine Nitrite Positive H Ur Leukocyte Esterase Moderate (2+) H Urine RBC 6-10 H Urine WBC >50 Ur Squamous Epith Cells 0-2 Urine Bacteria 2+ Hyaline Casts 0-2 Urine Opiates Screen Not Detected Urine Fentanyl Screen Not Detected Ur Barbiturates Screen Not Detected Ur Phencyclidine Scrn Not Detected Ur Amphetamines Screen Not Detected U Benzodiazepines Scrn Not Detected Urine Cocaine Screen Not Detected U Marijuana (THC) Screen Not Detected COVID-19 ([facility]) COVID-19 Path.To Com 07/21/22 07/21/22 07/21/22 05:29 05:29 11:03 MCV 86.5 MCH 28.1 MCHC 32.5 RDW 13.2 Plt Count 196 MPV 10.0 Immature Gran % (Auto) 0.8 H Neut % (Auto) 89.7 H Lymph % (Auto) 5.4 L [place] % (Auto) 2.6 Eos % (Auto) 1.3 Baso % (Auto) 0.2 Lymph # (Auto) 1.0 L [place] # (Auto) 0.5 Eos # (Auto) 0.2 Baso # (Auto) 0.0 Abs Immat Gran (auto) 0.15 H Absolute Neuts (auto) 16.3 H Absolute Nucleated RBC 0.000 Nucleated RBC % (auto) 0.0 Smear Tech's Comments Whole Blood PT Whole Blood INR D-Dimer High Sensitivty Anion Gap 19 Estim Creat Clear Calc 90.1 Estimated GFR > 60 POC Glucose 354 H* Random Glucose 265 H Lactic Acid Lactic Acid F/U @ 2Hr Calcium 8.6 Magnesium 2.0 Total Bilirubin AST ALT Alkaline Phosphatase Troponin I High Sens B-Natriuretic Peptide Total Protein Albumin Urine Color Urine Appearance Urine pH Ur Specific [place] Urine Protein Urine Glucose (UA) Urine Ketones Urine Blood Urine Nitrite Ur Leukocyte Esterase Urine RBC Urine WBC Ur Squamous Epith Cells Urine Bacteria Hyaline Casts Urine Opiates Screen Urine Fentanyl Screen Ur Barbiturates Screen Ur Phencyclidine Scrn Ur Amphetamines Screen U Benzodiazepines Scrn Urine Cocaine Screen U Marijuana (THC) Screen COVID-19 ([facility]) COVID-19 Clin Com Microbiology Microbiology Results: Microbiology 07/20/22 19:40 Urine Culture - Preliminary Urine Catheterized - Loja Catheter Gram negative charo 07/20/22 18:39 Blood Culture - Preliminary Blood - Venous Prelim: GNR Gram Stain only Assessment and Plan (1) Acute respiratory failure with hypoxia: Status: Acute (2) Sepsis: Status: Acute (3) Pyelonephritis: Status: Acute Plan This is a 62-year-old female with past medical history of TBI presents from correction with altered mental status or fever. On my interview patient is alert, oriented. sepsis secondary to GNR bacteremia and pyelonephritis met sepsis criteria with fever, tachycardia, leukocytosis continue IV abx urine culture growing gram negative rods blood cultures 1/2 growing GNR follow final cultures acute hypoxic respiratory failure secondary to acute COPD exacerbation patient with cough, increased sputum production, dyspnea, as well as hypoxic on room air no evidence of pneumonia on chest CT reports difficultly breathing due to rib pain from previous fall - no rib fractures seen on imaging continue Solu-Medrol, DuoNeb p.r.n. as well as breathing treatments -wean o2 as tolerated -incentive spirometry Thickening of esophagus seen on chest CT continue omeprazole outpatient GI follow up recommended diabetes hold metformin, januvia continue insulin restless leg syndrome continue ropinirole chronic pain continue tramadol depression anxiety continue antidepressant history of seizures continue keppra history of DVT continue Xarelto DVT prophylaxis: Xarelto attending - dr. fisher requires ongoing inpatient hospitalization for IV antibiotics for management of sepsis/ bacteremia/ pyelonephritis Quality Stroke Does the patient have a stroke diagnosis?: No VTE Prior VTE?: No VTE Risk Level:: Medical - moderate - high VTE Device Contraindication: Treatment Not Indicated VTE Drug Contraindication: N/A - Med Ordered
--- NOTE | 2022-07-21 13:14 | MHC.CM.PN ---
PATIENT IS LTC AT [facility] HCP ON FILE AND VERIFIED. SHE RELIES ON A WALKER AND A WHEELCHAIR AT FACILITY. COVID VAX X 3. AWAITING HER 2ND BOOSTER. PLAN IS RETURN TO FACILITY WHEN READY. IMM 07/21 IN CHART
[2022-07-21 15:45] LABS: Glucose, Whole Blood 415 mg/dL (60-115)
[2022-07-21] MEDS: Acetaminophen 325 MG TABLET 650 MG PO (17:36)
[2022-07-21] MEDS: cefTRIAXone sodium 1 GM in 0.9 % Sodium Chloride 50 ML IV (18:11)
[2022-07-21 20:05] LABS: Glucose, Whole Blood 438 mg/dL (60-115)
[2022-07-21] MEDS: Insulin Glargine,Hum.rec.anlog 100 UNIT/ML 10 ML VIAL 23 UNIT SUBCUT (20:58)
[2022-07-21] MEDS: Sennosides/Docusate Sodium TABLET 1 TAB PO (20:59)
[2022-07-21] MEDS: Metoclopramide HCl 10 MG TABLET PO (20:59)
[2022-07-21] MEDS: rOPINIRole HCL 1 MG TABLET 2 MG PO (20:59)
[2022-07-21] MEDS: traMADoL HCL 50 MG TABLET PO (21:06)
--- NOTE | 2022-07-21 23:05 | PC.NURSE ---
2030 [id number] notified ordered additional 5 units lispro along with 10 units per scale.
[2022-07-22] VITALS (10 sets, daily range): BP systolic 142–172; BP diastolic 62–96; PULSE 84–99; RESP 17–20; TEMP 36.1–36.8; O2SAT 90–99
[2022-07-22] MEDS: Levothyroxine Sodium 112 MCG TABLET PO (05:45)
[2022-07-22 07:51] LABS: Glucose, Whole Blood 295 mg/dL (60-115)
[2022-07-22] MEDS: Albuterol/Iprat 2.5/0.5MG 3 ML AMPUL.NEB INHALE ×4 (07:57→19:34)
[2022-07-22] MEDS: Gabapentin 100 MG CAPSULE PO ×3 (08:12→20:19)
[2022-07-22] MEDS: SITagliptin Phosphate 50 MG TABLET PO (08:12)
[2022-07-22] MEDS: Insulin Lispro 100 UNIT/ML 3 ML VIAL SUBCUT ×6 (08:12→20:18)
[2022-07-22] MEDS: levETIRAcetam 1,000 MG TABLET 1000 MG PO ×2 (08:12→20:19)
[2022-07-22] MEDS: Venlafaxine HCl ER 150 MG CAP.ER.24H PO (08:12)
[2022-07-22] MEDS: Rivaroxaban 20 MG TABLET PO (08:12)
[2022-07-22] MEDS: rOPINIRole HCL 1 MG TABLET PO ×2 (08:12→15:18)
[2022-07-22] MEDS: Atorvastatin Calcium 40 MG TABLET PO (08:12)
[2022-07-22] MEDS: Omeprazole 20 MG CAPSULE.DR PO (08:12)
[2022-07-22] MEDS: 0.9 % Sodium Chloride Flush 3 ML SYRINGE IVFLUSH ×3 (08:13→20:20)
[2022-07-22] MEDS: methylPREDNISolone Sod Succ 40 MG/ML VIAL IVPUSH ×2 (08:13→20:19)
[2022-07-22] MEDS: Nystatin Powder 15 GM BOTTLE 1 APPL TOPICAL (08:14)
--- NOTE | 2022-07-22 10:55 | P.PNIM_ITS ---
Subjective Subjective Date of Service: 07/22/22 Interval History: follow up for pyelonephritis, respiratory failure denies sob, cough, abdominal pain Review of Systems Review of Systems: Yes all other systems are reviewed and are negative Constitutional Constitutional: Denies chills and Denies fever(s) Cardiovascular Cardiovascular: Denies chest pain, Denies palpitations and Denies dyspnea Respiratory Respiratory: Denies cough and Denies dyspnea Gastrointestinal Gastrointestinal: Denies abdominal pain, Denies nausea and Denies vomiting Endocrine Endocrine: Denies palpitations Physical Exam Vital Signs: Vital Signs: Last Vital Signs Temp 98.3 F 07/22/22 07:30 Pulse 86 07/22/22 08:00 Resp 20 07/22/22 08:00 BP 172/96 H 07/22/22 07:30 Pulse Ox 96 07/22/22 07:30 O2 Del Method 07/22/22 07:30 O2 Flow Rate 2 07/22/22 07:30 BMI result Body Mass Index 31.4 Appearing in no acute distress lung sounds are clear to auscultation heart regular rate rhythm, clear S1, S2 positive bowel sounds, abdomen is soft, nontender neuro patient is alert x3, no focal deficits Objective Data Active Medications Acetaminophen (Acetaminophen 325 Mg Tablet) 650 mg PO Q6H PRN PRN Reason: Pain, Mild (Pain Scale 1-3) Last Admin: 07/21/22 17:36 Dose: 650 mg Documented By: HIRAM Albuterol/Ipratropium (Albuterol/Iprat 2.5/0.5mg 3 Ml Ampul.Neb) 3 ml INHALE RQ4H PRN PRN Reason: Shortness of Breath/Wheezing Albuterol/Ipratropium (Albuterol/Iprat 2.5/0.5mg 3 Ml Ampul.Neb) 3 ml INHALE RQ4H WHILE AWAKE [facility] Last Admin: 07/22/22 07:57 Dose: 3 ml Documented By: OMAR Atorvastatin Calcium (Atorvastatin Calcium 40 Mg Tablet) 40 mg PO DAILY [facility] Last Admin: 07/22/22 08:12 Dose: 40 mg Documented By: HIRAM Dextrose (Dextrose 50 % 25 Gm/50 Ml Syringe) 25 gm IVPUSH Q15M PRN; Protocol PRN Reason: per Hypoglycemia Standing Ord. Docusate Sodium (Docusate Sodium 100 Mg Capsule) 100 mg PO DAILY PRN PRN Reason: Constipation Gabapentin (Gabapentin 100 Mg Capsule) 100 mg PO TID [facility] Last Admin: 07/22/22 08:12 Dose: 100 mg Documented By: HIRAM Glucose (Glucose Gel 15 Gm Gel..Gram.) 15 gm PO Q15M PRN; Protocol PRN Reason: per Hypoglycemia Standing Ord. Ceftriaxone Sodium 1 gm/ (Sodium Chloride) 50 mls @ 100 mls/hr IV Q24H [facility] Last Infusion: 07/21/22 21:20 Dose: 0 mls/hr Documented By: EMERALD Insulin Glargine (Insulin Glargine,Hum.Rec.Anlog 100 Unit/Ml 10 Ml Vial) 23 unit SUBCUT BEDTIME [facility] Last Admin: 07/21/22 20:58 Dose: 23 unit Documented By: EMERALD Insulin Human Lispro (Insulin Lispro 100 Unit/Ml 3 Ml Vial) 0 unit SUBCUT QIDACHS [facility]; Protocol Last Admin: 07/22/22 08:12 Dose: 6 unit Documented By: HIRAM Levetiracetam (Levetiracetam 1,000 Mg Tablet) 1,000 mg PO BID [facility] Last Admin: 07/22/22 08:12 Dose: 1,000 mg Documented By: HIRAM Levothyroxine Sodium (Levothyroxine Sodium 112 Mcg Tablet) 112 mcg PO DAILY@0630 [facility] Last Admin: 07/22/22 05:45 Dose: 112 mcg Documented By: EMERALD Methylprednisolone Sodium Succinate (Methylprednisolone Sod Succ 40 Mg/Ml Vial) 40 mg IVPUSH Q12H [facility] Last Admin: 07/22/22 08:13 Dose: 40 mg Documented By: HIRAM Metoclopramide HCl (Metoclopramide Hcl 10 Mg Tablet) 10 mg PO BEDTIME [facility] Last Admin: 07/21/22 20:59 Dose: 10 mg Documented By: EMERALD Nystatin (Nystatin Powder 15 Gm Bottle) 1 appl TOPICAL DAILY [facility]; Protocol Last Admin: 07/22/22 08:14 Dose: 1 appl Documented By: HIRAM Omeprazole (Omeprazole 20 Mg Capsule.) 20 mg PO DAILY [facility] Last Admin: 07/22/22 08:12 Dose: 20 mg Documented By: HIRAM Ondansetron HCl (Ondansetron Hcl 4 Mg/2 Ml Vial) 4 mg IVPUSH Q8H PRN PRN Reason: Nausea and Vomiting Pharmacy Consult (Consult Rx Perform Med Rec) 1 each MISCELLANE ONCE PRN PRN Reason: Consult order Polyethylene Glycol (Polyethylene Glycol 3350 17 Gm Powd.Pack) 17 gm PO DAILY PRN PRN Reason: Constipation Rivaroxaban (Rivaroxaban 20 Mg Tablet) 20 mg PO DAILY [facility] Last Admin: 07/22/22 08:12 Dose: 20 mg Documented By: HIRAM Ropinirole HCl (Ropinirole Hcl 1 Mg Tablet) 1 mg PO BID@0900,1500 [facility] Last Admin: 07/22/22 08:12 Dose: 1 mg Documented By: HIRAM Ropinirole HCl (Ropinirole Hcl 1 Mg Tablet) 2 mg PO BEDTIME [facility] Last Admin: 07/21/22 20:59 Dose: 2 mg Documented By: EMERALD Senna/Docusate Sodium (Sennosides/Docusate Sodium Tablet) 1 tab PO BEDTIME [facility] Last Admin: 07/21/22 20:59 Dose: 1 tab Documented By: EMERALD Sitagliptin Phosphate (Sitagliptin Phosphate 50 Mg Tablet) 50 mg PO DAILY [facility] Last Admin: 07/22/22 08:12 Dose: 50 mg Documented By: HIRAM Sodium Chloride (0.9 % Sodium Chloride Flush 3 Ml Syringe) 3 ml IVFLUSH QSHIFT [facility] Last Admin: 07/22/22 08:13 Dose: 3 ml Documented By: HIRAM Tramadol HCl (Tramadol Hcl 50 Mg Tablet) 50 mg PO Q6H PRN PRN Reason: Pain, Severe (Pain Scale 7-10) Last Admin: 07/21/22 21:06 Dose: 50 mg Documented By: EMERALD Venlafaxine HCl (Venlafaxine Hcl Er 150 Mg Cap.Er.24h) 150 mg PO DAILY [facility] Last Admin: 07/22/22 08:12 Dose: 150 mg Documented By: HIRAM Labs CBC & Chem 7: 07/21/22 05:29 07/21/22 05:29 Labs: Laboratory Results - last 24 hr 07/21/22 07/21/22 07/21/22 11:03 15:29 19:49 POC Glucose 354 H* 415 H* 438 H* 07/22/22 07:30 POC Glucose 295 H Microbiology Microbiology Results: Microbiology 07/20/22 18:39 Blood Culture - Preliminary Blood - Venous Gram negative charo 07/20/22 19:40 Urine Culture - Final Urine Catheterized - Loja Catheter Escherichia coli 07/20/22 19:08 Blood Culture - Preliminary Blood - Venous No growth after 24 hours. Assessment and Plan (1) Acute respiratory failure with hypoxia: Status: Acute (2) Sepsis: Status: Acute (3) Pyelonephritis: Status: Acute Plan This is a 62-year-old female with past medical history of TBI presents from longterm with altered mental status or fever. On my interview patient is alert, oriented. Sepsis secondary to Ecoli bacteremia and pyelonephritis. Sepsis resolved Rocephin urine culture 1 out of 2 E coli, blood culture still pending follow final cultures Acute hypoxic respiratory failure secondary to acute COPD exacerbation patient with cough, increased sputum production, dyspnea no evidence of pneumonia on chest CT reports difficultly breathing due to rib pain from previous fall - no rib fractures seen on imaging continue Solu-Medrol, DuoNeb p.r.n. as well as breathing treatments wean o2 as tolerated incentive spirometry mucinex Thickening of esophagus seen on chest CT continue omeprazole outpatient GI follow up recommended diabetes SS restless leg syndrome continue ropinirole chronic pain continue tramadol depression anxiety continue antidepressant history of seizures continue keppra history of DVT continue Xarelto DVT prophylaxis: Xarelto attending - dr. fisher requires ongoing inpatient hospitalization for IV antibiotics for management of sepsis/ bacteremia/ pyelonephritis Quality Stroke Does the patient have a stroke diagnosis?: No VTE Prior VTE?: No VTE Risk Level:: Medical - moderate - high VTE Device Contraindication: Treatment Not Indicated VTE Drug Contraindication: N/A - Med Ordered
[2022-07-22 11:34] LABS: Glucose, Whole Blood 437 mg/dL (60-115)
[2022-07-22] MEDS: guaiFENesin LA 600 MG TAB.ER.12H PO ×2 (11:56→20:19)
[2022-07-22 16:01] LABS: Glucose, Whole Blood 476 mg/dL (60-115)
[2022-07-22] MEDS: cefTRIAXone sodium 1 GM in 0.9 % Sodium Chloride 50 ML IV (18:37)
[2022-07-22 19:59] LABS: Glucose, Whole Blood 364 mg/dL (60-115)
[2022-07-22] MEDS: Insulin Glargine,Hum.rec.anlog 100 UNIT/ML 10 ML VIAL 30 UNIT SUBCUT (20:19)
[2022-07-22] MEDS: Metoclopramide HCl 10 MG TABLET PO (20:19)
[2022-07-22] MEDS: rOPINIRole HCL 1 MG TABLET 2 MG PO (20:19)
[2022-07-22] MEDS: Sennosides/Docusate Sodium TABLET 1 TAB PO (20:19)
[2022-07-22] MEDS: Acetaminophen 325 MG TABLET 650 MG PO (20:20)
[2022-07-23] VITALS (9 sets, daily range): BP systolic 126–152; BP diastolic 72–92; PULSE 77–87; RESP 16–20; TEMP 36.1–36.9; O2SAT 92–96
[2022-07-23] MEDS: Levothyroxine Sodium 112 MCG TABLET PO (05:30)
[2022-07-23 08:06] LABS: Glucose, Whole Blood 238 mg/dL (60-115)
[2022-07-23] MEDS: Albuterol/Iprat 2.5/0.5MG 3 ML AMPUL.NEB INHALE ×3 (08:20→15:17)
[2022-07-23] MEDS: rOPINIRole HCL 1 MG TABLET PO ×2 (08:24→15:18)
[2022-07-23] MEDS: guaiFENesin LA 600 MG TAB.ER.12H PO (08:24)
[2022-07-23] MEDS: Rivaroxaban 20 MG TABLET PO (08:24)
[2022-07-23] MEDS: methylPREDNISolone Sod Succ 40 MG/ML VIAL IVPUSH (08:24)
[2022-07-23] MEDS: Gabapentin 100 MG CAPSULE PO ×2 (08:24→15:18)
[2022-07-23] MEDS: levETIRAcetam 1,000 MG TABLET 1000 MG PO (08:24)
[2022-07-23] MEDS: Atorvastatin Calcium 40 MG TABLET PO (08:24)
[2022-07-23] MEDS: SITagliptin Phosphate 50 MG TABLET PO (08:24)
[2022-07-23] MEDS: Venlafaxine HCl ER 150 MG CAP.ER.24H PO (08:24)
[2022-07-23] MEDS: Omeprazole 20 MG CAPSULE.DR PO (08:24)
[2022-07-23] MEDS: Insulin Lispro 100 UNIT/ML 3 ML VIAL SUBCUT ×6 (08:25→17:09)
[2022-07-23] MEDS: 0.9 % Sodium Chloride Flush 3 ML SYRINGE IVFLUSH (08:25)
[2022-07-23] MEDS: Nystatin Powder 15 GM BOTTLE 1 APPL TOPICAL (08:26)
[2022-07-23] MEDS: Docusate Sodium 100 MG CAPSULE PO (08:49)
[2022-07-23] MEDS: polyethylene glycoL 3350 17 GM POWD.PACK PO (08:49)
[2022-07-23 11:48] LABS: Glucose, Whole Blood 326 mg/dL (60-115)
--- NOTE | 2022-07-23 13:35 | PC.NURSE ---
Loja discontinued at this time.
--- NOTE | 2022-07-23 14:45 | MHC.CM.PN ---
PT WILL DC BACK TO [facility] AT 1700 HOURS CM ATTEMPTED TO CONTACT HER HCP, MISA SARABIA AT THE NUMBER ON FILE [phone] THE CALL WENT TO AND THE RECORDED MESSAGE INDICATED THE PHONE NUMBER BELONGS TO JUDY KNOWLSON NO MESSAGE LEFT
--- NOTE | 2022-07-23 15:57 | P.DS_ITS ---
DS: Providers Provider Date of Service: 07/23/22 Date of admission: 07/21/22 02:56 Primary care physician: Unknown Physician Attending physician on discharge: [facility] Discharging clinician: Minerva Fu DS: Diagnosis Discharge Diagnosis (1) Acute respiratory failure with hypoxia: Status: Acute (2) Sepsis: Status: Acute (3) Pyelonephritis: Status: Acute DS: Summary Hospital Course Hospital Course: HP as per medical provider This is a 62-year-old female with past medical history of hypothyroidism, TBI, hypotension, anxiety, diabetes with diabetic neuropathy, presents the emergency department from custodial facility with reports of altered mental status, fever.? Patient currently alert, oriented to self and place.? Patient tells me that she came into the hospital due to urinary urgency and frequency as well as suprapubic and flank pain bilaterally.? All her symptoms started about 1 day prior.? She reports chills, but unsure if she had any fever senior living.? Denies any chest pain, no shortness of breath.?Patient does report having a file 2 days prior with no loss of consciousness.? Patient reports on falling she hurt the right side of her ribcage, and therefore now she has difficulty with taking deep breaths.? She is complaining of a cough, increased sputum production.? She denies any orthopnea and no PND.? Denies any diarrhea or constipation, no lower extremity edema.?Per senior living report patient was started on cefuroxime the day prior at the senior living. On initial arrival to the ED patient found to have a fever of 104.4, heart rate of 134, respiratory rate of 24, blood pressure 143/51 Patient also noted to drop her oxygen to 89% on room air Labs are significant for WBC count of 12.4, lactic acid of 2.2, UA positive for leukocyte Estrace, urine nitrites, WBC Chest chest, abdomen, pelvis CT shows bladder wall thickening and hyperenhancement with associated urothelial hyperenhancement in the right ureter and renal pelvis most concerning for cystitis with an ascending right urinary tract infection.? No acute pulmonary findings. Esophagitis was also seen on chest CT . Sepsis secondary to Ecoli bacteremia and pyelonephritis. Sepsis resolved Treated with Rocephin urine and blood cx ecoli ceftin for 14 days Acute hypoxic respiratory failure secondary to acute COPD exacerbation. Resolved patient with cough, increased sputum production, dyspnea no evidence of pneumonia on chest CT reports difficultly breathing due to rib pain from previous fall - no rib fractures seen on imaging Treated with Solu-Medrol, DuoNeb p.r.n. as well as breathing treatments incentive spirometry mucinex 5 more days of prednisone Thickening of esophagus seen on chest CT continue omeprazole outpatient GI follow up recommended diabetes continue home medications restless leg syndrome continue ropinirole chronic pain continue tramadol depression anxiety continue antidepressant history of seizures continue keppra history of DVT continue Xarelto Time Spent with Patient Time attestation: Total time spent providing and/or coordinating discharge services: Discharge coordination time: Greater than 30 minutes Quality: Safe Use of Opioids Does Pt have an Active Cancer Diagnosis on the Problem List?: No Quality: Stroke Does the patient have a stroke diagnosis?: No Physical Exam Vital Signs: Vital Signs: Last Vital Signs Temp 98.3 F 07/23/22 15:05 Pulse 77 07/23/22 15:17 Resp 20 07/23/22 15:17 BP 134/72 07/23/22 15:05 Pulse Ox 96 07/23/22 15:05 O2 Del Method 07/23/22 15:05 O2 Flow Rate 2 07/23/22 12:00 BMI result Body Mass Index 31.4 Appearing in no acute distress head is normocephalic atraumatic eyes pupils are PERRLA sclera is anicteric mouth throat mucous membranes are intact and moist neck is supple no lymphadenopathy, no JVD noted lung sounds are clear to auscultation heart regular rate rhythm, clear S1, S2 positive bowel sounds, abdomen is soft, nontender neuro patient is alert x3, no focal deficits Baseline tremors DS: Data Data Completed and Pending Labs on day of discharge: Laboratory Results - last 24 hr 07/20/22 07/20/22 07/22/22 18:39 18:39 15:22 POC Glucose 476 H* Lactic Acid 2.2 H* Troponin I High Sens 7.0 07/22/22 07/23/22 07/23/22 19:25 07:32 11: POC Glucose 364 H* 238 H 326 H Lactic Acid Troponin I High Sens Preliminary micro results at discharge 07/20/22 19:08 Blood Culture - Preliminary Blood - Venous No growth after 48 hours. Discharge Plan Discharge Anticipated Discharge Date/Time: 07/23/22 15:40 Patient Disposition: Xfer [facility] Discharge Diagnosis: sepsis secondary to E coli bacteremia and pyelonephritis acute hypoxic respiratory failure secondary to acute COPD exacerbation Referrals: [facility] [Outside] - 1 Week Britt Mcdonnell MD [Physician] - 1 Week Discharge Medications: New cefuroxime axetil 500 mg tablet 500 mg PO Q12H Qty: 28 0RF prednisone 10 mg tablet 10 mg PO DAILY Qty: 20 0RF Continued levetiracetam 1,000 mg tablet 1,000 mg PO BID 30 Days Qty: 60 2RF ropinirole 2 mg tablet See Rx Instructions PO BID 90 Days Qty: 45 3RF Rx Instructions: Half a tablet morning and afternoon, 1 tablet at night (DME) pen needle, diabetic [BD Ultra-Fine Destiny Pen Needle] 32 gauge x 5/32 needle See Rx Instructions .ROUTE Rx Instructions: 4 times a day insulin lispro [Humalog KwikPen Insulin] 100 unit/mL insulin pen 2 - 14 unit subcut TID Qty: 15 0RF (DME) blood-glucose meter [OneTouch Verio Flex meter] Mis MISCELLANEOUS venlafaxine 150 mg capsule,extended release 24hr 1 cap PO DAILY (DME) lancets [OneTouch UltraSoft Lancets] Misc MISCELLANEOUS omeprazole 20 mg capsule,delayed release(DR/EC) 1 cap PO DAILY rosuvastatin 10 mg tablet 1 tab PO BEDTIME Xarelto 20 mg tablet 1 tab PO DAILY nystatin [Nyamyc] 100,000 unit/gram powder 1 appl topical DAILY Januvia 50 mg tablet 1 tab PO DAILY Combivent Respimat 20-100 mcg/actuation mist 1 puff inhalation AC insulin glargine-yfgn 100 unit/mL (3 mL) insulin pen 23 unit subcut BEDTIME (DME) Pull-ups Small to medium See Rx Instructions .Route .MEDSUPPLY Qty: 100 0RF Rx Instructions: As directed tramadol 50 mg tablet 50 mg PO Q6H PRN (Reason: Pain) metformin 500 mg tablet 500 mg PO DAILY metoclopramide HCl 10 mg tablet 10 mg PO QIDACHS metoclopramide HCl 10 mg tablet 10 mg PO BEDTIME levothyroxine 112 mcg tablet 112 mcg PO DAILY gabapentin 100 mg capsule 100 mg PO TID Discontinued cefuroxime axetil 250 mg tablet 1 tab PO BID Discharge Orders: Discharge Order (Routine); Ordered 07/23/22 Ordered By: Minerva Fu Diet: Advance to usual diet Activity on Discharge: As tolerated Stand Alone Forms: Patient Portal Discharge page Care Plan Goals: complete resolution of symptoms Health Concerns: sepsis secondary to E coli bacteremia and pyelonephritis acute hypoxic respiratory failure secondary to acute COPD exacerbation Plan of Treatment: Follow-up with your primary care provider Take all medications as prescribed Assessment: see discharge summary
[2022-07-23 16:46] LABS: Glucose, Whole Blood 394 mg/dL (60-115)
[2022-07-23 17:07] LABS: Glucose, Whole Blood 372 mg/dL (60-115)
== END 2022-07-23 17:21 | DRG 871 ==
LOC: HO.ED 19:32 → HO.EDOVER 07-21 03:05 → HO.S3 07-21 05:01
PROVIDERS: Physician Assistant; Physician Assistant Medical; Admitting Provider Internal Medicine; Emergency Provider Emergency Medicine; PCP Internal Medicine; Visit Provider Nurse Practitioner Acute Care
DX: A41.51 Sepsis due to Escherichia coli [E. coli] (principal); J96.01 Acute respiratory failure with hypoxia; J44.1 Chronic obstructive pulmonary disease with (acute) exacerbation; N13.6 Pyonephrosis; F41.1 Generalized anxiety disorder; G89.21 Chronic pain due to trauma; E78.5 Hyperlipidemia, unspecified; E11.42 Type 2 diabetes mellitus with diabetic polyneuropathy; G25.81 Restless legs syndrome; G40.909 Epilepsy, unspecified, not intractable, without status epilepticus; F32.A Depression, unspecified; E03.9 Hypothyroidism, unspecified; Z86.718 Personal history of other venous thrombosis and embolism; F17.210 Nicotine dependence, cigarettes, uncomplicated; Z20.822 Contact with and (suspected) exposure to COVID-19; Z87.820 Personal history of traumatic brain injury; Z87.440 Personal history of urinary (tract) infections; Z71.6 Tobacco abuse counseling; Z88.1 Allergy status to other antibiotic agents; Z88.8 Allergy status to other drugs, medicaments and biological substances; Z79.4 Long term (current) use of insulin; Z79.01 Long term (current) use of anticoagulants; Z79.52 Long term (current) use of systemic steroids; Z79.84 Long term (current) use of oral hypoglycemic drugs; Z79.899 Other long term (current) drug therapy
CPT/HCPCS: 36415; 70450; 70496; 70498; 71260; 74177; 80048; 80053; 80307; 81001; 82947; 83605; 83735; 83880; 84484; 85025; 85379; 85610; 87040; 87077; 87086; 87088; 87186; 87205; 87635; 93005; 94640; 99285; C1758; J0696; J2405; J2920; Q9967

== ENCOUNTER → 2022-09-04 11:22 | Outpatient (BNVA) | payer MEDICARE, MEDICAID, SELFPAY | PROVIDERS: PCP Internal Medicine; Visit Provider Internal Medicine Gastroenterology | DX: R11.11 Vomiting without nausea (principal); R19.7 Diarrhea, unspecified; E11.65 Type 2 diabetes mellitus with hyperglycemia; E11.42 Type 2 diabetes mellitus with diabetic polyneuropathy; E11.43 Type 2 diabetes mellitus with diabetic autonomic (poly)neuropathy; K31.84 Gastroparesis; F17.210 Nicotine dependence, cigarettes, uncomplicated | CPT/HCPCS: 99212 ==

== ENCOUNTER 2022-10-12 13:06 | Day surgery (SDC) | payer MEDICARE, MEDICAID, SELFPAY ==
[2022-10-06 13:57] VITALS: BMI 27.6
--- NOTE | 2022-10-12 13:23 | P.HPSUR_ITS ---
Pre-Procedural Eval Section A Date of Service: 10/12/22 Section B Chief Complaint: Change in bowel habit Details of Present Illness: dysphagia and altered bowel habits Relevant Family History (Specify if Yes): No Relevant Social History: Tobacco Use Present Medications: see Short Stay Collaborative assessment Medical History: Significant History (nxiety, generalized Chronic pain after traumatic injury Depression Diabetes Diabetic neuropathy Gait disturbance Gastroparesis History of DVT (deep vein thrombosis) Hyperlipidemia Hypothyroidism Memory deficit Nausea & vomiting Pancreatitis Pancreatitis, chronic Postural hypotension Restless leg syn) History of Previous Operations: Relevant previous surgery/procedure and date(s) (H/O breast surgery H/O thyroidectomy History of appendectomy History of esophagogastroduodenoscopy (EGD) Hx of section Hx of cholecystectomy Hx of colonoscopy Hx of tubal ligation) Allergies: Allergies Allergy/AdvReac Type Severity Reaction Status Date / Time buprenorphine [From Butrans] Allergy Intermediate muscle Verified 09/04/22 11:42 spasm & Vomiting ciprofloxacin [From CIPRO] Allergy Unknown UNKNOWN Verified 09/04/22 11:42 clarithromycin [From Biaxin] Allergy Unknown unknown Verified 09/04/22 11:42 doxycycline Allergy Unknown Unknown Verified 09/04/22 11:42 metformin AdvReac Intermediate abdominal Verified 09/04/22 11:42 cramping/vomiting/diarrhea (taking once/day) Review of Systems Sugical H&P ROS: Negative: Constitution, Cardiovascular, Respiratory, Neurological, Psychiatric, Hem-Onc, Allergic/Immunologic, Gastrointestinal, Genitourinary, Musculoskeletal, Integumentary, Endocrine and Eyes/Ears/Nose/Throat Exam Surgical H&P Exam: Normal: HEENT, Normal: Heart, Normal: Lungs, Normal: Extre mities, Normal: Abdomen, Normal: Skin and Normal: Neurological Plan Diagnosis/Plan: Unchanged I have reviewed the history and physical and performed a pertinent physical examination on my patient. No changes have occurred unless specified. Time Spent With Patient Time: Total time managing care of this patient today ____ minutes.
[2022-10-12] MEDS: Lactated Ringers 1,000 ML 50 ML IVCONT (13:41)
--- NOTE | 2022-10-12 13:57 | HO.ANESPROP2 ---
HPI - Anesthesia Eval Consult details Narrative: 62F for EGD and colonoscopy TBI , seizures , last seizure 1 and a half year ago , frequent falls , tremor , COPD h/o DVT PMFSH Active Problems Active Problems: All Active Problems (Updated 08/10/22 @ 13:10 by Cami Avendano RN) Establishing care with new doctor, encounter for (Acute) Uncontrolled diabetes mellitus (Acute) Urine incontinence (Acute) Constipation by delayed colonic transit (Acute) Chronic GERD (Acute) Recurrent vomiting (Acute) Dizziness (Acute) Lipid disorder (Acute) Difficulty sleeping (Acute) Hyponatremia (Acute) Encounter for general adult medical examination with abnormal findings (Acute) Breast screening (Acute) Routine gynecological examination (Acute) Fracture of distal end of right fibula (Acute) Closed fracture of fibula with routine healing (Acute) Left foot pain (Acute) Postural hypotension (Acute) Hospital discharge follow-up (Acute) Nausea vomiting and diarrhea (Acute) Medication side effect (Acute) Severe depression (Acute) Abdominal cramping (Acute) Kidney disorder (Acute) Bacteremia (Acute) Depression (Acute) Nausea & vomiting (Acute) Hyperlipidemia (Acute) Type 2 diabetes mellitus with diabetic polyneuropathy (Acute) Past Medical History Medical History Anxiety, generalized Chronic pain after traumatic injury Depression Diabetes Diabetic neuropathy Gait disturbance Gastroparesis History of DVT (deep vein thrombosis) Hyperlipidemia Hypothyroidism Memory deficit Nausea & vomiting Pancreatitis Pancreatitis, chronic Postural hypotension Restless leg syndrome Seizure disorder TBI (traumatic brain injury) Traumatic brain injury Type 2 diabetes mellitus with diabetic polyneuropathy Family History Family History Mother Diabetes Stroke Heart attack Dementia Father Stroke Heart attack Brother Diabetes Sister Diabetes Other Mental health disorder Substance use disorder Family history of problems with anesthesia: No Surgical History Surgical History H/O breast surgery H/O thyroidectomy History of appendectomy History of esophagogastroduodenoscopy (EGD) Hx of section Hx of cholecystectomy Hx of colonoscopy Hx of tubal ligation History of Problems with Anesthesia: Yes (PONV) Social History Social History Household Members: Other Household Members Other:: [facility] Housing: Senior Living Alcohol intake: never Patient Tobacco Use Status: Current everyday Tobacco user Tobacco use type: Cigarette Cigarettes Per Day: 6 Years Smoked: 30 Are you DNR?: No Advance Directives: No Advance Directives Information Provided: Yes Nutrition Risks: No Nutritional Risk service: No Current occupational status: unemployed Meds Allergies Allergy/AdvReac Type Severity Reaction Status Date / Time buprenorphine [From Butrans] Allergy Intermediate muscle Verified 10/12/22 14:00 spasm & Vomiting ciprofloxacin [From CIPRO] Allergy Unknown UNKNOWN Verified 10/12/22 14:00 clarithromycin [From Biaxin] Allergy Unknown unknown Verified 10/12/22 14:00 doxycycline Allergy Unknown Unknown Verified 10/12/22 14:00 Active Medications: Current Medications Lactated Ringer's (Lr) 1,000 mls @ 50 mls/hr IVCONT .Q20H ALEKSANDER Last Admin: 10/12/22 13:41 Dose: 50 mls/hr Home Medications Medication Instructions Recorded Confirmed Last Taken Type blood-glucose meter (OneTouch 11/14/20 07/20/22 Unknown History Verio Flex Meter) lancets (OneTouch UltraSoft 11/14/20 07/20/22 Unknown History Lancets) omeprazole 20 mg capsule,delayed 1 cap PO QPM 11/14/20 10/06/22 Unknown History release rosuvastatin 10 mg tablet 1 tab PO BEDTIME 11/14/20 10/06/22 Unknown History venlafaxine 150 mg 1 cap PO DAILY 11/14/20 10/06/22 Unknown History capsule,extended release 24 hr pen needle, diabetic 32 gauge x 06/01/21 07/20/22 Unknown History (BD Ultra-Fine Destiny Pen Needle) gabapentin 100 mg capsule 100 mg PO TID 10/31/21 10/06/22 Unknown History levothyroxine 112 mcg tablet 112 mcg PO DAILY 10/31/21 10/06/22 Unknown History metformin 500 mg tablet 500 mg PO QPM 10/31/21 10/06/22 Unknown History metoclopramide HCl 10 mg tablet 10 mg PO BEDTIME 10/31/21 08/11/22 Unknown History metoclopramide HCl 10 mg tablet 10 mg PO QIDACHS 10/31/21 10/06/22 Unknown History tramadol 50 mg tablet 50 mg PO Q6H PRN Pain 10/31/21 10/06/22 Unknown History insulin glargine-yfgn 100 unit/mL 23 unit subcut BEDTIME 07/20/22 10/06/22 Unknown History (3 mL) subcutaneous pen ipratropium 20 mcg-albuterol 100 2 puff inhalation Q6H PRN Wheezing 07/20/22 10/06/22 Unknown History mcg/actuation mist for inhalation (Combivent Respimat) nystatin 100,000 unit/gram topical 1 appl topical DAILY 07/20/22 10/06/22 Unknown History powder (Nyamyc) sitagliptin phosphate 50 mg tablet 1 tab PO DAILY 07/20/22 10/06/22 Unknown History (Odell) acetaminophen 650 mg 650 mg PO Q8H PRN Pain 08/11/22 10/06/22 Unknown History tablet,extended release docusate sodium 100 mg capsule 100 mg PO BID 08/11/22 10/06/22 Unknown History loratadine 10 mg tablet (Claritin) 10 mg PO DAILY 08/11/22 10/06/22 Unknown History melatonin 3 mg tablet 3 mg PO BEDTIME 08/11/22 10/06/22 Unknown History ondansetron HCl 4 mg tablet 1 tab PO Q4H PRN Nausea 08/11/22 10/06/22 Unknown History rivaroxaban 10 mg tablet (Xarelto) 1 tab PO DAILY 08/11/22 10/06/22 10/09/22 History sennosides 8.6 mg tablet (senna) 17.2 mg PO BEDTIME 08/11/22 10/06/22 Unknown History ropinirole 1 mg tablet 2 mg PO BID 09/04/22 10/06/22 Unknown History lisinopril 5 mg tablet 1 tab PO DAILY 10/12/22 10/12/22 Unknown History Exam Exam Date and Time: October 12, 2022 1357 Height,Weight and Vital Signs: Height 5 ft 5 in Weight 75.387 kg Airway Mallampati Class: III TM Dist: >3cm Neck ROM: Full Loose/Missing/Broken Teeth: Yes (Chipped multiple , poor dentition globally ) Heart: S1,S2 Lungs: distant breath sounds Assessment and Plan Assessment Anesthesia Assessment: Anesthesia Plan Discussed and Chart Reviewed Final Anesthetic Review Family History of Problems with Anesthesia: No History of Problems with Anesthesia: Yes (PONV) NPO: Yes ASA Class: III Final Preanesthetic Review: Meds/Allgs Chart Reviewed, Consent Obtained/Reviewed and Anes Risks/Benef Reviewed Patient Risk: High Procedure Risk: Intermediate Anesthetic Plan Anesthetic Plan: MAC: Disposition: Standard PACU
--- NOTE | 2022-10-12 14:01 | W.PM.OPN ---
Operative Note Operative Note Date of Service: 10/12/22 Narrative: Operative Information Procedure Description: EGD, Colonoscopy Indication: dysphagia, diarrhea Anesthesia: MAC FLEXIBLE TRANSORAL UPPER GASTROINTESTINAL ENDOSCOPY AND COLONOSCOPY PROCEDURE NOTE UPPER ENDOSCOPY Consent: Indications for the procedure and potential complications of bleeding, perforation, reaction to medications and missed diagnosis were discussed with the patient and informed consent was obtained. Instrument: Olympus GIF H 190 J mid size upper endoscope Monitoring: Vital signs and clinical assessment, continuous EKG monitoring, Pulse oximetry, Carbon Dioxide monitoring and blood pressure monitoring were done throughout the procedure. Procedure: The patient was placed in the left lateral decubitis position and pre-procedure medications were administered and a bite block was placed. The endoscope was inserted into the mouth and advanced under direct vision to the third part of duodenum. A careful inspection was made as the upper endoscope was withdrawn including a retroflexed examination of the proximal stomach; Findings and interventions are described below. Findings: Larynx:normal Esophagus: GE junction at 38 cm, diaphragm hiatus at 38 cm, bogginess and erythema, swelling at GEJ, bx taken, after the LES and UEs were dilated with balloon to 19 mm, no tears seen Stomach: Patchy erythema. Biopsies were obtained. Grade 2 flap valve on retroflexed examination of the cardia. Duodenum: Mild bulbar duodenitis, bx taken Intervention: Biopsies as noted above, balloon dilation COLONOSCOPY Instrument: Olympus variable stiffness pediatric scope 190L Colonoscopy Monitoring: Vital signs and clinical assessment, continuous EKG monitoring, Pulse oximetry, Carbon Dioxide monitoring and blood pressure monitoring were done throughout the procedure. Colon withdrawal time was 8 minutes. Procedure: The patient was placed in the left lateral decubitis position and pre-procedure medications were administered. After a digital rectal examination of the ano-rectum, the video colonoscope was inserted into the rectum and advanced through the colon to the cecum/TI. The colonoscope was slowly withdrawn in a retrograde panoramic fashion and the colon mucosa was carefully examined including a retroflexed view of the rectum. Findings and interventions are described below. Procedure Difficulty: moderate Findings: Terminal Ileum- unable to intubate due to looping Cecum:normal Ascending Colon: 10 mm sessile polyp removed with cold snare and unable to retrieve Transverse Colon -normal Descending Colon:normal Sigmoid Colon: normal Rectum: Retroflexion with small internal hemorrhoids, grade I, 10-12 mm sessile polyp removed with cold snare Anorectum - normal Colon preparation: Arminto Bowel Preparation Scale Right colon; 1-2 Transverse colon: 1-2 Left colon; 1 (0 = Unprepared colon segment with mucosa not seen due to solid stool that cannot be cleared. 1 = Portion of mucosa of the colon segment seen, but other areas of the colon segment not well seen due to staining, residual stool and/or opaque liquid. 2 = Minor amount of residual staining, small fragments of stool and/or opaque liquid, but mucosa of colon segment seen well. 3 = Entire mucosa of colon segment seen well with no residual staining, small fragments of stool or opaque liquid) Impression and Post Procedure Diagnosis: Endoscopy Findings: esophagitis gastritis duodenitis Colonoscopy Findings: polyps internal hemorrhoids Plan: Await Pathology results Repeat Colonoscopy in 6-12 months or earlier if clinically indicated High fiber diet leaflet avoid straining at stool, epsom salts and sitz bath, anusol supps or cream restart xarelto 10/14/22 consider increasing dose of omeprazole Above findings were reviewed with the patient and relevant handouts were provided if indicated.
[2022-10-12 14:07] LABS: Glucose, Whole Blood 183 mg/dL (60-115)
[2022-10-12 14:14] VITALS: BP 135/80; PULSE 89; RESP 18; TEMP 36.7; O2SAT 96
--- NOTE | 2022-10-12 14:15 | PC.NURSE ---
verified with floor nurse at [facility] (joshua) that patient did stop xarelto three days. has been npo and no medications were given this morning.
[2022-10-12 15:37] VITALS: BP 101/51; PULSE 92; RESP 20; TEMP 37.2; O2SAT 99
[2022-10-12 15:52] VITALS: BP 129/61; PULSE 87; RESP 19; O2SAT 99
[2022-10-12 16:07] VITALS: BP 132/56; PULSE 83; RESP 16; O2SAT 99
[2022-10-12 16:22] VITALS: BP 139/63; PULSE 88; RESP 16; TEMP 36.3; O2SAT 99
== END 2022-10-12 16:44 | disposition home or self-care (01) ==
PROVIDERS: PCP Internal Medicine; Visit Provider Internal Medicine Gastroenterology
PROC: (CPT 45385; principal; 2022-10-12 14:30)
DX: R19.4 Change in bowel habit (principal); R19.7 Diarrhea, unspecified; K63.5 Polyp of colon; D12.8 Benign neoplasm of rectum; K64.0 First degree hemorrhoids; R13.10 Dysphagia, unspecified; K20.80 Other esophagitis without bleeding; K29.50 Unspecified chronic gastritis without bleeding; K29.80 Duodenitis without bleeding; K44.9 Diaphragmatic hernia without obstruction or gangrene; K31.84 Gastroparesis; K86.1 Other chronic pancreatitis; G40.909 Epilepsy, unspecified, not intractable, without status epilepticus; I95.1 Orthostatic hypotension; R26.9 Unspecified abnormalities of gait and mobility; E78.5 Hyperlipidemia, unspecified; E11.42 Type 2 diabetes mellitus with diabetic polyneuropathy; Z79.4 Long term (current) use of insulin; Z79.899 Other long term (current) drug therapy; Z88.1 Allergy status to other antibiotic agents; Z88.8 Allergy status to other drugs, medicaments and biological substances; Z87.820 Personal history of traumatic brain injury; Z86.718 Personal history of other venous thrombosis and embolism; Z90.49 Acquired absence of other specified parts of digestive tract; F17.210 Nicotine dependence, cigarettes, uncomplicated
CPT/HCPCS: 45385; 43249; 43239; 82947; 88305; 88312; 88342; C1726

== ENCOUNTER → 2022-11-27 12:23 | Outpatient (BNVA) | payer MEDICARE, MEDICAID, SELFPAY | PROVIDERS: PCP Internal Medicine; Visit Provider Internal Medicine Gastroenterology | DX: R13.19 Other dysphagia (principal); K20.90 Esophagitis, unspecified without bleeding; R11.10 Vomiting, unspecified; D36.9 Benign neoplasm, unspecified site | CPT/HCPCS: 99212 ==

== ENCOUNTER 2023-05-28 12:42 | Outpatient (AMB) | payer MEDICARE, MEDICAID, SELFPAY ==
--- NOTE | 2023-05-28 12:51 | A.OFFVIS_ITS ---
Intake Vital Signs 05/28/23 12:56 Height 5 ft 5 in Weight 202 lb BMI 33.6 BP 114/58 L Blood Pressure Location Lt brachial Position Sitting Pulse 75 Intake Visit Reasons: 6 month follow up Intake Note: Deepali presents in the office as a 6 month follow up. CC: She is not having any concerns today! Allergies buprenorphine [From Butrans] Allergy (Intermediate, Verified 05/28/23 12:54) muscle spasm & Vomiting ciprofloxacin [From CIPRO] Allergy (Unknown, Verified 05/28/23 12:54) UNKNOWN clarithromycin [From Biaxin] Allergy (Unknown, Verified 05/28/23 12:54) unknown doxycycline Allergy (Unknown, Verified 05/28/23 12:54) Unknown HPI 6 month follow up HPI Details 63 yr old f here for f/u RECAP: she had been having weight loss attributes to bouts of alternating constipation and diarrhea (last 9 months has been more diarrheal--water like) and vomiting, no bad smell but floats and stick to the kelly no blood in stool,,no melena she has no warning for the vomiting, v sudden usu with food after she gets food getting stuck in the epigastric area she has been taking reglan for about 1 yr and feels maybe helped 20% appetite is poor she had epigastric pain for 1 yr with tenderness food gets stuck in lower chest as well chewing is an issue as well she can walk short distance she is in [facility] for [facility] due to falls she does have seizures and black outs she takes rivaroxiban for hx of DVT, aslo on tramadol for pain BID She was scheduled for EGD and colonoscopy but due to mix up at [facility] this did not happen eventually it was done with findings below: EGD/Keavy: 10/19 Endoscopy Findings: esophagitis gastritis duodenitis Colonoscopy Findings: polyps internal hemorrhoids INTERIM: She remains in a wheelchair swallowing is better, once in a while she has golf ball feeling but short lived constipation is worse again, had been good for a while taking colace, and miralax, senna, she has tried linaclotide in past, not sure why it was stopped still taking PPI BID still on eliquis and tramadol\--no other pain meds EXAM: GENERAL: The patient is relaxed, in wheelchair VITAL SIGNS:see workflow HEENT: Nonicteric sclerae, PERRLA, EOMI. Oropharynx clear. Moist mucous membranes. Conjunctivae appear well perfused. No thyroid mass. CHEST: Chest wall is nontender. HEART: Regular rate and rhythm without murmurs. LUNGS: Clear to auscultation bilaterally. ABDOMEN: Soft, positive bowel sounds, tender epigastrium, no organomegaly.no flank tenderness SKIN: No rash, no excessive bruising, petechiae, or purpura. NEUROLOGIC: Cranial nerves II-XII intact without motor/sensory deficit. can lift legs, mild tremor incl lips A/P: 1/ Chronic dysphagia and sensation of fo od sticking in epigastrium with regurgiation and vomiting, bx with active esophagitis suggestive of uncontrolled gerd--has improved with PPI 2/ tubulaR ADENOMA with poor prep PLAN: 1/ cont pantoprazole 40 mg bid 2/ repeat egd, colonoscopy in 1 yr or so , 3/ stop miralax and senna and restart li naclotide 72 mg with colace PFSH Medical History Depression Chronic pain after traumatic injury Nausea & vomiting Hyperlipidemia Type 2 diabetes mellitus with diabetic polyneuropathy Seizure disorder Postural hypotension Anxiety, generalized Hypothyroidism Restless leg syndrome History of DVT (deep vein thrombosis) Gait disturbance Memory deficit Gastroparesis Traumatic brain injury Diabetic neuropathy TBI (traumatic brain injury) Pancreatitis Diabetes Pancreatitis, chronic Surgical History Hx of colonoscopy History of esophagogastroduodenoscopy (EGD) H/O breast surgery Hx of section Hx of tubal ligation History of appendectomy Hx of cholecystectomy H/O thyroidectomy Family History Mother Diabetes Stroke Heart attack Dementia Father Stroke Heart attack Brother Diabetes Sister Diabetes Other Mental health disorder Substance use disorder Social History Household Members: Other Household Members Other:: detention Housing: Skilled Nursing Alcohol intake: never Patient Tobacco Use Status: Current everyday Tobacco user Tobacco use type: Cigarette Cigarettes Per Day: 6 Years Smoked: 30 service: No Current occupational status: unemployed Physical Exam Vital Signs: Last Vital Signs Pulse 75 05/28/23 12:56 BP 114/58 L 05/28/23 12:56 BMI result Body Mass Index 33.6 Assessment & Plan Assessment & Plan (1) Abdominal cramping: Code(s): R10.9 - Unspecified abdominal pain (2) Constipation by delayed colonic transit: Code(s): K59.01 - Slow transit constipation Coding Level of Care Code Est Pt Level 3 (60833) Diagnoses Abdominal cramping R10.9 Constipation by delayed colonic transit K59.01
[2023-05-28 12:56] VITALS: BP 114/58; PULSE 75; BMI 33.6
== END 2023-05-28 13:53 | disposition home or self-care (01) ==
PROVIDERS: PCP Internal Medicine; Visit Provider Internal Medicine Gastroenterology
DX: R10.9 Unspecified abdominal pain (principal); K59.01 Slow transit constipation
CPT/HCPCS: 99213

== ENCOUNTER → 2023-05-28 12:42 | Outpatient (BNVA) | payer MEDICARE, MEDICAID, SELFPAY | PROVIDERS: PCP Internal Medicine; Visit Provider Internal Medicine Gastroenterology | DX: K59.01 Slow transit constipation (principal); R10.9 Unspecified abdominal pain | CPT/HCPCS: 99212 ==

== ENCOUNTER 2023-07-23 13:34 | Emergency (ER) | payer MEDICARE, MEDICAID, SELFPAY ==
--- NOTE | ~2023-07-23 | XR_ITS ---
EXAMINATION: XR LUMBOSACRAL SPINE CLINICAL INFORMATION: Fall, pain COMPARISON: None available. TECHNIQUE: Three views of the lumbosacral spine. FINDINGS: There is maintained lumbar lordosis. The vertebral heights and alignment is normal. There are 2 cages at the L5/S1 disc level supported with bilateral pedicular screws at L5-S1 vertebra with interconnecting rods. Rest the disc heights are normal. No visible acute fracture or dislocation seen. No aggressive lytic or sclerotic process seen in the finding of an IVC filter noted overlying L2 and L3 vertebra. The SI joints are symmetrical. XR/XR lumbar spine 2-3V IMPRESSION: 1. No acute fracture or dislocation. 2. There are 2 cages at the L5-S1 disc level supported with bilateral pedicular screws and interconnecting rods.
--- NOTE | ~2023-07-23 | CT_ITS ---
EXAMINATION: CT HEAD WITHOUT CONTRAST CT CERVICAL SPINE WITHOUT CONTRAST CLINICAL INFORMATION: Fall. Patient on blood thinners. Neck pain. COMPARISON: CT head and neck from 07/20/2022. CT cervical spine from 02/05/2019. TECHNIQUE: Contiguous axial imaging was performed from the skull base to vertex without intravenous administration of contrast. Contiguous axial imaging was performed from the upper chest through the skull base without intravenous administration of contrast. Coronal and sagittal reformats were obtained at the acquisition workstation. This CT examination was performed using dose optimization techniques as appropriate, variously including the following: *Automated exposure control. *Adjustment of mA and/or kV according to patient size (this includes techniques or standardized protocols for targeted exams where dose is matched to indication/reason for exam; i.e. extremities or head). *Use of iterative reconstruction technique. DLP: 1215 mGy-cm FINDINGS: Head: There is no evidence of acute intracranial hemorrhage or edematous territorial infarction. Vee-white matter differentiation is preserved. Confluent hypoattenuation in the periventricular and deep white matter. Proportional prominence of the ventricles and sulcal spaces without evidence of obstructive hydrocephalus. No abnormal mass effect or midline shift. No extra-axial fluid collections. No acute soft tissue or osseous abnormalities. Mild mucosal thickening of the paranasal sinuses. The mastoid air cells and middle ear cavities are clear. Cervical Spine: The atlantooccipital and atlantoaxial articulations remain well aligned. Straightening of the normal cervical lordosis. Mild degenerative anterolisthesis of C4 on C5. Otherwise, there is anatomic alignment of the vertebral bodies and posterior elements. No evidence of acute fracture or subluxation. Chronic mild anterior wedge deformities of the C7 and T1 vertebral bodies. The remaining Vertebral body heights are maintained. Advanced degenerative disc disease at C5-C6. Moderate degenerative disc disease at C7-T1. Mild degenerative disc disease at all additional cervical levels. Facet and uncovertebral joint arthropathy leads to osseous encroachment on the neural foramina at C5-C6. There is no prevertebral soft tissue swelling. There appears to be asymmetric soft tissue fullness along the right base of tongue. Chronic appearance of a 1.7 cm hyperattenuating nodule in the right thyroid bed suggestive of remnant thyroid tissue. Otherwise, the thyroid gland appears atrophic/surgically removed. The remaining cervical soft tissues are within normal limits. The lung apices demonstrate no abnormalities. CT/CT cervical spine wo IV con IMPRESSION: 1. No evidence of acute intracranial hemorrhage or edematous territorial infarction. 2. No evidence of acute fracture or traumatic subluxation of the cervical spine. 3. Extensive underlying microangiopathy and generalized cerebral volume loss. 4. Moderate multilevel degenerative spondyloarthropathy of the cervical spine. 5. There appears to be asymmetric soft tissue fullness along the right base of tongue. Recommend correlation with direct visualization.
[2023-07-23 13:46] VITALS: BP 106/60; BP 109/63; PULSE 101; PULSE 96; RESP 16; TEMP 36.6; O2SAT 93; O2SAT 95; BMI 36.7
--- NOTE | 2023-07-23 14:26 | ECG_ITS ---
Test Reason : FALL Blood Pressure : / mmHG Vent. Rate : 095 BPM Atrial Rate : 095 BPM P-R Int : 150 ms QRS Dur : 064 ms QT Int : 334 ms P-R-T Axes : 036 -19 033 degrees QTc Int : 419 ms Normal sinus rhythm Inferior infarct (cited on or before 14-NOV-2020) Anterior infarct (cited on or before 14-NOV-2020) Abnormal ECG When compared with ECG of 20-JUL-2022 18:55, Premature ventricular complexes are no longer Present Questionable change in initial forces of Anterior leads Referred By: Michaelle Boateng Electronically Signed By:REYNOLD GALLEGOS MD
--- NOTE | 2023-07-23 14:28 | ED.GENADULT ---
HPI - General Adult General Chief complaint: Fall Stated complaint: FALL OUT OF W/C FRI,DIZZY,CARVER,MEMORY LOSS,FROM SNF Time Seen by Provider: 07/23/23 13:55 Source: patient and EMS Mode of arrival: EMS Limitations: other ( history of TBI) History of Present Illness HPI narrative: patient comes to the emergency room via ambulance from [facility]. Three days ago patient had an unwitnessed fall. Patient states that she was sitting in her wheelchair, the wheelchair got away from her, patient fell forward and landed on her forehead. Patient states that since then, she has been more confused than usual, states that she forgets the nurse's name that she has known for years. Also, patient complaining of generalized headache and neck pain. Patient did not sustain any lacerations. Patient takes Xarelto for history of DVTs. Related Data Home Medications Medication Instructions Recorded Confirmed blood-glucose meter (OneTouch 11/14/20 07/20/22 Verio Flex Meter) lancets (OneTouch UltraSoft 11/14/20 07/20/22 Lancets) rosuvastatin 10 mg tablet 1 tab PO BEDTIME 11/14/20 10/06/22 venlafaxine 150 mg 1 cap PO DAILY 11/14/20 10/06/22 capsule,extended release 24 hr pen needle, diabetic 32 gauge x 06/01/21 07/20/22 (BD Ultra-Fine Destiny Pen Needle) gabapentin 100 mg capsule 100 mg PO TID 10/31/21 10/06/22 levothyroxine 112 mcg tablet 112 mcg PO DAILY 10/31/21 10/06/22 metoclopramide HCl 10 mg tablet 10 mg PO BEDTIME 10/31/21 08/11/22 metoclopramide HCl 10 mg tablet 10 mg PO QIDACHS 10/31/21 10/06/22 tramadol 50 mg tablet 50 mg PO Q6H PRN Pain 10/31/21 10/06/22 ipratropium 20 mcg-albuterol 100 2 puff inhalation Q6H PRN Wheezing 07/20/22 10/06/22 mcg/actuation mist for inhalation (Combivent Respimat) nystatin 100,000 unit/gram topical 1 appl topical DAILY 07/20/22 10/06/22 powder (Nyamyc) sitagliptin phosphate 50 mg tablet 1 tab PO DAILY 07/20/22 10/06/22 (Januvia) acetaminophen 650 mg 650 mg PO Q8H PRN Pain 08/11/22 10/06/22 tablet,extended release docusate sodium 100 mg capsule 100 mg PO BID 08/11/22 10/06/22 loratadine 10 mg tablet (Claritin) 10 mg PO DAILY 08/11/22 10/06/22 melatonin 3 mg tablet 3 mg PO BEDTIME 08/11/22 10/06/22 rivaroxaban 10 mg tablet (Xarelto) 1 tab PO DAILY 08/11/22 10/06/22 sennosides 8.6 mg tablet (senna) 17.2 mg PO BEDTIME 08/11/22 10/06/22 lisinopril 5 mg tablet 1 tab PO DAILY 10/12/22 10/12/22 insulin glargine 100 unit/mL (3 unit subcut 11/27/22 mL) subcutaneous pen (Lantus Solostar U-100 Insulin) metformin 500 mg tablet,extended 500 mg PO DAILY 11/27/22 release 24 hr insulin lispro 100 unit/mL subcut 05/28/23 subcutaneous solution (Humalog U-100 Insulin) lorazepam 1 mg tablet 1 mg PO DAILY PRN 05/28/23 ondansetron HCl 8 mg tablet mg PO 05/28/23 ropinirole 2 mg tablet mg PO 05/28/23 Previous Rx's Medication Instructions Recorded Pull-ups #100 ea 02/04/21 levetiracetam 1,000 mg tablet 1,000 mg PO BID 30 days #60 tabs 04/27/21 insulin lispro 100 unit/mL 2 - 14 unit (0.02 - 0.14 mL) 06/02/21 subcutaneous pen (Humalog KwikPen subcut TID #15 mL (U-100) Insulin) pantoprazole 40 mg tablet,delayed 40 mg PO DAILY #60 tabs 11/27/22 release cefuroxime axetil 500 mg tablet 500 mg PO BID #14 tabs 07/23/23 Allergies Allergy/AdvReac Type Severity Reaction Status Date / Time buprenorphine [From Butrans] Allergy Intermediate muscle Verified 07/23/23 13:53 spasm & Vomiting ciprofloxacin [From CIPRO] Allergy Unknown UNKNOWN Verified 07/23/23 13:53 clarithromycin [From Biaxin] Allergy Unknown unknown Verified 07/23/23 13:53 doxycycline Allergy Unknown Unknown Verified 07/23/23 13:53 Review of Systems Review of Systems: Constitutional : No Weight loss, No Fever, No Chills, No Night Sweats, No Fatigue, No Malaise ENT/Mouth : No Hearing loss, No Ear Pain, No Nasal Congestion, No Sinus Pain, No Hoarseness, No sore throat, No Rhinorrhea, No Swallowing Difficulty Eyes: No Eye Pain, No Swelling, No Redness, No Foreign Body, No Discharge, No Vision Changes Cardiovascular : No Chest Pain, No SOB, No Dyspnea on Exertion, No Orthopnea, No Edema, No Palpitations Respiratory : No Cough, No Sputum, No Wheezing, No Smoke Exposure, No Dyspnea Gastrointestinal : No Nausea, No Vomiting, No Diarrhea, No Constipation, No abdominal Pain, No Hematochezia, No Melena Genitourinary : no irregular bleeding, No Dysuria, No Urinary Frequency, No Hematuria, No Urinary Incontinence, No Urgency, No Flank Pain, No Urinary Flow Changes, No Hesitancy Musculoskeletal : complaining of lumbar spine pain, complaining of neck pain bilaterally, No Myalgias, No Joint Swelling Skin : No Skin Lesions, No rash Neuro : No Weakness, No Numbness, No Paresthesias, No Loss of Consciousness, No Dizziness, complaining of confusion and Headache Psych : No Anxiety/Panic, No Depression, No SI/HI/AH/VH, No Social Issues, Heme/Lymph: No Bruising, No Bleeding,No Lymphadenopathy Endocrine : No Polyuria, No Polydipsia, No Temperature Intolerance PMFSH Past Medical History Medical History Depression Chronic pain after traumatic injury Nausea & vomiting Hyperlipidemia Type 2 diabetes mellitus with diabetic polyneuropathy Seizure disorder Postural hypotension Anxiety, generalized Hypothyroidism Restless leg syndrome History of DVT (deep vein thrombosis) Gait disturbance Memory deficit Gastroparesis Traumatic brain injury Diabetic neuropathy TBI (traumatic brain injury) Pancreatitis Diabetes Pancreatitis, chronic Surgical History Hx of colonoscopy History of esophagogastroduodenoscopy (EGD) H/O breast surgery Hx of section Hx of tubal ligation History of appendectomy Hx of cholecystectomy H/O thyroidectomy Family History Family History Mother Diabetes Stroke Heart attack Dementia Father Stroke Heart attack Brother Diabetes Sister Diabetes Other Mental health disorder Substance use disorder Social History Household Members: Other Household Members Other:: group home Housing: Detention Alcohol intake: never Patient Tobacco Use Status: Current everyday Tobacco user Tobacco use type: Cigarette Cigarettes Per Day: 6 Years Smoked: 30 Smoked in Last 30 Days: Yes Use of substances other than those prescribed or required for medical reasons: No Advance Directives: No Advance Directives Information Provided: No service: No Current occupational status: unemployed Physical Exam ED Vital Signs: Vital Signs - 24 hr 07/23/23 13:46 07/23/23 15:58 Temperature 97.9 F 98.2 F Pulse Rate 96 83 Respiratory Rate 16 14 Blood Pressure 106/60 Pulse Oximetry 93 96 Oxygen Delivery Method Room Air Room Air BMI result Body Mass Index 36.7 Const Other: Appearance: Alert. Oriented X3. No acute distress. Eyes: Pupils equal, round and reactive to light. ENT: Pharynx normal. Neck: Normal inspection. Neck supple. No lymph nodes noted. No crepitus, normal flexion and extension, no palpable step-offs CVS: Normal heart rate and rhythm. Pulses normal. Normal S1 and S2 Respiratory: No respiratory distress. Breath sounds normal. No Wheezing. No rales Abdomen: Soft and nontender. No rigidity. No distention. Skin: Skin warm and dry. Normal skin color. Normal skin turgor. Extremities: No lower extremity edema. No Lacerations. No Rash Neuro: Oriented X 3. No motor deficit. No sensory deficit. Moving all extremities. No slurred speech. CN 2 through 12 grossly intact Psych: calm, cooperative, normal affect Course Course Course Narrative: -all of patient's labs and imaging pending. Medical Decision Making Medical Decision Making MDM Narrative: - my interpretation of labs, white blood cell count slightly elevated he states since then he is feels a UTI. - Patient was given a dose of p.o. cefuroxime. Reviewing patient's previous microbiology reports, patient is not sensitive to Bactrim, but sensitive to cephalosporins - my interpretation of CT scan of the head: No intracranial bleed. - Radiology report, no acute intracranial hemorrhage or territorial infarction, no acute fracture or subluxation of the cervical spine. - Patient ready to be returned to her group home. Differential Diagnosis Differential Diagnoses: The differential diagnosis associated with the presentation includes ( Intracranial bleed, deconditioning, UTI) Admission/Observation Consideration of admission/observation: Escalation of care including admission/observation considered ( given patient's complaints and medications she is on, admission was considered) Lab Data MDM Lab Attestation statement: I reviewed the patient's lab results. 07/23/23 14:24 07/23/23 14:24 Labs: Lab Results 07/23/23 07/23/23 Range/Units 14:24 15:29 WBC 12.5 H (4.8-10.8) X10*3/uL RBC 4.93 (4.20-5.50) X10*6/uL Hgb 14.0 (12.0-16.0) g/dl Hct 43.2 (37.0-47.0) % MCV 87.6 (80.0-98.0) fL MCH 28.4 (27.0-33.0) pg MCHC 32.4 (31.0-35.0) g/dl RDW 12.5 (11.0-16.0) % Plt Count 335 D (160-400) X10*3/uL MPV 9.7 (9.4-12.3) fL Immature Gran % (Auto) 0.4 (0.0-0.4) % Neut % (Auto) 70.9 (45-73) % Lymph % (Auto) 22.8 (20-40) % [place] % (Auto) 5.0 (2-11) % Eos % (Auto) 0.7 (0-4) % Baso % (Auto) 0.2 (0-2) % Lymph # (Auto) 2.8 (1.2-4.9) X10*3/uL [place] # (Auto) 0.6 (0.1-1.2) X10*3/uL Eos # (Auto) 0.1 (0.0-0.4) X10*3/uL Baso # (Auto) 0.0 (0.0-0.2) X10*3/uL Abs Immat Gran (auto) 0.05 H (0.00-0.03) X10*3/uL Absolute Neuts (auto) 8.8 H (2.0-8.3) x10*3/uL Absolute Nucleated RBC 0.000 (0.0-0.012) X10*3/uL Nucleated RBC % (auto) 0.0 (0.0-0.2) /100WBC PT 16.0 H (11.1-13.3) SEC INR 1.3 H (0.9-1.1) Sodium 137 (135-145) mmol/L Potassium 4.9 (3.3-5.1) mmol/L Chloride 105 (96-108) mmol/L Carbon Dioxide 25 (22-29) mmol/L Anion Gap 12 (12-20) BUN 14 (9-16) mg/dL Creatinine 1.02 (0.5-1.4) mg/dL Estim Creat Clear Calc 65.3 Estimated GFR 55 Random Glucose 311 H (60-115) mg/dL Calcium 9.5 D (8.4-10.2) mg/dL Total Bilirubin 0.2 (0.0-1.0) mg/dL Direct Bilirubin < 0.2 (0.0-0.5) mg/dL AST 10 (5-31) U/L ALT 23 (0-31) U/L Alkaline Phosphatase 85 (39-117) U/L Troponin I High Sens < 2.7 (<3.5-17.0) ng/L Total Protein 7.0 (6.5-8.0) g/dL Albumin 3.9 (3.5-5.0) g/dL Urine Color Yellow Urine Appearance Turbid Urine pH 5.5 (5.0-9.0) Ur Specific [place] 1.020 (1.005-1.025) Urine Protein 30 (1+) H (Neg-Trace) mg/dL Urine Glucose (UA) >=1000 H (Negative) mg/dL Urine Ketones Trace (Negative) mg/dL Urine Blood Moderate (2+) H (Negative) Urine Nitrite Positive H (Negative) Ur Leukocyte Esterase Large (3+) H (Negative) Urine RBC 0-2 (0-2) /HPF Urine WBC >50 H (0-5) /HPF Ur Squamous Epith Cells 3-5 (0-2) /HPF Urine Bacteria 4+ (None Seen) Hyaline Casts 3-5 (0-2) /LPF Independent Interpretation I performed an independent interpretation of an: Plain X-Ray and CT Scan Interpretation: IMPRESSION: 1. No evidence of acute intracranial hemorrhage or edematous territorial infarction. 2. No evidence of acute fracture or traumatic subluxation of the cervical spine. 3. Extensive underlying microangiopathy and generalized cerebral volume loss. 4. Moderate multilevel degenerative spondyloarthropathy of the cervical spine. 5. There appears to be asymmetric soft tissue fullness along the right base of tongue. Recommend correlation with direct visualization. There is maintained lumbar lordosis. The vertebral heights and alignment is normal. There are 2 cages at the L5/S1 disc level supported with bilateral pedicular screws at L5-S1 vertebra with interconnecting rods. Rest the disc heights are normal. No visible acute fracture or dislocation seen. No aggressive lytic or sclerotic process seen in the finding of an IVC filter noted overlying L2 and L3 vertebra. The SI joints are symmetrical. XR/XR lumbar spine 2-3V IMPRESSION: 1. No acute fracture or dislocation. 2. There are 2 cages at the L5-S1 disc level supported with bilateral pedicular screws and interconnecting rods. Radiology Impression Discussion of test interpretation with radiology: I have reviewed the radiologist's reading. (see above) Critical Care Time Critical Care Time Critical Care Time: Yes Total Critical Care Time: 60 Attestation: I have personally provided critical care time. Time includes review of lab data, radiology results, discussion with consultants, and monitoring for potential decompensation. Intervention performed as documented. Discharge Plan Discharge Clinical Impression: UTI (urinary tract infection), Fall Patient Disposition: Home, Self-Care Instructions: Urinary Tract Infection in Older Adults (ED) Additional Instructions: Your CT scan of the head was negative for an intracranial bleed, CT scan of the neck was negative for fracture or subluxation. Lumbar spine x-ray negative for fracture. You do have a UTI. Please follow-up with your primary care physician tomorrow. If you have any worsening or new symptoms, please return to the emergency room or call 911 Prescriptions: New cefuroxime axetil 500 mg tablet 500 mg PO BID Qty: 14 0RF No Action levetiracetam 1,000 mg tablet 1,000 mg PO BID 30 Days Qty: 60 2RF (DME) pen needle, diabetic [BD Ultra-Fine Destiny Pen Needle] 32 gauge x 5/32 needle See Rx Instructions .ROUTE Rx Instructions: 4 times a day insulin lispro [Humalog KwikPen Insulin] 100 unit/mL insulin pen 2 - 14 unit subcut TID Qty: 15 0RF (DME) blood-glucose meter [OneTouch Verio Flex meter] Mis MISCELLANEOUS venlafaxine 150 mg capsule,extended release 24hr 1 cap PO DAILY (DME) lancets [OneTouch UltraSoft Lancets] Mis MISCELLANEOUS rosuvastatin 10 mg tablet 1 tab PO BEDTIME sennosides [senna] 8.6 mg Tablet 17.2 mg PO BEDTIME melatonin 3 mg Tablet 3 mg PO BEDTIME acetaminophen [Tylenol Arthritis] 650 mg Tablet Extended Release 650 mg PO Q8H PRN (Reason: Pain) docusate sodium 100 mg Capsule 100 mg PO BID loratadine [Claritin] 10 mg Tablet 10 mg PO DAILY Xarelto 10 mg tablet 1 tab PO DAILY nystatin [Nyamyc] 100,000 unit/gram powder 1 appl topical DAILY Januvia 50 mg tablet 1 tab PO DAILY Combivent Respimat 20-100 mcg/actuation mist 2 puff inhalation Q6H PRN (Reason: Wheezing) lisinopril 5 mg tablet 1 tab PO DAILY (DME) Pull-ups Small to medium See Rx Instructions .Route .MEDSUPPLY Qty: 100 0RF Rx Instructions: As directed tramadol 50 mg tablet 50 mg PO Q6H PRN (Reason: Pain) metoclopramide HCl 10 mg tablet 10 mg PO QIDACHS metoclopramide HCl 10 mg tablet 10 mg PO BEDTIME levothyroxine 112 mcg tablet 112 mcg PO DAILY gabapentin 100 mg capsule 100 mg PO TID insulin glargine [Lantus Solostar U-100 Insulin] 100 unit/mL (3 mL) insulin pen subcut metformin 500 mg tablet extended release 24 hr 500 mg PO DAILY pantoprazole 40 mg tablet,delayed release (DR/EC) 40 mg PO DAILY Qty: 60 5RF lorazepam 1 mg tablet 1 mg PO DAILY PRN ondansetron HCl 8 mg tablet PO ropinirole 2 mg tablet PO insulin lispro [Humalog U-100 Insulin] 100 unit/mL solution subcut
[2023-07-23 14:29] LABS: MANUAL DIFF FLAG NO
[2023-07-23 14:34] LABS: Basophils Percent Auto 0.2 % (0-2); Eosinophils Absolute Auto 0.1 X10*3/uL (0.0-0.4); Eosinophils Percent Auto 0.7 % (0-4); Hematocrit 43.2 % (37.0-47.0); Imm Gran Abs Auto 0.05 X10*3/uL (0.00-0.03); Imm Gran Pct Auto 0.4 % (0.0-0.4); Lymphocytes Absolute Auto 2.8 X10*3/uL (1.2-4.9); Lymphocytes Percent Auto 22.8 % (20-40); Mean Corpuscular HGB Conc 32.4 g/dl (31.0-35.0); Mean Corpuscular Hemoglobin 28.4 pg (27.0-33.0); Mean Corpuscular Volume 87.6 fL (80.0-98.0); Mean Platelet Volume 9.7 fL (9.4-12.3); Monocytes Absolute Auto 0.6 X10*3/uL (0.1-1.2); Neutrophils Absolute Auto 8.8 x10*3/uL (2.0-8.3); Neutrophils Percent Auto 70.9 % (45-73); Platelet Count 335 X10*3/uL (160-400); Red Blood Count 4.93 X10*6/uL (4.20-5.50); Red Cell Distribution Width 12.5 % (11.0-16.0); White Blood Count 12.5 X10*3/uL (4.8-10.8)
[2023-07-23 14:45] LABS: Anion Gap 12 (12-20); Blood Urea Nitrogen 14 mg/dL (9-16); Calcium 9.5 mg/dL (8.4-10.2); Carbon Dioxide 25 mmol/L (22-29); Chloride 105 mmol/L (96-108); Creatinine Clr Calc Pharmacy 65.3; Estimated Glomerular Filt Rate 55; Glucose Random 311 mg/dL (60-115); Potassium 4.9 mmol/L (3.3-5.1); Sodium 137 mmol/L (135-145)
[2023-07-23 14:53] LABS: INTERNATIONAL NORM RATIO 1.3 (0.9-1.1)
[2023-07-23 14:58] LABS: Alanine Aminotransferase 23 U/L (0-31); Albumin Level 3.9 g/dL (3.5-5.0); Alkaline Phosphatase 85 U/L (39-117); Aspartate Amino Transferase 10 U/L (5-31); Bilirubin Direct < 0.2 mg/dL (0.0-0.5); Bilirubin Total 0.2 mg/dL (0.0-1.0)
[2023-07-23 15:06] LABS: Troponin-I High Sensitivity < 2.7 ng/L (<3.5-17.0)
[2023-07-23 15:38] LABS: Appearance Urine Turbid; Color Urine Yellow; Glucose Urine UA >=1000 mg/dL (Negative); Leukocyte Esterase Urine Large (3+) (Negative); Nitrite Urine Positive (Negative); PH 5.5 (5.0-9.0); UMIC TRIGGER UACC YES; Urine Blood Moderate (2+) (Negative); Urine Ketones Trace mg/dL (Negative); Urine Protein 30 (1+) mg/dL (Neg-Trace)
[2023-07-23 15:51] LABS: Bacteria Urine 4+ (None Seen); RBC Urine 0-2 /HPF (0-2); UACC Culture Trigger YES; WBC Urine >50 /HPF (0-5)
[2023-07-23 15:58] VITALS: PULSE 83; RESP 14; TEMP 36.8; O2SAT 96
[2023-07-23] MEDS: cefuroxime axetiL 500 MG TABLET PO (16:55)
--- NOTE | 2023-07-23 17:16 | PC.NURSE ---
patient was able to get up to commode with 1 assist. Currently laying in bed, respirations even and unlabored, skin pwd, no apparent distress. awaiting transport back to facility
== END 2023-07-23 18:28 | disposition home or self-care (01) ==
PROVIDERS: Emergency Provider Emergency Medicine
DX: N39.0 Urinary tract infection, site not specified (principal); Z91.81 History of falling; E11.9 Type 2 diabetes mellitus without complications; E78.5 Hyperlipidemia, unspecified; F17.210 Nicotine dependence, cigarettes, uncomplicated; Z86.718 Personal history of other venous thrombosis and embolism; Z87.820 Personal history of traumatic brain injury; Z79.01 Long term (current) use of anticoagulants; Z79.4 Long term (current) use of insulin; Z79.899 Other long term (current) drug therapy
CPT/HCPCS: 36415; 51701; 70450; 72100; 72125; 80048; 80076; 81001; 84484; 85025; 85610; 87086; 87088; 87186; 93005; 99284

== ENCOUNTER 2023-08-15 09:42 | Outpatient (REF) | payer MEDICARE, SELFPAY ==
--- NOTE | ~2023-08-15 | XR_ITS ---
EXAMINATION: XR HIP, RIGHT WITH AP PELVIS CLINICAL INFORMATION: Pain. COMPARISON: Radiographs dated 11/14/2020. TECHNIQUE: AP and frog-leg lateral views of the right hip are submitted, together with an AP view of the pelvis. FINDINGS: There is bony demineralization. The bilateral acetabular joint spaces are well-maintained. There is slight irregularity of the acetabular roofs. The femoral heads are smooth. No fracture or dislocation is seen. The sacroiliac joints are symmetric and well-maintained, and the pubic symphysis is intact. Lumbosacral orthopedic hardware is noted. An inferior vena cava filter device and right lower quadrant impulse generator and leads are noted. There are left pelvic surgical clips. 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 No fracture or dislocation is seen.
== END 2023-08-15 09:43 | disposition home or self-care (01) ==
LOC: HO.HOSX 09:42
PROVIDERS: Visit Provider Physician Assistant
DX: M16.11 Unilateral primary osteoarthritis, right hip (principal)
CPT/HCPCS: 73502; 99212

== ENCOUNTER 2023-08-15 12:22 | Outpatient (AMB) | payer MEDICARE, MEDICAID, SELFPAY ==
--- NOTE | 2023-08-15 12:34 | A.OFFVIS_ITS ---
Intake Vital Signs 08/15/23 12:45 Height 5 ft 5 in Weight 220 lb BMI 36.6 Intake Visit Reasons: New Prob- Right hip pain Intake Note: Deepali erazo 63 year old female presents today for an ER follow up of right hip, DOI 07/23/23. Patient reports having a fall landing on her right side. She presented to [facility] ED same day where xrays were taken. Currently complains of constant pain and has had no improvement since her injury. Finds no relief with percocet and motrin. Allergies buprenorphine [From Butrans] Allergy (Intermediate, Verified 08/15/23 12:43) muscle spasm & Vomiting ciprofloxacin [From CIPRO] Allergy (Unknown, Verified 08/15/23 12:43) UNKNOWN clarithromycin [From Biaxin] Allergy (Unknown, Verified 08/15/23 12:43) unknown doxycycline Allergy (Unknown, Verified 08/15/23 12:43) Unknown HPI New Prob- Right hip pain HPI Details 63-year-old female who presents to the [facility] today for an ER follow-up of right hip pain s/p fall and landing on her right side, 07/23/23. She was seen at ED the same day where x-rays were performed. She currently states she has constant pain in her hip and had no improvement since her injury. She finds no relief with Percocet and Motrin. [facility] Medical History Depression Chronic pain after traumatic injury Nausea & vomiting Hyperlipidemia Type 2 diabetes mellitus with diabetic polyneuropathy Seizure disorder Postural hypotension Anxiety, generalized Hypothyroidism Restless leg syndrome History of DVT (deep vein thrombosis) Gait disturbance Memory deficit Gastroparesis Traumatic brain injury Diabetic neuropathy TBI (traumatic brain injury) Pancreatitis Diabetes Pancreatitis, chronic Surgical History Hx of colonoscopy History of esophagogastroduodenoscopy (EGD) H/O breast surgery Hx of section Hx of tubal ligation History of appendectomy Hx of cholecystectomy H/O thyroidectomy Family History Mother Diabetes Stroke Heart attack Dementia Father Stroke Heart attack Brother Diabetes Sister Diabetes Other Mental health disorder Substance use disorder Social History Household Members: Other Household Members Other:: group home Housing: Care Home Alcohol intake: never Comment: No cameras available at this time Patient Tobacco Use Status: Current everyday Tobacco user Tobacco use type: Cigarette Cigarettes Per Day: 6 Years Smoked: 30 service: No Current occupational status: unemployed Review of Systems Const All systems reviewed & are unremarkable except as noted in HPI and below Physical Exam Vital Signs: BMI result Body Mass Index 36.6 Extrem Other: Right hip: Normal to inspection. She has mild discomfort with ROM of hip and hip flexion. NVI. Results Reviewed Results Reviewed: Xrays were obtained in the office today and personally reviewed by me of the right hip are negative for acute fracture or dislocation. She does have mild right hip oa Assessment & Plan Assessment & Plan (1) Osteoarthritis of right hip: Code(s): M16.11 - Unilateral primary osteoarthritis, right hip Qualifiers: Osteoarthritis type: primary Qualified Code(s): M16.11 - Unilateral primary osteoarthritis, right hip Plan We discussed options which include intraarticular hip injection and she would like to proceed. She has a history of diabetes and she will need to monitor her sugar level at least 72 hours after the injection. I explained to her the hospital will contact her going forward to proceed and if she does not hear from them in the next 2 weeks, she should contact the office. She will follow-up as needed. Orders: Orders XR hip RT w PEL1V Today M25.559 - Pain in unspecified hip FL arthrogram hip RT Today M16.11 - Unilateral primary osteoarthritis, right hip Patient Instructions: Scribed for Guanako Ellison PA-C, by Francisco Hassan medical doctor md, on 08/15/2023 at 12:45 PM EST. Guanako Gregory PA-C, have personally reviewed and agree with the information entered by the scribe. Coding Level of Care Code Est Pt Level 3 (68167) Diagnoses Primary osteoarthritis of right hip M16.11 Osteoarthritis type: primary
[2023-08-15 12:45] VITALS: BMI 36.6
== END 2023-08-15 13:01 | disposition home or self-care (01) ==
PROVIDERS: PCP Internal Medicine; Visit Provider Physician Assistant
DX: M16.11 Unilateral primary osteoarthritis, right hip (principal); W19.XXXA Unspecified fall, initial encounter
CPT/HCPCS: 99213